=== PATIENT | female | born 1990 | race African-American/Black ===

== ENCOUNTER 2017-01-21 16:44 | Emergency (ER) | payer SELFPAY ==
[~2017-01-21] VITALS: Ht 160 cm; Wt 60.0 kg
[~2017-01-21 16:44] MED LIST: ACYCLOVIR400 MG OR; AMOXICILLIN500 MG OR; BACTRIM DS1 TAB PO; CEPHALEXIN500 MG PO; CIPRO500 MG OR; LORTAB 5/3255 MG PO; MELOXICAM7.5 MG PO; METFORMIN500 M1 OR; METFORMIN500 MG OR; METFORMIN500 MG PO; NAPROSYN500 MG OR; NO HOME MEDS; ONDANSETRON4 MG OR; PYRIDIUM200 MG OR; ZITHROMAX250 MG PO
[2017-01-21] MEDS ORDERED: AMOXICILLIN500 MG PO (18:11)
[2017-01-21] MEDS ORDERED: ULTRAM50 M1 PO (18:11)
[2017-01-21 19:07] LABS: HEMATOCRIT 34.6 % (37.0-47.0); HEMOGLOBIN 11.9 g/dl (12.0-16.0); IMMATURE GRANULOCYTES 0.2 % (0.0-1.0); MEAN CELL VOLUME 97.7 fL CALC (80.0-100.0); MEAN CORPUSCULAR HGB 33.6 pG CALC (26.0-32.0); MEAN CORPUSCULAR HGB CONC 34.4 g/L CALC (32.0-36.0); NEUT# 4.42 thou/uL (2.00-7.15); RED BLOOD COUNT 3.54 mill/uL (4.20-5.60); RED CELL DISTRI WIDTH 12.7 % (11.5-15.5)
[2017-01-21 19:13] LABS: ALBUMIN 4.8 g/dL (3.2-5.0); ALKALINE PHOSPHATASE 74 u/l (38-126); ANION GAP 14 (6-22 (CALC)); BILIRUBIN, TOTAL 0.5 mg/dL (0.0-1.4); BUN 15 mg/dL (7-17); BUN/CREATININE RATIO 18 (12-20 (CALC)); CALCIUM 9.8 mg/dL (8.4-10.2); CARBON DIOXIDE 25 mmol/l (22-30); CHLORIDE 109 mmol/l (95-108); CREATININE 0.8 mg/dL (0.5-1.0); GFR > 60 ML/MIN (>=60 (CALC)); GFR FOR AFR.AMER. > 60 ML/MIN (>=60 (CALC)); GLUCOSE 77 mg/dL (65-105); POTASSIUM 3.7 mmol/l (3.5-5.1); SGOT/AST 73 u/l (14-36); SGPT/ALT 25 u/l (9-52); SODIUM 143 mmol/l (137-146); TOTAL PROTEIN 8.8 g/dL (6.3-8.2)
[2017-01-21 19:25] LABS: MYOGLOBIN 18 ng/mL (0 - 62)
[2017-01-21] MEDS ORDERED: LISINOPRIL10 MG PO (23:19)
[2017-01-21 23:29] VITALS: BP 175/107
== END 2017-01-21 23:30 | disposition left against medical advice (07) | DRG 159 ==
LOC: ED 16:44
DX: K03.81 Cracked tooth (principal); E11.9 Type 2 diabetes mellitus without complications; R03.0 Elevated blood-pressure reading, without diagnosis of hypertension; F17.210 Nicotine dependence, cigarettes, uncomplicated; Z79.84 Long term (current) use of oral hypoglycemic drugs; Z91.19 Patient's noncompliance with other medical treatment and regimen

== ENCOUNTER 2017-07-30 01:25 | Emergency (ER) | payer SELFPAY ==
[~2017-07-30] VITALS: Ht 160 cm; Wt 65.0 kg
[~2017-07-30 01:25] MED LIST changes: +AMOXICILLIN500 MG PO; +LISINOPRIL10 MG PO; +ULTRAM50 M1 PO
[2017-07-30] MEDS ORDERED: CODEINE/GUAIFEN1 SOL PO (02:05)
[2017-07-30] MEDS ORDERED: AMOXICILLIN500 MG PO (02:05)
[2017-07-30 03:00] VITALS: BP 155/101
== END 2017-07-30 03:00 | disposition home or self-care (01) | DRG 153 ==
LOC: ED 01:25
DX: J06.9 Acute upper respiratory infection, unspecified (principal); F17.210 Nicotine dependence, cigarettes, uncomplicated; I10 Essential (primary) hypertension; R09.81 Nasal congestion; R05 Cough

== ENCOUNTER 2017-10-18 21:24 | Emergency (ER) | payer SELFPAY ==
[~2017-10-18] VITALS: Ht 160 cm; Wt 65.9 kg
[~2017-10-18 21:24] MED LIST changes: +CODEINE/GUAIFEN1 SOL PO
[2017-10-18 21:49] LABS: HEMATOCRIT 33.1 % (37.0-47.0); HEMOGLOBIN 11.3 g/dl (12.0-16.0); IMMATURE GRANULOCYTES 0.9 % (0.0-1.0); MEAN CELL VOLUME 97.4 fL CALC (80.0-100.0); MEAN CORPUSCULAR HGB 33.2 pG CALC (26.0-32.0); MEAN CORPUSCULAR HGB CONC 34.1 g/L CALC (32.0-36.0); NEUT# 5.43 thou/uL (2.00-7.15); RED BLOOD COUNT 3.4 mill/uL (4.20-5.60); RED CELL DISTRI WIDTH 11.9 % (11.5-15.5)
[2017-10-18 22:02] LABS: ANION GAP 15 (6-22 (CALC)); BILIRUBIN, TOTAL 0.2 mg/dL (0.0-1.4); BUN 20 mg/dL (7-17); BUN/CREATININE RATIO 19 (12-20 (CALC)); CARBON DIOXIDE 27 mmol/l (22-30); CHLORIDE 99 mmol/l (95-108); CREATININE 1.1 mg/dL (0.5-1.0); GFR 60 ML/MIN (>=60 (CALC)); GFR FOR AFR.AMER. > 60 ML/MIN (>=60 (CALC)); POTASSIUM 3.8 mmol/l (3.5-5.1); SGOT/AST 19 u/l (14-36); SGPT/ALT 31 u/l (9-52); SODIUM 138 mmol/l (137-146); TOTAL PROTEIN 7.5 g/dL (6.3-8.2)
[2017-10-18 22:09] LABS: ALBUMIN 3.5 g/dL (3.2-5.0); ALKALINE PHOSPHATASE 125 u/l (38-126)
[2017-10-18 22:48] LABS: URINE BILIRUBIN - DIPSTICK NEGATIVE (NEGATIVE); URINE BLOOD DIPSTICK LARGE (NEGATIVE); URINE COLOR YELLOW; URINE GLUCOSE - DIPSTICK >=1000 mg/dL (NEGATIVE); URINE KETONE NEGATIVE (NEGATIVE); URINE LEUK ESTERASE NEGATIVE (NEGATIVE); URINE NITRITE - DIPSTICK NEGATIVE (Negative); URINE PH 6.5 (4.5-8.0); URINE PROTEIN - DIPSTICK 100 mg/dL (NEG-TRACE); URINE SPECIFIC GRAVITY 1.015; URINE UROBILINOGEN - DIPSTICK 0.2 E.U./dL (0.2)
[2017-10-18 22:52] LABS: BARBITURATES NEGATIVE (NEGATIVE); COCAINE NEGATIVE (NEGATIVE); METHADONE NEGATIVE (NEGATIVE); OXCYCODONE NEGATIVE (NEGATIVE); TETRAHYDROCANNABIONOL NEGATIVE (NEGATIVE); TRICYLIC ANTIDEPRESSANTS NEGATIVE (NEGATIVE); URINE CLARITY SL CLOUDY
[2017-10-18 23:04] LABS: URINE MUCUS FEW hpf (NONE-FEW); URINE SQUAMOUS EPITHELIAL CELL MODERATE EPI/hpf (0-FEW)
[2017-10-19] MEDS ORDERED: METFORMIN500 M1 PO (00:46)
[2017-10-19 01:05] VITALS: BP 136/66
== END 2017-10-19 01:00 | disposition left against medical advice (07) | DRG 894 ==
LOC: ED 21:24
PROVIDERS: Emergency Medicine
DX: F19.90 Other psychoactive substance use, unspecified, uncomplicated (principal); E11.65 Type 2 diabetes mellitus with hyperglycemia; F17.210 Nicotine dependence, cigarettes, uncomplicated; Z91.19 Patient's noncompliance with other medical treatment and regimen

== ENCOUNTER 2018-05-30 09:19 | Emergency (ER) | payer SELFPAY ==
[~2018-05-30] VITALS: Ht 160 cm; Wt 68.6 kg
[~2018-05-30 09:19] MED LIST changes: +METFORMIN500 M1 PO
[2018-05-30] MEDS ORDERED: NORVASC5 M1 PO (09:47)
[2018-05-30] MEDS ORDERED: NOVOLIN N100 UNIT/1 SC (09:47)
[2018-05-30] MEDS ORDERED: METOPROL TAR25 MG PO (09:47)
[2018-05-30] MEDS ORDERED: LISINOPRIL2.5 MG PO (09:48)
[2018-05-30 11:01] LABS: HEMATOCRIT 28.7 % (37.0-47.0); HEMOGLOBIN 9.8 g/dl (12.0-16.0); IMMATURE GRANULOCYTES 0.7 % (0.0-5.0); MEAN CORPUSCULAR HGB 33.4 pG CALC (26.0-32.0); MEAN CORPUSCULAR HGB CONC 34.1 g/L CALC (32.0-36.0); NEUT# 9.76 thou/uL (2.00-7.15); RED BLOOD COUNT 2.93 mill/uL (4.20-5.60); RED CELL DISTRI WIDTH 13.6 % (11.5-15.5)
[2018-05-30 11:11] LABS: ALKALINE PHOSPHATASE 93 u/l (38-126); ANION GAP 8 (6-22 (CALC)); BILIRUBIN, TOTAL 0.3 mg/dL (0.0-1.4); BUN 15 mg/dL (7-17); BUN/CREATININE RATIO 17 (12-20 (CALC)); CARBON DIOXIDE 22 mmol/l (22-30); CREATININE 0.9 mg/dL (0.5-1.0); GFR > 60 ML/MIN (>=60 (CALC)); GFR FOR AFR.AMER. > 60 ML/MIN (>=60 (CALC)); LIPASE 112 u/l (23-300); POTASSIUM 4.1 mmol/l (3.5-5.1); SGOT/AST 18 u/l (14-36); SODIUM 139 mmol/l (137-146)
[2018-05-30 11:14] LABS: ALBUMIN 3.1 g/dL (3.2-5.0)
[2018-05-30 11:21] LABS: CHLORIDE 113 mmol/l (95-108)
[2018-05-30 13:18] VITALS: BP 161/80
== END 2018-05-30 14:08 | disposition home or self-care (01) | DRG 779 ==
LOC: ED 09:19
PROVIDERS: Family Medicine
DX: O03.9 Complete or unspecified spontaneous abortion without complication (principal); I10 Essential (primary) hypertension; E11.9 Type 2 diabetes mellitus without complications; F17.210 Nicotine dependence, cigarettes, uncomplicated; Z79.4 Long term (current) use of insulin
CPT/HCPCS: J2788

== ENCOUNTER 2018-11-18 03:08 | Emergency (ER) | payer SELFPAY ==
[~2018-11-18] VITALS: Ht 160 cm; Wt 65.9 kg
[~2018-11-18 03:08] MED LIST changes: +LISINOPRIL2.5 MG PO; +METOPROL TAR25 MG PO; +NORVASC5 M1 PO; +NOVOLIN N100 UNIT/1 SC
[2018-11-18] MEDS ORDERED: TORADOL PO (04:25)
[2018-11-18 04:47] VITALS: BP 159/106
== END 2018-11-18 04:48 | disposition home or self-care (01) | DRG 556 ==
LOC: ED 03:08
DX: M79.642 Pain in left hand (principal); I10 Essential (primary) hypertension; E11.9 Type 2 diabetes mellitus without complications; F17.200 Nicotine dependence, unspecified, uncomplicated

== ENCOUNTER 2018-11-21 16:48 | Emergency (ER) | payer SELFPAY ==
[~2018-11-21] VITALS: Ht 160 cm; Wt 70.0 kg
[~2018-11-21 16:48] MED LIST changes: +TORADOL PO
[2018-11-21 18:35] LABS: HEMATOCRIT 35.3 % (37.0-47.0); HEMOGLOBIN 12.2 g/dl (12.0-16.0); IMMATURE GRANULOCYTES 0.9 % (0.0-5.0); MEAN CELL VOLUME 96.7 fL CALC (80.0-100.0); MEAN CORPUSCULAR HGB 33.4 pG CALC (26.0-32.0); MEAN CORPUSCULAR HGB CONC 34.6 g/L CALC (32.0-36.0); NEUT# 19.36 thou/uL (2.00-7.15); RED BLOOD COUNT 3.65 mill/uL (4.20-5.60); RED CELL DISTRI WIDTH 12.9 % (11.5-15.5)
[2018-11-21 19:03] LABS: ALBUMIN 3.2 g/dL (3.2-5.0); BUN 10 mg/dL (7-17); BUN/CREATININE RATIO 12 (12-20 (CALC)); CARBON DIOXIDE 23 mmol/l (22-30); CREATININE 0.8 mg/dL (0.5-1.0); GFR > 60 ML/MIN (>=60 (CALC)); GFR FOR AFR.AMER. > 60 ML/MIN (>=60 (CALC)); POTASSIUM 3.8 mmol/l (3.5-5.1); SGOT/AST 13 u/l (14-36); TOTAL PROTEIN 6.9 g/dL (6.3-8.2)
[2018-11-21 19:10] LABS: ALKALINE PHOSPHATASE 189 u/l (38-126); ANION GAP 15 (6-22 (CALC)); BILIRUBIN, TOTAL 0.5 mg/dL (0.0-1.4); CHLORIDE 95 mmol/l (95-108); SODIUM 129 mmol/l (137-146)
[2018-11-21 21:30] VITALS: BP 150/90
== END 2018-11-21 21:30 | disposition home or self-care (01) | DRG 603 ==
LOC: ED 16:48
PROVIDERS: Emergency Medicine
DX: L03.114 Cellulitis of left upper limb (principal); R50.9 Fever, unspecified; R22.32 Localized swelling, mass and lump, left upper limb

== ENCOUNTER 2020-02-05 14:22 | Inpatient (IN) | payer SELFPAY ==
[~2020-02-05] VITALS: Ht 165.1 cm; Wt 54.0 kg
[2020-02-05] VITALS (9 sets, daily range): BP systolic 164–189; BP diastolic 99–117
--- NOTE | 2020-02-05 14:22 | NUR ---
PT TO ROOM VIA EMS; DECREASED RESPONSIVNESS; NOT FOLLOWING COMMANDS OR INTELIGIBLE SPEECH AT THIS TIME
--- NOTE | 2020-02-05 14:48 | NUR ---
PT MEDICATED AT THIS TIME FOR B/P 210/140 MANUAL; HR 155; PT CONTINUES TO FIDGET AND CONTINUOUSLY TOSSING AND TURNING ON STRETCHER; MONITORING DEVICES IN PLACE; SEIZURE PRECUATIONS IN PLACE; WILL CONTINUE TO MONITOR
[2020-02-05 15:06] LABS: HEMATOCRIT 36.3 % (37.0-47.0); HEMOGLOBIN 12.5 g/dl (12.0-16.0); IMMATURE GRANULOCYTES 0.8 % (0.0-5.0); MEAN CELL VOLUME 93.1 fL CALC (80.0-100.0); MEAN CORPUSCULAR HGB 32.1 pG CALC (26.0-32.0); MEAN CORPUSCULAR HGB CONC 34.4 g/dL CAL (32.0-36.0); NEUT# 19.22 thou/uL (2.00-7.15); RED BLOOD COUNT 3.9 mill/uL (4.20-5.60); RED CELL DISTRI WIDTH 12.2 % (11.5-15.5)
[2020-02-05 15:07] LABS: URINE BILIRUBIN - DIPSTICK NEGATIVE (NEGATIVE); URINE BLOOD DIPSTICK LARGE (NEGATIVE); URINE COLOR YELLOW; URINE GLUCOSE - DIPSTICK >=1000 mg/dL (NEGATIVE); URINE KETONE NEGATIVE (NEGATIVE); URINE LEUK ESTERASE NEGATIVE (NEGATIVE); URINE NITRITE - DIPSTICK NEGATIVE (Negative); URINE PH 6.5 (4.5-8.0); URINE PROTEIN - DIPSTICK >=300 mg/dL (NEG-TRACE); URINE UROBILINOGEN - DIPSTICK 0.2 E.U./dL (0.2)
[2020-02-05 15:10] LABS: URINE RBC 25-50 RBC/hpf (0-5); URINE SQUAMOUS EPITHELIAL CELL FEW EPI/hpf (0-FEW)
--- NOTE | 2020-02-05 15:12 | NUR ---
PT MEDICATED PER MAR FOR HI BLOOD SUGAR; IVF INFUSING; MONITORING DEVICES IN PLACE; PT ANSWERING QUESTIONS WITH SLURRED SPEECH; STILL UNABLE TO FOLLOW COMMANDS; MONITORING DEVICES IN PLACE; WILL CONTINUE TO CLOSELY MONITOR
[2020-02-05 15:14] LABS: BILIRUBIN, TOTAL 0.6 mg/dL (0.0-1.4); CREATININE 1.3 mg/dL (0.5-1.0); POTASSIUM 3.4 mmol/l (3.5-5.1); TOTAL PROTEIN 8.9 g/dL (6.3-8.2)
--- NOTE | 2020-02-05 16:20 | NUR ---
PT MEDICATED WITH VALIUM PER MAR; PT CONTINUOUS FLAILING AND PULLING AT MONITORING DEVICES NA D
--- NOTE | 2020-02-05 16:20 | NUR ---
IV SITE; ATTEMPTED TO REORIENT; MD AT BEDSIDE FOR FURTHER EVALUATION; PT CONTINUES 1:1
[2020-02-05 16:57] LABS: PROTHROMBIN TIME 9.5 SECONDS (9.0-12.5)
--- NOTE | 2020-02-05 17:12 | NUR ---
PT IN RADIOLOGY UNABLE TO REMAIN STILL; MEDICATED WITH VERSED PER DR MCKEON ORDERS; PT ABLE TO TOLERATE SCAN
--- NOTE | 2020-02-05 17:20 | NUR ---
ADALBERTO FABIAN AT BEDSIDE TO ASSIST WITH LUMBAR PUNCTURE; TIME OUT PERFORMED @1731 ALL TEAM MEMBERS IN AGREEMENT; PROCEDURE STARTED AT 1737 AND ENDED @1747; PT TOLERATED WELL; VSS; WILL CONTINUE TO MONITOR
--- NOTE | 2020-02-05 18:20 | NUR ---
PT RESTING ON STRETCHER; NO S/S OF DISTRESS NOTED; IVF AND ANTIBIOTICS INFUSING PER MAR; MONITORING DEVICES IN PLACE; VSS; WILL CONTINUE TO MONITOR
--- NOTE | 2020-02-05 18:54 | NUR ---
PT MEDICATED PER MAR FOR BGL 394; VSS; WILL CONTINUE TO MONITOR
--- NOTE | 2020-02-05 19:02 | NUR ---
REPORT GIVEN TO DUANE SHEARER
--- NOTE | 2020-02-05 20:08 | NUR ---
REPORT TO NATASHA ZEPEDA/ICU
--- NOTE | 2020-02-05 20:33 | NUR ---
NO CHANGE IN NEURO STATUS. PT TO FLOOR WITH MONITOR/O2/MASK/SEIZURE PADS.
--- NOTE | 2020-02-05 20:38 | NUR ---
RECEIVED PT TO RM 1. PT MOVING ALL EXTREMITIES. PT DOES NOT FOLLOW COMMANDS OR RESPOND VERBALLY. PT TRANSFERRED TO BED WITHOUT INCIDENT.
--- NOTE | 2020-02-05 21:38 | NUR ---
SPOKE WITH EMERGENCY MUCKER OPERATOR, HOLLEY, INFORMED OF PT CONDITION. PASS CODE PROVIDED.
--- NOTE | 2020-02-05 21:40 | NUR ---
SPOKE WITH AUNT, ANAIS, PER HOLLEY EMERGENCY CONTACT, BERNARD TO PROVIDE INFO AND PASS CODE.
--- NOTE | 2020-02-05 22:00 | NUR ---
PT MOVING EXTREMITES, NO VERBAL RESPONSE. SIDE RAILS PADDED.
--- NOTE | 2020-02-05 22:56 | NUR ---
B/P 189/117 LABETOLOL 10MG IV GIVEN PER MAR
[2020-02-06] VITALS (17 sets, daily range): BP systolic 132–193; BP diastolic 75–114
--- NOTE | 2020-02-06 00:15 | NUR ---
LAB AT BEDSIDE FOR TROP DRAW.
--- NOTE | 2020-02-06 02:04 | NUR ---
PT WITH EYES CLOSED, NO DISTRESS NOTED. CALL ARIAS IN REACH.
--- NOTE | 2020-02-06 04:00 | NUR ---
PT WITH EYES CLOSED, REMAINS NON VERBAL. PT MOVES WITH TACTILE STIMULI.
--- NOTE | 2020-02-06 06:05 | NUR ---
LAB AT BEDSIDE FOR DRAW.
[2020-02-06 06:31] LABS: MAGNESIUM 1.9 mg/dL (1.6-2.3)
--- NOTE | 2020-02-06 06:45 | NUR ---
REPORT RECEIVED FROM NATASHA ZEPEDA. CARE ASSUMED
[2020-02-06 06:56] LABS: HEMATOCRIT 30.8 % (37.0-47.0); HEMOGLOBIN 10.6 g/dl (12.0-16.0); IMMATURE GRANULOCYTES 0.4 % (0.0-5.0); MEAN CELL VOLUME 94.5 fL CALC (80.0-100.0); MEAN CORPUSCULAR HGB 32.5 pG CALC (26.0-32.0); MEAN CORPUSCULAR HGB CONC 34.4 g/dL CAL (32.0-36.0); NEUT# 12.17 thou/uL (2.00-7.15); RED BLOOD COUNT 3.26 mill/uL (4.20-5.60); RED CELL DISTRI WIDTH 12.4 % (11.5-15.5)
[2020-02-06 07:03] LABS: BILIRUBIN, TOTAL 0.5 mg/dL (0.0-1.4); CREATININE 1.3 mg/dL (0.5-1.0); POTASSIUM 3.3 mmol/l (3.5-5.1)
[2020-02-06 07:05] LABS: ALBUMIN 2.7 g/dL (3.2-5.0); TOTAL PROTEIN 6.4 g/dL (6.3-8.2)
--- NOTE | 2020-02-06 07:30 | NUR ---
PT RESTING IN BED WITH EYES CLOSED. PT AROUSES TO VERBAL STIMULI. PT IS ALERT AND ABLE TO STATE NAME ONLY. PT STATES THAT SHE DOES NOT KNOW WHERE SHE IS AND THAT IT IS YEAR 2009. PT REORIENTED. PT BP 168/113. DR JANSEN NOTIFIED. PT GIVEN AM MEDICATION EARLY FOR ELEVATED BP. PT HAD TO BE REMINDED FREQUENTLY TO DRINK WATER AND SWALLOW PILLS. PT REQUESTING CELL PHONE BE BROUGHT IN WILL NOTIFY FAMILY MEMBERS OF PT REQUEST. CALL LIGHT IN REACH. WILL CONTINUE TO MONITOR.
--- NOTE | 2020-02-06 08:00 | NUR ---
DR JANSEN AT BEDSIDE AND LAB AT BEDSIDE FOR REPEAT LACTIC ACID.
--- NOTE | 2020-02-06 09:15 | NUR ---
SPOKE WITH AUNT SUSSY MARIN WHO SPOKE WITH MOTHER WHO IS HEARING IMPAIRED AND RECEIVED VERBAL PERMISSION TO PLACE PICC LINE WITH SECOND WITNESS Judy CERVANTES RN.
--- NOTE | 2020-02-06 10:01 | NUR ---
MEDICATIONS GIVEN. BUCIO PLACED USING STERILE TECHNIQUE. IMMEADIATE RETURN OF URINE NOTED. PT TOLERATED WELL. LINENS CHANGED DUE TO MESES BLOOD ON SHEETS.
--- NOTE | 2020-02-06 10:15 | NUR ---
[id number] THIS STERILE PREPARATION TECHNICIAN AT BEDSIDE MULTIPLE TIMES TO ENCOURAGE PT TO KEEP ARM STRATIGHT FOR IV INFUSION. PT VERBALIZES UNDERSTANDING THEN NURSES EXITS ROOM AND PT DOES COMPLETE OPPOSITE. NURSE RE ENTERS ROOM WHEN IV ALARMS TO REORIENT PT AGAIN. PT CRIES ON OCCASION. PT HAVING NOSE BLEEDS AT THIS TIME WELL.
--- NOTE | 2020-02-06 10:52 | NUR ---
PT CONTINUOUSLY AND REPEATEDLY NOT FOLLOWING INSTRUCTIONS TO LEAVE ARM STRAIGHT FOR IV INFUSION.
--- NOTE | 2020-02-06 11:07 | NUR ---
DR JANSEN UPDATED ON PT STATUS. ORDERS RECEIVED TO HOLD ATIVAN FOR NOW DUE TO INCREASED CONFUSION. AND IF WORSENING CONFUSION IF PERSISTS OR NOSE BLEEDS PERSISTS TO CONSIDER INTUBATION.
--- NOTE | 2020-02-06 11:32 | NUR ---
S: KOREY CARLSON is a 29 F who presents with sepsis and meningitis. She has a history of diabetes and drug abuse. All medications in patient's chart were reviewed. O: VS: BP 185/101 mmHg, P 106 bpm, RR 16 breaths/min, T 97.3 F W 54 kg, HT 165.1 cm, Scr= 1.3 mg/dL, CrCl= 54.4 ml/min A: Blood culture is pending. CSF culture is pending. P: Patient is on ceftriaxone 2g IV Q12H. Vancomycin ordered for pharmacy to dose. Start Vancomycin 1g IV Q24H. Vancomycin trough is drawn before the 4th dose on 02/09/20 at 0830. Vancomycin goal trough is between 15-20 mcg/ml. Pharmacy will follow and or advise on antibiotics use as needed.
--- NOTE | 2020-02-06 11:58 | NUR ---
LAB AT BEDSIDE TO DRAW NOON TROPONIN.
--- NOTE | 2020-02-06 13:20 | NUR ---
PT TO RADIOLOGY VIA WHEELCHAIR ACCOMAPNIED BY HIDE SELECTOR IN STABLE CONDITION FOR PICC LINE PLACEMENT
--- NOTE | 2020-02-06 14:00 | NUR ---
PT RETURNED FROM RADIOLOGY VIA STRETCHER ACCOMPANIED BY TICK INSPECTOR. PT HAS DUAL LUMEN PICC TO JULY. PT TRANSFERRED TO BED X3 PERSON ASSIST. PT TEARFUL, ARGUMENTITIVE WITH STAFF. PT DOES NOT MAKE SENSE. PT PULLING AT EQUIPMENT. PT ENCOURAGED TO LEAVE ALL EQUIPMENT IN PLACE. PT STATES THAT SHE IS NOT MESSING WITH ANYTHING.
--- NOTE | 2020-02-06 14:05 | NUR ---
PT ATTEMPTING TO GET OUT OF BED. THIS NURSE INTO ROOM. THIS PT STATES I HAVE TO POOP. THIS PATIENT ASSISTED UP TO BSC. PT NOTED TO HAVE WEAK GAIT MORE SO ON LEFT SIDE. PT NOTED TO HAVE SLURRED SPEECH. ASKED IF THIS IS HER NORM. PT STATED NO. PT IS ALERT TO NAME AND PLACE. PT STATES THAT IS IS OCTOBER 2009. PT IMMEADIATELY ASSISTED BACK TO BED. DR JANSEN NOTIFIED. STROKE ALERT CALLED DOCUMENTATION FOLLOWS.
--- NOTE | 2020-02-06 14:28 | NUR ---
DR JANSEN NOTIFIED OF SLURRED SPEECH & LEFT SIDED WEAKNESS, DIFFERENCE IN CRIMINAL INVESTIGATIVE AGENT, & FACIAL DROOP. PT DENIES PREVIOUS STROKE. PER DR JANSEN, CALL STROKE ALERT & REPEAT CT.
--- NOTE | 2020-02-06 14:31 | NUR ---
STROKE ALERT CALLED
--- NOTE | 2020-02-06 14:40 | NUR ---
THIS RN AT BEDSIDE FOR STROKE ALERT; MEND ASSESSMENT COMPLETED SCORE 6; PT ALERT, SPEECH SLURRED, CONFUSED TO MONTH AND YEAR, VISUAL DEFICIT IN LEFT UPPER VISON FIELD, AND ATAXIA TO LEFT UPPER AND LOWER EXTREMITIES;PT TAKEN TO CT WITH ICU NURSE DUANE GEORGE; TELENEUROLOGY CONSULTED;
--- NOTE | 2020-02-06 14:41 | NUR ---
PT OUT THE DOOR TO CT WITH DUANE GEORGE & CHARLOTTE STROKE RN FROM ER.
--- NOTE | 2020-02-06 15:11 | NUR ---
PT RETURNS FROM CT BY STRETCHER WITH RN. TRANSFERED TO BED.
--- NOTE | 2020-02-06 15:22 | NUR ---
DR JANSEN NOTIFIED OF [facility] AND RECCOMMENDATIONS OF TELE NEUROLOGIST.
--- NOTE | 2020-02-06 15:45 | NUR ---
RECEIVED ORDERS FROM DR JANSEN FOR MRI. ORDERS PLACED. RADIOLOGY NOTIFIED. NO TECH AVAILABLE FOR MRI TODAY. DR JANSEN NOTIFIED.
--- NOTE | 2020-02-06 16:38 | NUR ---
PT RESTING IN BED WITH EYES CLOSED. RESP ARE EVEN AND UNLABORED. NO DISTRESS NOTED. CALL LIGHT IN REACH. WILL CONTINUE TO MONITOR.
--- NOTE | 2020-02-06 16:52 | NUR ---
THIS HARD TILE SETTER INTO ROOM TO COMPLETE ACCUCHECK PT STARTS CRYING STATING I HURT WHEN QUESTIONED WHERE SHE STATES HER ENTIRE BODY HURTS ALL OVER. INSTRUCTED PT TO TRY AND RELAX.
--- NOTE | 2020-02-06 17:30 | NUR ---
PT SET UP IN BED FOR PM MEAL AT THIS TIME. PT STATES THAT SHE WILL EAT. ASSISTED IN TRAY SET UP.
--- NOTE | 2020-02-06 18:00 | NUR ---
PT NOTED TO NOT BE EATING AND TO BE SLEEPING. PT ENCOURAGED TO EAT. PT STATES THAT SHE WILL EAT.
--- NOTE | 2020-02-06 19:10 | NUR ---
PT AWAKE WHEN ENTERING ROOM. PT STARTED CRYING, STATED SHE WANTS TO GO HOME. PT ABLE TO STATE DATE OF AND LOCATION.
--- NOTE | 2020-02-06 20:00 | NUR ---
PT UNDER BLANKET. RESPONDS TO VERBAL STIMULI. L EYE MORE CLOSED THAN R. L CORRECTIONS CORPORAL WEAKER THAN R. PT MOVES L UPPER EXTREMITY, ABLE TO HOLD L ARM UP. NO DEFICITS NOTED TO LOWER EXXTREMITIES. SPEECH IS SLURRED, ORIENTED TO NAME, LOCATION. CALL ARIAS IN REACH.
--- NOTE | 2020-02-06 21:20 | NUR ---
HOLLEY CALLED, PASSWORD GIVEN. PROVIDED UPDATE ON PT.
--- NOTE | 2020-02-06 22:00 | NUR ---
PT RELATED SHE WAS HUNGRY, JUICE AND CRACKERS PROVIDED.
--- NOTE | 2020-02-06 22:17 | NUR ---
PT ROLLED ONTO L SIDE. CALL ARIAS IN REACH.
[2020-02-07] VITALS (10 sets, daily range): BP systolic 111–186; BP diastolic 66–114
--- NOTE | 2020-02-07 | NUR ---
PT WITH EYES CLOSED, RESPONDED TO VERBAL STIMULI. PT ORIENTED TO PERSON AND PLACE. CALL ARIAS IN REACH.
--- NOTE | 2020-02-07 01:38 | NUR ---
PT PULLING AT BLANKETS AND GOWN. PT CRYING, DOESNT WANT TO BE HERE. ROLLED ON R SIDE, LARGER BLANKET PROVIDED. PROVIDED REORIENTATION AND CALMING WORDS. PT TO TRY TO GO BACK TO SLEEP.
--- NOTE | 2020-02-07 02:16 | NUR ---
PT REMOVED MONITOR LEADS, SA02. INFORMED PT SHE NEEDS TO LEAVE THOSE ON. PT RELATED SHE WOULD. REPOSITIONED LEADS FOR PT COMFORT. PLACED BLANKET ON PT. CALL ARIAS IN REACH.
--- NOTE | 2020-02-07 04:00 | NUR ---
PT WITH EYES CLOSED, RESPONDED TO VERBAL STIMULI. NEURO NOTED.
--- NOTE | 2020-02-07 04:55 | NUR ---
PT WITH HEAVY BLANKET OVER HEAD. SKIN WARM TO TOUCH. PT WANTS BLANKET BACK OVER HEAD.
[2020-02-07 05:47] LABS: HEMATOCRIT 26.1 % (37.0-47.0); HEMOGLOBIN 8.7 g/dl (12.0-16.0); IMMATURE GRANULOCYTES 0.4 % (0.0-5.0); MEAN CORPUSCULAR HGB 32.3 pG CALC (26.0-32.0); MEAN CORPUSCULAR HGB CONC 33.3 g/dL CAL (32.0-36.0); NEUT# 8.2 thou/uL (2.00-7.15); RED BLOOD COUNT 2.69 mill/uL (4.20-5.60); RED CELL DISTRI WIDTH 12.8 % (11.5-15.5)
--- NOTE | 2020-02-07 06:00 | NUR ---
PT REMAINS UNDER BLANKETS, PT RELATED SHE LIKES TO BE HOT. INFORMED OF MRI TODAY. PT WITH CONTINUED L HAND WEAKNESS. NO CHANGE THIS SHIFT.
[2020-02-07 06:15] LABS: ALKALINE PHOSPHATASE 78 u/l (38-126); ANION GAP 5 (6-22 (CALC)); BILIRUBIN, TOTAL 0.4 mg/dL (0.0-1.4); BUN 16 mg/dL (7-17); BUN/CREATININE RATIO 13 (12-20 (CALC)); CARBON DIOXIDE 24 mmol/l (22-30); CHLORIDE 110 mmol/l (95-108); CREATININE 1.2 mg/dL (0.5-1.0); GFR 53 ML/MIN (>=60 (CALC)); GFR FOR AFR.AMER. > 60 ML/MIN (>=60 (CALC)); MAGNESIUM 1.9 mg/dL (1.6-2.3); POTASSIUM 3.6 mmol/l (3.5-5.1); SGOT/AST 35 u/l (14-36); SODIUM 136 mmol/l (137-146)
--- NOTE | 2020-02-07 07:35 | NUR ---
pt awake in bed; crying loudly; very emotional; trashing about in the bed; telegraphic typewriter installer at bedside for assessment; pt unable to explained to this telegraphic typewriter installer concerns; pt admits to not knowing why she is here and stating she wants to go home; admission, plan of care explained; relaxation tech explained and pt more relaxed; pt alert to person and place; able to state year only; denies pain; no n/v noted; resp even and unlabored; lungs clear; skin color wnl; ra; hr reg; strong pulses; no edema noted; st on monitor; abd soft with bs present; no bm noted per telegraphic typewriter installer; saba to gravity draining clear yellow urine; dual picc line intact to ariane with ivf infusing without complication; no redness or edema noted at site; facial edema noted; call light within reach; will continue to monitor
--- NOTE | 2020-02-07 07:50 | NUR ---
Dr Smyth present at bedside to assess pt and discuss plan of care;
--- NOTE | 2020-02-07 08:54 | NUR ---
boiled eggs provided as per request
--- NOTE | 2020-02-07 10:07 | NUR ---
resting in bed with eyes closed; no apparent distress noted; sr on monitor; saba to gravity; iv intact and patent; repositions self; call light within reach; will continue to monitor
--- NOTE | 2020-02-07 11:08 | NUR ---
awake; anxious; sitting on side of bed requesting to go home; serevity of illness explained; plan of care including MRI explained; pt very adamant about leaving; agree to MRI; bed alarm active for pt safety; will continue to monitor
--- NOTE | 2020-02-07 12:00 | NUR ---
awake in bed eating lunch; no apparent distress noted; pt admits to being uncomfortable; pt states "I'm laying here naked"; pt continues to remove gown and cardiac monitoring leads; plan of care explained; pt alert and oriented; admits to primary care Dr Benedict; admits to getting meds filled by Dr Benedict; pt states she has not seen Dr Cruz in a "long time"; saba to gravity; st on monitor; iv intact and patent; increased visual observation for pt safety; bed alarm activated for pt safety; importance of not signing out AMA explained; pt explained risk of leaving AMA; will continue to monitor
--- NOTE | 2020-02-07 12:18 | NUR ---
call received from internet designer for mother pt Melanie Escalante; update provided; mother states via light armored vehicle officer she's going to beau the hospital; mother very concerned and daughter; plan of care including MRI explained; mother to call this conventional underwriter back at 1500 for update and planned visitation; will continue to monitor
--- NOTE | 2020-02-07 14:00 | NUR ---
pt transferred to MRI via wc accompanied by this commercial lines underwriter in stable condition; will continue to monitor
--- NOTE | 2020-02-07 14:50 | NUR ---
returned to unit via wc accompanied by this field underwriter in stable condition; monitoring attachments attached; po fluids/ snack provided as per request; pt wanting to leave AMA: advised to stay; saba to gravity; will continue to monitor
--- NOTE | 2020-02-07 15:05 | NUR ---
mother Deanne Escalante called via hair designer; update provided; mother to visit
--- NOTE | 2020-02-07 15:16 | NUR ---
bp 186/114; medicated with labetalol as per orders; pt has removed monitoring attachmens; reapplied; pt very frustrated and tearful; crying loudly; reassured; will continue to monitor
--- NOTE | 2020-02-07 15:26 | NUR ---
mother present at bedside
--- NOTE | 2020-02-07 15:35 | NUR ---
Screen: Speech Therapy not indicated at this time.
--- NOTE | 2020-02-07 15:35 | NUR ---
staff present at bedside; pt very adamant about leaving AMA: Cyril Duval LPN at bedside to interpret sign lang to mother; pt condition explained it great detail; risk of leaving AMA explained to pt and mother including detoriation in condition, stroke and ; pt alert and oriented; able to answer questions appropriately; will notify MD
--- NOTE | 2020-02-07 15:53 | NUR ---
Dr Smyth called per typewriter mechanic; explained pt is wanting to sign out AMA: bp of 180s/110s explained; pt prev medicated with labetalol as per orders; pt alert and oriented; mother Melanie present at bedside and unable to convince pt to stay; pt concerned about hospital bill and going to work; no orders received;
--- NOTE | 2020-02-07 16:00 | NUR ---
Coby Campos APRN present at bedside to speak with pt in regards to leaving AMA; will continue to monitor
--- NOTE | 2020-02-07 16:40 | NUR ---
mother at bedside; pt demanding to go home; AMA explained again in great detail; pt educated on potential decline in condition including ; elevated BP explained and conditions hich could arise from elevated bp; pt decline to allow leader writer to assess glucose; catheter and picc line removed; pt verbalizing understanding of leaving AMA and verbalizes understanding of potential decline in condition; pt able to states name, month, year and place; able to answer questions such as city, president; pt left unit AMA
[2020-02-07] MEDS ORDERED: LISINOPRIL20 M1 PO (16:48)
[2020-02-07] MEDS ORDERED: AMLODIPINE BESYL5 MG PO (16:48)
[2020-02-07] MEDS ORDERED: LOPRESSOR 550 MG/TAB PO (16:48)
--- NOTE | 2020-02-07 17:15 | NUR ---
this grant writer received a call from Dr Smyth; MRI reviewed; pt with acute ischemia as per report; Pt Mary Ann Brooks called at [phone] and informed of these results of acute stroke; pt advised to seek medical attention/ follow up with primary care physician HONG
--- NOTE | 2020-02-07 17:30 | NUR ---
s/o Dago called; passcode verified; updated on pt status/ pt left AMA; MRI results reviewed with next of kin; Dago informed pt will require follow up with pcp
== END 2020-02-07 16:40 | disposition left against medical advice (07) | DRG 871 ==
LOC: EDBD 14:22 → ED 14:22 → ED-I 19:00 → ED 19:10 → ICU 19:11 → ED-I 19:11 → ED 19:11 → ICU 19:56
PROVIDERS: Emergency Medicine; Internal Medicine; ADMIT Internal Medicine; ATTEND Internal Medicine
PROC: 009U3ZX Drainage of Spinal Canal, Percutaneous Approach, Diagnostic (ICD-10-PCS; principal; 2020-02-05)
PROC: 05H933Z Insertion of Infusion Device into Right Brachial Vein, Percutaneous Approach (ICD-10-PCS; 2020-02-06)
DX: A41.9 Sepsis, unspecified organism (principal); G93.41 Metabolic encephalopathy; G04.90 Encephalitis and encephalomyelitis, unspecified; I63.89 Other cerebral infarction; E87.2 Acidosis; R47.81 Slurred speech; R29.702 NIHSS score 2; R65.20 Severe sepsis without septic shock; I16.0 Hypertensive urgency; I10 Essential (primary) hypertension; E11.65 Type 2 diabetes mellitus with hyperglycemia; E87.6 Hypokalemia; F17.200 Nicotine dependence, unspecified, uncomplicated; Z79.4 Long term (current) use of insulin; Z20.828 Contact with and (suspected) exposure to other viral communicable diseases
CPT/HCPCS: J0131; J2060; J3360

== ENCOUNTER 2020-02-17 12:56 | Emergency (ER) | payer SELFPAY ==
[~2020-02-17] VITALS: Ht 165.1 cm; Wt 62.7 kg
[~2020-02-17 12:56] MED LIST changes: +AMLODIPINE BESYL5 MG PO; +LISINOPRIL20 M1 PO; +LOPRESSOR 550 MG/TAB PO
[2020-02-17 13:59] LABS: IMMATURE GRANULOCYTES 0.5 % (0.0-5.0); MEAN CELL VOLUME 95.3 fL CALC (80.0-100.0); MEAN CORPUSCULAR HGB 32.2 pG CALC (26.0-32.0); MEAN CORPUSCULAR HGB CONC 33.8 g/dL CAL (32.0-36.0); NEUT# 14.06 thou/uL (2.00-7.15); RED BLOOD COUNT 3.6 mill/uL (4.20-5.60); RED CELL DISTRI WIDTH 12.3 % (11.5-15.5)
[2020-02-17 14:07] LABS: HEMATOCRIT 34.3 % (37.0-47.0); HEMOGLOBIN 11.6 g/dl (12.0-16.0)
[2020-02-17 14:25] LABS: ACT PARTIAL THROMBO TIME 26.5 SECONDS (20.0-32.5); PROTHROMBIN TIME 9.7 SECONDS (9.0-12.5)
[2020-02-17 15:08] LABS: CREATININE 1.5 mg/dL (0.5-1.0)
[2020-02-17 16:13] LABS: URINE BILIRUBIN - DIPSTICK NEGATIVE (NEGATIVE); URINE BLOOD DIPSTICK MODERATE (NEGATIVE); URINE COLOR YELLOW; URINE GLUCOSE - DIPSTICK >=1000 mg/dL (NEGATIVE); URINE KETONE TRACE mg/dL (NEGATIVE); URINE LEUK ESTERASE NEGATIVE (NEGATIVE); URINE NITRITE - DIPSTICK NEGATIVE (Negative); URINE PH 6.5 (4.5-8.0); URINE PROTEIN - DIPSTICK >=300 mg/dL (NEG-TRACE); URINE SPECIFIC GRAVITY 1.015; URINE UROBILINOGEN - DIPSTICK 0.2 E.U./dL (0.2)
[2020-02-17 16:18] LABS: URINE SQUAMOUS EPITHELIAL CELL FEW EPI/hpf (0-FEW)
[2020-02-17 17:49] VITALS: BP 157/104
--- NOTE | 2020-02-19 09:54 | NUR ---
PT WAS TRANSFERRED FROM ER BUT LEFT SOME OF HER HOME MEDS. THEY ARE IN PHARMACY.
== END 2020-02-17 18:11 | disposition short-term general hospital (02) | DRG 999 ==
LOC: ED 12:56
PROVIDERS: Student in an Organized Health Care Education/Training Program
DX: R56.9 Unspecified convulsions (principal); E11.00 Type 2 diabetes mellitus with hyperosmolarity without nonketotic hyperglycemic-hyperosmolar coma (NKHHC); N17.9 Acute kidney failure, unspecified; G93.40 Encephalopathy, unspecified; R79.89 Other specified abnormal findings of blood chemistry; F17.200 Nicotine dependence, unspecified, uncomplicated; Z79.4 Long term (current) use of insulin; Z86.73 Personal history of transient ischemic attack (TIA), and cerebral infarction without residual deficits

== ENCOUNTER 2020-03-02 22:43 | Emergency (ER) | payer SELFPAY ==
[~2020-03-02] VITALS: Ht 165.1 cm; Wt 63.6 kg
[2020-03-02 23:29] LABS: HEMATOCRIT 31.7 % (37.0-47.0); HEMOGLOBIN 10.6 g/dl (12.0-16.0); IMMATURE GRANULOCYTES 0.5 % (0.0-5.0); MEAN CELL VOLUME 97.2 fL CALC (80.0-100.0); MEAN CORPUSCULAR HGB 32.5 pG CALC (26.0-32.0); MEAN CORPUSCULAR HGB CONC 33.4 g/dL CAL (32.0-36.0); NEUT# 11.31 thou/uL (2.00-7.15); RED BLOOD COUNT 3.26 mill/uL (4.20-5.60); RED CELL DISTRI WIDTH 12.5 % (11.5-15.5)
[2020-03-02 23:44] LABS: BILIRUBIN, TOTAL 0.3 mg/dL (0.0-1.4); CREATININE 1.4 mg/dL (0.5-1.0); POTASSIUM 3.9 mmol/l (3.5-5.1)
[2020-03-02 23:56] LABS: ALBUMIN 3.3 g/dL (3.2-5.0); TOTAL PROTEIN 7.1 g/dL (6.3-8.2)
[2020-03-03] MEDS ORDERED: DILANTIN100 MG PO (04:42)
[2020-03-03 05:10] VITALS: BP 101/54
== END 2020-03-03 05:10 | disposition home or self-care (01) | DRG 639 ==
LOC: ED 22:43
PROVIDERS: Family Medicine
DX: E11.65 Type 2 diabetes mellitus with hyperglycemia (principal); I10 Essential (primary) hypertension; G40.909 Epilepsy, unspecified, not intractable, without status epilepticus; F17.200 Nicotine dependence, unspecified, uncomplicated; Z86.73 Personal history of transient ischemic attack (TIA), and cerebral infarction without residual deficits
CPT/HCPCS: J2060

== ENCOUNTER 2020-03-07 18:33 | Inpatient (IN) | payer SELFPAY ==
[~2020-03-07] VITALS: Ht 165.1 cm; Wt 63.0 kg
[~2020-03-07 18:33] MED LIST changes: +DILANTIN100 MG PO
--- NOTE | 2020-03-07 18:33 | NUR ---
PT ARRIVES VIA EMS UNRESPONSIVE WITH NASAL TRUMPET. PT FLAILING ARMS AND LEGS, INCOHHERENT. OXYGEN VIA NON REBREATHER.EDP TO BEDSIDE
--- NOTE | 2020-03-07 18:35 | NUR ---
VERBALIZES INCOHERENTLY DOES NOT FOLLOW COMMANDS. INCONTINENT OF URINE. CLOTHES REMOVED AND PLACED IN GOWN.
--- NOTE | 2020-03-07 19:15 | NUR ---
SOFT BILAT WRIST RESTRAINTS APPLIED. PT PULLING AT EVERYTHING. BUCIO PLACED WITHOUT PROBLEM, SPECIMEN TO LAB.
[2020-03-07 19:40] LABS: HEMATOCRIT 27.2 % (37.0-47.0); HEMOGLOBIN 8.8 g/dl (12.0-16.0); IMMATURE GRANULOCYTES 0.7 % (0.0-5.0); MEAN CELL VOLUME 98.9 fL CALC (80.0-100.0); MEAN CORPUSCULAR HGB CONC 32.4 g/dL CAL (32.0-36.0); NEUT# 18.22 thou/uL (2.00-7.15); RED BLOOD COUNT 2.75 mill/uL (4.20-5.60); RED CELL DISTRI WIDTH 12.9 % (11.5-15.5)
[2020-03-07 19:43] LABS: URINE BILIRUBIN - DIPSTICK NEGATIVE (NEGATIVE); URINE BLOOD DIPSTICK SMALL (NEGATIVE); URINE COLOR YELLOW; URINE GLUCOSE - DIPSTICK >=1000 mg/dL (NEGATIVE); URINE KETONE NEGATIVE (NEGATIVE); URINE LEUK ESTERASE NEGATIVE (NEGATIVE); URINE NITRITE - DIPSTICK NEGATIVE (Negative); URINE PROTEIN - DIPSTICK 100 mg/dL (NEG-TRACE); URINE SPECIFIC GRAVITY >=1.030; URINE UROBILINOGEN - DIPSTICK 0.2 E.U./dL (0.2)
[2020-03-07 19:49] LABS: URINE RBC 0-2 RBC/hpf (0-5); URINE SQUAMOUS EPITHELIAL CELL RARE EPI/hpf (0-FEW); URINE WBC 0-2 WBC/hpf (0-5)
[2020-03-07 19:55] LABS: ALBUMIN 3.3 g/dL (3.2-5.0); BILIRUBIN, TOTAL 0.3 mg/dL (0.0-1.4); CREATININE 1.3 mg/dL (0.5-1.0); POTASSIUM 4.2 mmol/l (3.5-5.1); TOTAL PROTEIN 7.3 g/dL (6.3-8.2)
--- NOTE | 2020-03-07 20:00 | NUR ---
ACTIVELY MOVING IN BED PULLING AT RESTRAINTS
--- NOTE | 2020-03-07 21:00 | NUR ---
CONTINUES TO NOT FOLLOW COMMANDS, MOVING ALL EXTREMITIES.
[2020-03-07] MEDS ORDERED: LABETALOL HYDR100 MG PO (21:39)
[2020-03-07] MEDS ORDERED: ATORVASTATIN CA20 MG PO (21:42)
[2020-03-07] MEDS ORDERED: HYDROXYZ HCL25 MG PO (21:44)
[2020-03-07] MEDS ORDERED: LISI20TA5 PO (21:46)
[2020-03-07] MEDS ORDERED: FLUOXETINE20 MG PO (21:47)
--- NOTE | 2020-03-07 22:00 | NUR ---
NO SIGNIFICANT CHANGE IN EXAM.
[2020-03-07] MEDS ORDERED: EQ ASPIRIN LOW81 MG PO (22:11)
[2020-03-07] MEDS ORDERED: NORVASC5 M1 PO (22:13)
--- NOTE | 2020-03-07 23:00 | NUR ---
DECREASED AGITATION AT TIMES.
[2020-03-08] VITALS (33 sets, daily range): BP systolic 123–199; BP diastolic 69–120
--- NOTE | 2020-03-08 | NUR ---
OPENS EYES TO VOICE. MINIMAL VERBALIZATION.
--- NOTE | 2020-03-08 00:22 | NUR ---
UOP 1600 CC
--- NOTE | 2020-03-08 00:49 | NUR ---
29 yr old black female admitted icu8 per stretcher from er. transferred x4 to bed. bed weight obtained. pt is sedated. does not fully arouse. o2 cont per nc. youth nutritional monitor shows sinus tach hr 113. #20 lt hand saline lock. #22 rt hand. ns bolus cont. history obtained per er & old record. fall, seizure & air/contact precautions initiated.
--- NOTE | 2020-03-08 00:50 | NUR ---
Admission Note Report Given to: DUANE STRONG Transported by: Wheelchair X Stretcher Transported with: X Nurse Transporter X Patent IV X O2 X Stock Trader Location: X ICU MS2
--- NOTE | 2020-03-08 02:30 | NUR ---
dr spears notified of cont htn. orders rec'd.
--- NOTE | 2020-03-08 04:00 | NUR ---
rousing slightly. confused. plumber cub shows sinus tach hr 126.
[2020-03-08 05:29] LABS: BASO% 1 % (0-3); EOS% 1 % (0-8); HEMATOCRIT 25.2 % (37.0-47.0); HEMOGLOBIN 8.5 g/dl (12.0-16.0); IMMATURE GRANULOCYTES 0.5 % (0.0-5.0); LYMPH% 18 % (15-41); MEAN CELL VOLUME 98.8 fL CALC (80.0-100.0); MEAN CORPUSCULAR HGB 33.3 pG CALC (26.0-32.0); MEAN CORPUSCULAR HGB CONC 33.7 g/dL CAL (32.0-36.0); MONO% 9 % (2-13); NEUT# 14.29 thou/uL (2.00-7.15); NEUT% 72 % (42-76); PLATELET COUNT 419 thou/uL (130-400); RED BLOOD COUNT 2.55 mill/uL (4.20-5.60); RED CELL DISTRI WIDTH 13.1 % (11.5-15.5)
--- NOTE | 2020-03-08 05:45 | NUR ---
rt here. ekg obtained.
[2020-03-08 05:53] LABS: ALBUMIN 2.8 g/dL (3.2-5.0); ALKALINE PHOSPHATASE 124 u/l (38-126); ANION GAP 6 (6-22 (CALC)); BUN 23 mg/dL (7-17); BUN/CREATININE RATIO 23 (12-20 (CALC)); CARBON DIOXIDE 25 mmol/l (22-30); CHLORIDE 108 mmol/l (95-108); GFR > 60 ML/MIN (>=60 (CALC)); GFR FOR AFR.AMER. > 60 ML/MIN (>=60 (CALC)); POTASSIUM 4.8 mmol/l (3.5-5.1); SODIUM 133 mmol/l (137-146); TOTAL PROTEIN 6.6 g/dL (6.3-8.2)
[2020-03-08 06:00] LABS: BILIRUBIN, TOTAL 1.4 mg/dL (0.0-1.4); SGOT/AST 56 u/l (14-36)
--- NOTE | 2020-03-08 06:45 | NUR ---
REPORT RECEIVED FROM LIGIA MORGAN. CARE ASSUMED.
--- NOTE | 2020-03-08 07:35 | NUR ---
PT RESTING IN BED AWAKE. PT IS ALERT AND ORIENTED X3. SHIFT ASSESSMENT COMPLETED AT THIS TIME. IV PATENT X2. CALL LIGHT IN REACH. WILL CONTINUE TO MONITOR.
--- NOTE | 2020-03-08 08:01 | NUR ---
PT note Patient is screened for PT intervention and it is felt she has no needs at this time
--- NOTE | 2020-03-08 08:08 | NUR ---
DR JANSEN AT BEDSIDE.
--- NOTE | 2020-03-08 08:15 | NUR ---
RESTRAINTS REMOVED AT THIS TIME
--- NOTE | 2020-03-08 09:00 | NUR ---
SITTER AT BEDSIDE AT THIS TIME
--- NOTE | 2020-03-08 09:27 | NUR ---
BOYFRIEND HOLLEY CALLED WITH CONCERNS OF PT SMOKING K2 TO OVERDOSE AND NOT FOLLOWING UP WITH DOCTOR APPTS. REQUESTING IF PT CAN BE CHRISTOPHE ACTED EXPLAINED THAT I WOULD HAVE TO NOTIFY MD OF CONCERNS AND IT WOULD BE HIS DECISION TO CHRISTOPHE ACT.
--- NOTE | 2020-03-08 09:40 | NUR ---
PT PULLING AT MEDICAL EQUIPMENT AND THRASHING IN BED. REORIENTED PT. SITTER REMAINS AT BEDSIDE.
--- NOTE | 2020-03-08 10:04 | NUR ---
NOTIFIED DR JANSEN REFERENCE INCREASED AGITATION OF PATIENT ANF FAMILY CONCERNS AND THAT PT WAS SMOKING K2 IN LARGE AMOUNTS TO OVERDOSE. NEW ORDERS RECEIVED. ORDER RECEIVED FOR CHRISTOPHE BAY. SITFLOR AT BEDSIDE.
--- NOTE | 2020-03-08 10:10 | NUR ---
NOTIFIED BOYFRIED/ NEXT OF KIN HOLLEY THAT PT WAS NOW SAEED ACTED.
--- NOTE | 2020-03-08 10:32 | NUR ---
PT MEDICATED WITH ATIVAN PER SEP AND MD ORDERS FOR AGITATION AND PULING AT MEDICAL EQUIPMENT. SITTER REMAINS AT BEDSIDE.
--- NOTE | 2020-03-08 11:30 | NUR ---
PT REFUSED MEAL TRAY. WILL HOLD 1130 NOVOLOG DUE TO RECENT LEVEMIR BEING GIVEN AND PT NOT EATING. SITTER AT BEDSIDE. WILL CONTINUE TO MONITOR.
--- NOTE | 2020-03-08 13:00 | NUR ---
PT RESTING IN BED WITH EYES CLOSED. RESP ARE EVEN AND UNLABORED. NO DISTRESS NOTED. CALL LIGHT IN REACH. WILL CONTINUE TO MONITOR
--- NOTE | 2020-03-08 13:45 | NUR ---
PT NOTED TO HAVE FACIAL SWELLING AND ANGIOEDEMA. TONGUE NOT SWOLLEN. PT DENIES DIFFICULTY BREATHING O2 100% ON ROOM AIR. DR JANSEN NOTIFIED. NEW ORDERS RECEIVED.
--- NOTE | 2020-03-08 14:07 | NUR ---
LISINOPRIL LISTED AN ALLERGY NOW
--- NOTE | 2020-03-08 14:29 | NUR ---
PT RESTING IN BED PT MEDICATED PER MAR WITH BENADRYL AND SOLUMEDROL.
--- NOTE | 2020-03-08 15:00 | NUR ---
REASSESSED SWELLING OF FACE AND NECK. FACE AND NECK STILL APPEARS SWOLLEN. WILL CONTINUE TO MONITOR.
--- NOTE | 2020-03-08 16:00 | NUR ---
PT RESTING IN BED WITH EYES CLOSED. VSS ON MONITOR. SITTER REMIANS AT BEDSIDE. RESP ARE EVEN AND UNLABORED. NO DISTRESS NOTED. WILL CONTINUE TO MONITOR.
--- NOTE | 2020-03-08 16:37 | NUR ---
MOTHER CALLED FOR UPDATE THROUGH INTERPRETING SERVICES. ABLE TO VERIFY NAME AND . UPDATE PROVIDED.
--- NOTE | 2020-03-08 16:55 | NUR ---
LINA BABB PHONED FOR UPDATE. UPDATE PROVIDED.
--- NOTE | 2020-03-08 18:00 | NUR ---
PT RESTING IN BED. PT MORE EASILY AROUSABLE. PT LESS SWOLLEN AT THIS TIME. SET UP FOR PM MEAL. EXPLAINED SAEED ACT. PT UPSET. CALL LIGHT IN REACH.WILL CONTINUE TO MONITOR.
--- NOTE | 2020-03-08 19:30 | NUR ---
awakens easily. no c/o voiced. band saw operator cake cutting shows sinus tach. #20 lt hand saline lock. #22 rt hand ns infusing @ 75cchr. po fluids taken well. saba cath in place. urine clear yellow. covid swab collected. pt VERY uncooperative with swab collection. pt aware of taylor act. sitter @ bedside.
--- NOTE | 2020-03-08 21:30 | NUR ---
face remains edematous. dr talbert notified. he will put orders in computor.
--- NOTE | 2020-03-08 21:55 | NUR ---
benadryl 25mg iv given.
[2020-03-09] VITALS (18 sets, daily range): BP systolic 138–180; BP diastolic 90–110
--- NOTE | 2020-03-09 00:01 | NUR ---
eyes closed. no distress. sitter @ bedside.
--- NOTE | 2020-03-09 02:00 | NUR ---
resting quietly. resp even & unlabored. no apparent distress.
--- NOTE | 2020-03-09 04:40 | NUR ---
bp 180/104. apresoline 10mg ivp given. slight facial edema cont. benadryl 25mg ivp given.
--- NOTE | 2020-03-09 09:00 | NUR ---
PT SEEN RESTING IN THE BED, NO DISTRESS, NO COMPLAINTS. LUNGS CLEAR, DECREASED, RA. PT STATES BM YESTERDAY. NO ACTING OUT, NO ATTEMPTS TO HARM SELF OR OTHERWISE. PT PROVIDED 2 UNITS INSULIN THIS AM PER BS 205.
--- NOTE | 2020-03-09 12:32 | NUR ---
PT CONTINUES TO REST IN THE BED WITHOUT MUCH INTERACTION WITH OTHERS. PT ABLE TO SWALLOW PILLS NORMALLY, THEN RETURNS TO SLEEP. SITTER AT BEDSIDE.
--- NOTE | 2020-03-09 16:00 | NUR ---
PT REMAINS AT REST IN THE BED, NO DISTRESS, NO COMPLAINTS. PT'S MOTHER CALLED VIA TRANSLATION LINE, WAS PROVIDED AN UPDATE. BLOOD PRESSURE REMAINS ELEVATED EVEN AFTER HYDRALAZINE GIVEN, SO IVF TURNED DOWN TO KVO. SITTER REMAINS AT BEDSIDE, PT IS RESTING CALMLY IN THE BED IN NO DISTRESS.
--- NOTE | 2020-03-09 18:45 | NUR ---
REPORT RECEIVED FROM SHASHANK ZEPEDA. CARE ASSUMED.
--- NOTE | 2020-03-09 19:30 | NUR ---
PT RESTING IN BED WITH EYES CLOSED. AROUSES TO VERBAL STIMULI. PT IS ALERT AND ORIENTED X3. SHIFT ASSESSMENT COMPLETED AT THIS TIME. IV PATENT X2. CALL LIGHT IN REACH. SITTER AT BEDSIDE. WILL CONTINUE TO MONITOR.
--- NOTE | 2020-03-09 19:40 | NUR ---
ACCUCHECK IS CRITICAL HIGH. STAT GLUCOSE ORDERED.
--- NOTE | 2020-03-09 20:00 | NUR ---
LAB AT BEDSIDE FOR GLUCOSE
--- NOTE | 2020-03-09 21:00 | NUR ---
DR DOMINGO NOTIFIED OF GLUCOSE 406. NEW ORDERS RECEIVED.
--- NOTE | 2020-03-09 22:04 | NUR ---
PT RESTING IN BED WITH EYES CLOSED. RESP ARE EVEN AND UNLABORED. NO DISTRESS NOTED. CALL LIGHT IN REACH. WILL CONTINUE TO MONITOR.
[2020-03-10] VITALS (7 sets, daily range): BP systolic 145–173; BP diastolic 84–107
--- NOTE | 2020-03-10 00:03 | NUR ---
PT RESTING IN BED WITH EYES CLOSED. RESP ARE EVEN AND UNLABORED. NO DSITRESS NOTED. CALL LIGHT IN REACH. SITTER AT BEDSIDE. WILL CONTINUE TO MONITOR.
--- NOTE | 2020-03-10 02:05 | NUR ---
PT RESTING IN BED WITH EYES CLOSED. RESP ARE EVEN AND UNLABORED. NO DISTRESS NOTED. CALL LIGHT IN REACH. WILL CONTINUE TO MONITOR.
--- NOTE | 2020-03-10 02:07 | NUR ---
PT RESTING IN BED WITH EYES CLOSED. RESP ARE EVEN AND UNLABORED. NO DISTRESS NOTED. CALL LIGHT IN REACH. WILL CONTINUE TO MONITOR.
--- NOTE | 2020-03-10 04:04 | NUR ---
LAB AT BEDSIDE FOR AM LAB DRAWS. PT TOLERATED WELL.
[2020-03-10 05:26] LABS: HEMATOCRIT 28.5 % (37.0-47.0); HEMOGLOBIN 9.2 g/dl (12.0-16.0); MEAN CELL VOLUME 100.4 fL CALC (80.0-100.0); MEAN CORPUSCULAR HGB 32.4 pG CALC (26.0-32.0); MEAN CORPUSCULAR HGB CONC 32.3 g/dL CAL (32.0-36.0); RED BLOOD COUNT 2.84 mill/uL (4.20-5.60); RED CELL DISTRI WIDTH 13.3 % (11.5-15.5)
[2020-03-10 05:57] LABS: ALBUMIN 2.5 g/dL (3.2-5.0); MAGNESIUM 2.1 mg/dL (1.6-2.3); POTASSIUM 4.6 mmol/l (3.5-5.1); TOTAL PROTEIN 5.8 g/dL (6.3-8.2)
--- NOTE | 2020-03-10 06:11 | NUR ---
PT RESTING IN BED WITH EYES CLOSED. AROUSES TO VERBAL STIMULI. RESP EVEN AND UNLABORED. VSS ON MONITOR. SITTER AT BEDSIDE. WILL CONTINUE TO MONITOR.
[2020-03-10 06:19] LABS: BILIRUBIN, TOTAL 0.1 mg/dL (0.0-1.4); CREATININE 2.3 mg/dL (0.5-1.0)
--- NOTE | 2020-03-10 08:58 | NUR ---
PT SEEN AWAKE, ALERT, ORIENTED X 3. LUNGS CLEAR, RA. PT CONTENT TO REST IN THE BED WITH EYES CLOSED MOST OF THE TIME, NO INDICATION OF DISTRESS. SITTER REMAINS AT BEDSIDE.
--- NOTE | 2020-03-10 09:47 | NUR ---
PT SEEN BY DR DOMINGO THIS MORNING. SHE CONTINUES TO INSIST THAT SHE DOES NOT SMOKE K-2 AND WISHES EVERYONE WOULD QUIT THINKING THAT. PT BROUGHT TO TEARS DR DOMINGO EXPLAINED TO HER THAT WE ARE KEEPING HER BEST INTEREST IN MIND AND WANT TO SEE HER BLOOD PRESSURE AND BLOOD SUGARS BETTER CONTROLLED.
[2020-03-10 12:56] LABS: URINE BILIRUBIN - DIPSTICK NEGATIVE (NEGATIVE); URINE BLOOD DIPSTICK TRACE-INTACT (NEGATIVE); URINE COLOR YELLOW; URINE GLUCOSE - DIPSTICK >=1000 mg/dL (NEGATIVE); URINE KETONE NEGATIVE (NEGATIVE); URINE LEUK ESTERASE NEGATIVE (NEGATIVE); URINE NITRITE - DIPSTICK NEGATIVE (Negative); URINE PH 5.5 (4.5-8.0); URINE PROTEIN - DIPSTICK Trace mg/dL (NEG-TRACE); URINE SPECIFIC GRAVITY 1.025; URINE UROBILINOGEN - DIPSTICK 0.2 E.U./dL (0.2)
--- NOTE | 2020-03-10 16:28 | NUR ---
PT SEEN RESTING IN THE BED WITHOUT COMPLAINT, SITTER REMAINS AT BEDSIDE.
--- NOTE | 2020-03-10 19:15 | NUR ---
RECEIVED REPORT. BEDRESTING WITH EYES CLOSED. PSA AT BEDSIDE. B/P WNL. RESP EVEN AND NONLABORED. N/C AT THSI TIME
--- NOTE | 2020-03-10 21:00 | NUR ---
BEDRESTING. TV OFF. QUIET. COVERED CHIN DOWN. FLAT AFFECT
--- NOTE | 2020-03-10 22:03 | NUR ---
BEDRESTING. PSA AT BEDSIDE. RESP EVEN AND NONLABORED. NO REQUESTS. QUIET
[2020-03-11] VITALS (9 sets, daily range): BP systolic 144–176; BP diastolic 87–107
--- NOTE | 2020-03-11 | NUR ---
BEDRESTING. EYES CLOSED. RESP EVEN AND NONLABORED. N/C AT THIS TIME
--- NOTE | 2020-03-11 01:39 | NUR ---
BEDRESTING. NURSING TEACHER AT BEDSIDE. RESP EVEN AND NONLABORED. TOLERATED IV MEDICATION WELL
--- NOTE | 2020-03-11 03:42 | NUR ---
BEDRESTING. EYES CLOSED. N/C VOICED
--- NOTE | 2020-03-11 05:30 | NUR ---
BEDRESTING. PSA AT BEDSIDE. TURNS AND REPOSITIONS IN BED. READILY AWAKENS. TOLERATING IV MEDS RX. N/C VOICED
[2020-03-11 05:49] LABS: HEMATOCRIT 29.3 % (37.0-47.0); HEMOGLOBIN 9.1 g/dl (12.0-16.0); MEAN CELL VOLUME 101.7 fL CALC (80.0-100.0); MEAN CORPUSCULAR HGB 31.6 pG CALC (26.0-32.0); MEAN CORPUSCULAR HGB CONC 31.1 g/dL CAL (32.0-36.0); RED BLOOD COUNT 2.88 mill/uL (4.20-5.60); RED CELL DISTRI WIDTH 13.2 % (11.5-15.5)
[2020-03-11 06:10] LABS: POTASSIUM 3.8 mmol/l (3.5-5.1)
--- NOTE | 2020-03-11 06:45 | NUR ---
REPORT RECEIVED FROM ISREAL ZEPEDA. CARE ASSUMED.
--- NOTE | 2020-03-11 07:30 | NUR ---
PT RESTING IN BED AWAKE. PT IS ALERT AND ORIENTED X3. SHIFT ASSESSMENT COMPLETED AT THIS TIME. IV PATENT X1. PT TEARFUL STATING SHE WANTS TO GO HOME. EXPLAINED SHE IS STILL SAEED ACTED BUT WE COULD DISCUSS OPTIONS WITH MD ON ROUNDS. PT THANKFUL. CALL LIGHT IN REACH. SITTER AT BEDSIDE. WILL OCNTINUE TO MONITOR.
--- NOTE | 2020-03-11 08:05 | NUR ---
DR DOMINGO AT BEDSIDE AT THIS TIME
--- NOTE | 2020-03-11 08:15 | NUR ---
BUCIO REMOVED AT THIS TIME. PT TOLERATED WELL
--- NOTE | 2020-03-11 08:38 | NUR ---
PHONED PT MOTHER AND ASKED HER TO COME VISIT APPROVED BY .
--- NOTE | 2020-03-11 09:45 | NUR ---
MOTHER AT BEDSIDE WITH PATIENT. EXPLAINED PLAN OF CARE AND NEED OF PATIENT TO STAY IN HOSPITAL. MOTHER RECEPTIVE.
--- NOTE | 2020-03-11 10:15 | NUR ---
PT LAYING IN BED VISITING WITH MOTHER. RESP ARE EVEN AND UNLABORED. VSS ON MONITOR. CALL LIGHT IN REACH. WILL CONTINUE TO MONITOR.
--- NOTE | 2020-03-11 11:30 | NUR ---
SET UP FOR NOON MEAL AT THIS TIME AND GUEST TRAY GIVEN FOR MOM WELL
--- NOTE | 2020-03-11 12:58 | NUR ---
DR DOMINGO AND [place] [facility] AT BEDSIDE AT THIS TIME. SANTA AT BEDSIDE TO HELP APPLY PATIENT FOR MEDICAID
[2020-03-11] MEDS ORDERED: NOVOLOG MIX SC (13:04)
[2020-03-11] MEDS ORDERED: CLONIDINE0.1 MG PO (13:04)
[2020-03-11] MEDS ORDERED: MEDDOSEPAK PO (13:04)
[2020-03-11] MEDS ORDERED: LABETALOL200 MG PO (13:04)
--- NOTE | 2020-03-11 13:33 | NUR ---
SCRIPTS FAXED TO [facility] FOR THEM TO BE FILLED AND DELIVERED TO [facility]
--- NOTE | 2020-03-11 13:35 | NUR ---
PT SITTING UP ON SIDE OF BED VISITING WITH MOM. RESP ARE EVEN AND UNLABORED. NO DISTRESS NOTED. CALL LIGHT IN [place]OR. WILL CONTINUE TO MONITOR
--- NOTE | 2020-03-11 15:19 | NUR ---
PT RESTING IN BED VISITING WITH MOTHER. RESP CONTINUE TO BE EVEN AND UNLABORED NO DISTRESS NOTED. CALL LIGHT IN REACH. WILL CONTINUE TO MONITOR.
--- NOTE | 2020-03-11 16:40 | NUR ---
DISCHARGE INSTRUCTIONS REVIEWED WITH PATIENT AND MOTHER. BOTH VERBALIZED UNDERSTANDING. MEDS PROVIDED FROM [facility]. PT PROVIDED SCRUBS TO GO HOME IN WELL. IV DC'D CATH TIP INTACT.
--- NOTE | 2020-03-11 16:55 | NUR ---
Discharge instructions given. Patient verbalizes understanding of same. Discharged in stable condition via Wheelchair to Home with family. All belongings sent with pt.
== END 2020-03-11 16:55 | disposition home or self-care (01) | DRG 305 ==
LOC: ED 18:33 → ED-I 19:54 → ED 19:54 → ED-I 21:28 → ED 23:52 → ICU 23:53 → ED-I 03-08 → ED 03-08 → ICU 03-08 00:01 → ED 03-08 00:50 → ICU 03-11 16:55
PROVIDERS: Emergency Medicine; Internal Medicine; ADMIT Internal Medicine; ATTEND Internal Medicine
DX: I16.0 Hypertensive urgency (principal); N17.9 Acute kidney failure, unspecified; I67.4 Hypertensive encephalopathy; I10 Essential (primary) hypertension; E11.65 Type 2 diabetes mellitus with hyperglycemia; G40.909 Epilepsy, unspecified, not intractable, without status epilepticus; T78.3XXA Angioneurotic edema, initial encounter; T46.4X5A Adverse effect of angiotensin-converting-enzyme inhibitors, initial encounter; T38.0X5A Adverse effect of glucocorticoids and synthetic analogues, initial encounter; F17.200 Nicotine dependence, unspecified, uncomplicated; F12.90 Cannabis use, unspecified, uncomplicated; Z86.73 Personal history of transient ischemic attack (TIA), and cerebral infarction without residual deficits; Z20.828 Contact with and (suspected) exposure to other viral communicable diseases
CPT/HCPCS: J2060

== ENCOUNTER 2020-03-23 09:45 | Inpatient (IN) | payer SELFPAY ==
[~2020-03-23] VITALS: Ht 165.1 cm; Wt 59.5 kg
[2020-03-23] VITALS (22 sets, daily range): BP systolic 122–170; BP diastolic 67–97
[~2020-03-23 09:45] MED LIST changes: +ATORVASTATIN CA20 MG PO; +CLONIDINE0.1 MG PO; +EQ ASPIRIN LOW81 MG PO; +FLUOXETINE20 MG PO; +HYDROXYZ HCL25 MG PO; +LABETALOL HYDR100 MG PO; +LABETALOL200 MG PO; +LISI20TA5 PO; +MEDDOSEPAK PO; +NOVOLOG MIX SC
--- NOTE | 2020-03-23 10:02 | NUR ---
the patient arrived via EMS, combative. She was medicated with Haldol and Ativan.
--- NOTE | 2020-03-23 10:30 | NUR ---
tHE PATIENT IS STILL IN RESTRAINTS, ATTEMPTING TO GET OFF BED AND PULL AT WIRES. REORIENTED
[2020-03-23 10:42] LABS: HEMATOCRIT 29.5 % (37.0-47.0); HEMOGLOBIN 9.8 g/dl (12.0-16.0); IMMATURE GRANULOCYTES 0.4 % (0.0-5.0); MEAN CORPUSCULAR HGB 31.6 pG CALC (26.0-32.0); MEAN CORPUSCULAR HGB CONC 33.2 g/dL CAL (32.0-36.0); NEUT# 14.11 thou/uL (2.00-7.15); RED BLOOD COUNT 3.1 mill/uL (4.20-5.60); RED CELL DISTRI WIDTH 12.5 % (11.5-15.5)
--- NOTE | 2020-03-23 10:45 | NUR ---
sKIN INTACT, NO BREAKDOWN, OR REDNESS NOTED. RESTRAINTS REMAIN ON
--- NOTE | 2020-03-23 10:51 | NUR ---
tHE PATIENT IS STILL TRTING TO GET OFF BED EVEN WITH RESTRAINTS. MEDICATED WITH LABETALOL
[2020-03-23 10:57] LABS: MEAN CELL VOLUME 95.2 fL CALC (80.0-100.0)
--- NOTE | 2020-03-23 11:00 | NUR ---
sKIN INTACT, NO REDNESS, PATIENT DROWSY BUT STILL ATTMPTING TO PULL AT WIRES AND GET OFF BED.
[2020-03-23 11:02] LABS: URINE BILIRUBIN - DIPSTICK NEGATIVE (NEGATIVE); URINE BLOOD DIPSTICK MODERATE (NEGATIVE); URINE COLOR YELLOW; URINE GLUCOSE - DIPSTICK >=1000 mg/dL (NEGATIVE); URINE KETONE NEGATIVE (NEGATIVE); URINE LEUK ESTERASE NEGATIVE (NEGATIVE); URINE NITRITE - DIPSTICK NEGATIVE (Negative); URINE PH 6.5 (4.5-8.0); URINE PROTEIN - DIPSTICK >=300 mg/dL (NEG-TRACE); URINE SPECIFIC GRAVITY 1.015; URINE UROBILINOGEN - DIPSTICK 0.2 E.U./dL (0.2)
[2020-03-23 11:03] LABS: ANION GAP 12 (6-22 (CALC)); BUN 17 mg/dL (7-17); BUN/CREATININE RATIO 12 (12-20 (CALC)); CARBON DIOXIDE 25 mmol/l (22-30); CHLORIDE 96 mmol/l (95-108); CREATININE 1.5 mg/dL (0.5-1.0); ETHYL ALCOHOL 0 mg/dl (0-30); GFR 41 ML/MIN (>=60 (CALC)); GFR FOR AFR.AMER. 50 ML/MIN (>=60 (CALC)); LIPASE 418 u/l (23-300); POTASSIUM 3.3 mmol/l (3.5-5.1); SODIUM 130 mmol/l (137-146); TOTAL PROTEIN 6.9 g/dL (6.3-8.2); URINE EPITHELIAL CELLS MODERATE EPI/hpf (0-FEW)
[2020-03-23 11:10] LABS: ALBUMIN 3.2 g/dL (3.2-5.0); ALKALINE PHOSPHATASE 196 u/l (38-126); BILIRUBIN, TOTAL 0.4 mg/dL (0.0-1.4); SGOT/AST 23 u/l (14-36)
--- NOTE | 2020-03-23 11:11 | NUR ---
RESTRAINED, SKIN INTACT, REORIENTED.
--- NOTE | 2020-03-23 11:30 | NUR ---
SKIN INTACT, REMAINS RESTRAINED DUE TO ATTEMPTING TO PULL WIRES, SHE DOES NOT FOLLOW COMMANDS AND IS COMBATIVE WHEN OUT OF RESTRAINTS.
--- NOTE | 2020-03-23 11:44 | NUR ---
PATINET WAITING TO GO TO XRAY. SKIN INTACT, RESTRAINS REMAIN ON.
--- NOTE | 2020-03-23 12:00 | NUR ---
pATIENT REMOVED FROM RESTRAINTS AND TAKEN TO XRAY.
--- NOTE | 2020-03-23 13:00 | NUR ---
ER DOCTOR INFORMED OF ACCUCHECK READING HIGH. REDRAW ORDERED. THE INSULIN IS TITRATED AT 5 UNITS PER PROTOCOL.
--- NOTE | 2020-03-23 13:04 | NUR ---
SBAR PRINTED TO FLOOR
--- NOTE | 2020-03-23 13:20 | NUR ---
ATTEMPTING IV. PATIENT HAS 2. NEED THREE FOR DRIPS PATIENT IS GETTING.
--- NOTE | 2020-03-23 14:02 | NUR ---
REPORT CALLED TO ICU
--- NOTE | 2020-03-23 14:14 | NUR ---
PT ADMITTED TO ICU BED 8 FROM ED VIA STRETCHER. PT ADMITTED TO UNIT FOR AMS. PT ST ON TELEMETRY, HR 112. PT RESPONDS TO PAINFUL STIMULI, BUT IS NON VERBAL AT THIS TIME, DOES NOT OPEN EYES. TEMP 99.5, 20GLAC/SL, FLUSHED WITHOUT DIFFICULTY. 20G TO LW INFUSING INSULIN GTT @5UNITS/HR, 22G RW INFUSING CARDENE GTT AT 50ML/HR. NO S/S OF INFILTRATION OR INFECTION TO SITES. RESPIRATIONS EVEN/UNLABORED, LS CLEAR THROUGHOUT, SA02 @ 98% RA, ABDOMEN SOFT, BSX4 ACTIVE. SKIN CDI. PT INC OF URINE, ABSORBANT PAD IN PLACE, PERICARE PROVIDED. BS 350.WILL MONITOR, REORIENT NEEDED.
--- NOTE | 2020-03-23 14:40 | NUR ---
NOTIFIED DR. JANSEN OF LABS, NEW ORDERS RECIEVED.
--- NOTE | 2020-03-23 15:34 | NUR ---
PT MOTHER MANDY LUEVANO CALLED WITH [employer] DAT[employer] MANA[employer], UNABLE TO PROVIDE TO IDENTIFIERS AND NOT LISTED IN PT CHART. UNABLE TO GIVE UPDATE. PT MOTHER STATED THIS NURSE WAS "RUDE, DISRESPECTFUL AND DISCRIMANTATORY" HIPPA EXPLAINED TO PT MOTHER.
--- NOTE | 2020-03-23 17:24 | NUR ---
LAB AT BEDSIDE FOR BLOOD DRAW.
--- NOTE | 2020-03-23 18:16 | NUR ---
NOTIFIED DR. JANSEN OF PT RECENT LABS. PT RESTING IN BED WITH EYES CLOSED, NO DISTRESS NOTED AT THIS TIME.
--- NOTE | 2020-03-23 18:31 | NUR ---
PT MOTHER CALLED BACK WITH THE 2 IDENTIFIERS. UPDATE GIVEN WITH [employer] PRODUCTION MAINTENANCE MECHANIC.
[2020-03-23 19:18] LABS: ALBUMIN 2.7 g/dL (3.2-5.0); BILIRUBIN, TOTAL 0.3 mg/dL (0.0-1.4); CREATININE 1.4 mg/dL (0.5-1.0); TOTAL PROTEIN 6.2 g/dL (6.3-8.2)
[2020-03-23 19:21] LABS: POTASSIUM 2.4 mmol/l (3.5-5.1)
--- NOTE | 2020-03-23 19:25 | NUR ---
RECEIVED CALL FROM FIDEL IN LAB. PATIENT K+ RESULTED 2.4. WILL NOTIFY
--- NOTE | 2020-03-23 19:29 | NUR ---
RECEIVED REPORT FROM Natacha JAMISON 156. PATIENT RESTING AT THIS TIME. VS STABLE, CARDINE DRIP INFUSING AT THIS TIME.
--- NOTE | 2020-03-23 19:41 | NUR ---
NOTIFIED DR JANSEN OF PAT CRITICAL K+ LEVEL OF 2.4. NEW ORDERS RECEIVED TO ADMIN 2G OF MAGNESIUM WITH 2 X 20MEQ KRIDERS ONCE MAGNESIUM HAS COMPLETED, CONTINUE WITH 150MLS/HR NS. WILL CONTINUE TO MONITOR.
--- NOTE | 2020-03-23 22:56 | NUR ---
PT CONTINUES SLEEPING, REMAINS LETHARGIC, UNABLE TO PARTICIPATE IN POC. STIRS WHEN REPOSITIONS, TANGLED IN IV LINES. NO OBSERVABLE SIGNS OF DISTRESS OR PAIN NOTED AT THIS TIME.
[2020-03-24] VITALS (11 sets, daily range): BP systolic 147–173; BP diastolic 86–109
--- NOTE | 2020-03-24 06:35 | NUR ---
PTCBG AT 0524 WAS 58. DIRECTOR REGULATORY AGENCY SHOOK PATIENT WHO LIFTED HER HEAD LOOKED AROUND AND MOANED BRIEFLY. 25G IV DEXTROSE GIVEN PER PRN ORDERS, PATIENT WAS RECHECKED 30 MINS LATER. BS WAS 175. PATIENT VS STABLE, CONTINUES TO BE LETHARGIC/SEDATED AND UNABLE TO PARTCIPATE IN POC.
--- NOTE | 2020-03-24 08:30 | NUR ---
PT RESTLESS IN BED. ALERT TO VOICE COMMAND. VITALS STABLE. BED IN LOW POSITION. CALL LIGHT WITHIN REACH. REFUSED BREAKFAST.
[2020-03-24 09:44] LABS: ALBUMIN 2.9 g/dL (3.2-5.0); CREATININE 1.4 mg/dL (0.5-1.0); MAGNESIUM 2.4 mg/dL (1.6-2.3); TOTAL PROTEIN 6.9 g/dL (6.3-8.2)
[2020-03-24 09:45] LABS: BILIRUBIN, TOTAL 0.5 mg/dL (0.0-1.4); POTASSIUM 3.4 mmol/l (3.5-5.1)
--- NOTE | 2020-03-24 10:30 | NUR ---
PT REMAINS RESTLESS IN BED. BOTH IV'S DISLODGED DUE TO PTS REPOSITIONING SELF, RESTLESSNESS AND AGITATION. RECEIVED VERBAL ORDER FROM DR JANSEN TO CHANGE FLUIDS & KCL, SEE ORDER IN CHART.
[2020-03-24 11:37] LABS: HEMATOCRIT 29.4 % (37.0-47.0); HEMOGLOBIN 9.7 g/dl (12.0-16.0); IMMATURE GRANULOCYTES 0.5 % (0.0-5.0); MEAN CELL VOLUME 95.8 fL CALC (80.0-100.0); MEAN CORPUSCULAR HGB 31.6 pG CALC (26.0-32.0); NEUT# 10.48 thou/uL (2.00-7.15); RED BLOOD COUNT 3.07 mill/uL (4.20-5.60)
--- NOTE | 2020-03-24 12:30 | NUR ---
PT UP AMBULATING TO BATHROOM, VOIDED WITHOUT COMPLICATIONS. BP ELEVATED, WILL RESTART CARDENE DRIP ORDERED. CONTINUING TO MONITOR.
--- NOTE | 2020-03-24 14:30 | NUR ---
PT SLEEPING IN BED. IV INFUSING WITHOUT COMPLICATIONS. BP IMPROVED.
--- NOTE | 2020-03-24 18:00 | NUR ---
PT FINISHED DINNER. INSULIN GIVEN AT THIS TIME. BP REMAINS ELEVATED, WILL CONTINUE DRIP ORDERED. BED IN LOW POSITION.
--- NOTE | 2020-03-24 20:40 | NUR ---
PT IN BED SLEEPING, BUT AROUSABLE, PLEASANT AND COOPERATIVE. PATIENT DENIED HAVING PAIN/DISCOMFORT. PT BECAME TEARFUL AND SOBBING, STATING "I JUST WANT TO GO HOME". DISCUSSED POC WITH PATIENT, IV MEDICATIONS AND THE INDICATIONS FOR THEM. PATIENT ACKNOWLEDGED UNDERSTANDING. PT REQUESTED A DRINK, NO OTHER NEEDS AT THIS TIME. BED LOW, CALL LIGHT IN REACH, WILL CONTINUE TO MONITOR.
--- NOTE | 2020-03-24 23:15 | NUR ---
PT SLEEPING, R SIDE LYING POSITION. PATIENT DENIED PAIN/DISCOMFORT, OR BATHROOM NEEDS AT THIS TIME. PT ASKED IF HER CELL PHONE WAS WITH HER BELONGINGS, NO CELL PHONE LOCATED IN PERSONAL ITEMS IN PATIENTS ROOM. BS RESULTED AT 339, AND PT EXHIBITING LOW GRADE TEMP OF 99.3. BREATHING EV/UNL, NO S/S OF DISTRESS NOTED. PATIENT DENIED ADDITIONAL NEEDS AT THIS TIME. BED LOCKED/LOW, CALL LIGHT AND PERSONAL ITEMS IN REACH. WILL CONTINUE TO MONITOR.
[2020-03-25] VITALS (15 sets, daily range): BP systolic 123–163; BP diastolic 76–110
[2020-03-25 05:23] LABS: HEMATOCRIT 29.4 % (37.0-47.0); HEMOGLOBIN 9.4 g/dl (12.0-16.0); IMMATURE GRANULOCYTES 0.4 % (0.0-5.0); MEAN CELL VOLUME 98.3 fL CALC (80.0-100.0); MEAN CORPUSCULAR HGB 31.4 pG CALC (26.0-32.0); NEUT# 8.32 thou/uL (2.00-7.15); RED BLOOD COUNT 2.99 mill/uL (4.20-5.60); RED CELL DISTRI WIDTH 13.3 % (11.5-15.5)
[2020-03-25 05:43] LABS: ALBUMIN 2.6 g/dL (3.2-5.0); CREATININE 1.6 mg/dL (0.5-1.0); POTASSIUM 2.8 mmol/l (3.5-5.1); TOTAL PROTEIN 6.3 g/dL (6.3-8.2)
[2020-03-25 05:44] LABS: BILIRUBIN, TOTAL 0.2 mg/dL (0.0-1.4)
--- NOTE | 2020-03-25 06:26 | NUR ---
DOCK COORDINATOR IN PATIENTS ROOM THIS AM, ASSISTING PATIENT WITH BEDSIDE BATH AND LINEN CHANGE. PATIENT WAS DANGLING AT BEDSIDE DOCK COORDINATOR WAS PUTTING LAST SHEET CORNER ON THE BED, DOCK COORDINATOR HEARD LOUD "THUD", TURNED AND VIEWED PATIENT ON FLOOR SEMI-SITTING/ R LATERAL POSITION, LEANING ON HER RIGHT ELBOW. PATIENT DENIED ANY PAIN OR INJURY. NO VISIBLE INJURY OBSERVED BY THIS RN. PATIENT BECAME TEARFUL AGAIN MYSELF AND TWO OTHER RNS ASSISTED PATIENT UP OFF FLOOR. PATIENT TUCKED INTO BED, AGAIN DENIED INJURY. RESTING QUIETLY AT THIS TIME ON HER LEFT SIDE. BED LOCKED/LOW WITH CALL LIGHT IN REACH.
--- NOTE | 2020-03-25 07:09 | NUR ---
PATIENT IS AAOX3. SHE HAS BEEN STABLE PER REPORT. CARDENE DRIP AND NS DRIP. ACCU CHECK Q 6H. SHE IS COMFORTABLE AT THIS TIME.
--- NOTE | 2020-03-25 08:21 | NUR ---
PATIENT SLEEPING, ENCOURAGED TO EAT BREAKFAST.
--- NOTE | 2020-03-25 08:56 | NUR ---
The patietn did not at her breakfast. she wants to sleep.
--- NOTE | 2020-03-25 09:10 | NUR ---
tHE PATIENTS MOTHER CALLED.
--- NOTE | 2020-03-25 10:17 | NUR ---
CARDENE DRIP DECREASED TO 2 MG/HR. ATTEMPTING TO WEAN PATIENT OFF DRIP PER DR. JANSEN.
--- NOTE | 2020-03-25 12:20 | NUR ---
THE PATIENT ATE 70% OF HIS FOOD.
--- NOTE | 2020-03-25 12:33 | NUR ---
THE PATIENTS MOTHER CALLED BACK AND ASKED WHY THE PATIENT WAS BEING DISCHARGED. I ASKED IF SHE KNEW WHY SHE WAS HERE AND SHE HUNG UP.
--- NOTE | 2020-03-25 13:40 | NUR ---
THE PATIENTS BOYFRIEND CALLED, HE DID NOT HAVE THE CODE. I INSTRUCTED FOR HIM TO CALL THE PATIENTS MOTHER AND HE STS "I DON'T KNOW SIGN LANGUAGE" I ADVISED HIM THAT SHE WILL CALL WHEN ABLE.
--- NOTE | 2020-03-25 14:57 | NUR ---
THE PATIENT IS AGITATED AND CRYING I OFFERED ATIVAN. ATIVAN GIVEN.
--- NOTE | 2020-03-25 16:59 | NUR ---
THE PATIENT IS MORE RELAXED AFTER ATIVAN. GIVEN INSULIN FOR BS OF 310
--- NOTE | 2020-03-25 18:00 | NUR ---
THE PATIENT IS SLEEPING, HER FOOD TRAY IS AT THE BEDSIDE. SHE HAS NOT URINATED TODAY.
--- NOTE | 2020-03-25 19:30 | NUR ---
RESTING IN BED WITH EYES CLOSED. AWAKENS TO NAME. ABLE TO STATE NAME AND BIRTHDATE. PATIENT IS AWARE THAT SHE IS IN THE HOSPITAL, ASKING WHAT DAY IT IS? REORIENTED TO DATE, TIME AND SITUATION. PATIENT IS TEARFUL AND CRYING. PATIENT HAD BEEN INCONTINENT OF LARGE AMOUNT OF URINE IN BED. ASSISTED UP TO CHAIR. PATIENT BATHED SELF, COMPLETE LINEN CHANGE. RESP NON-LABORED. LUNGS CLEAR. SHIFT ASSESSMENT COMPLETED. IV SITE IN LAC, COBAN REMOVED TO ASSESS SITE AND REAPPLIED-SITE HEALTHY, NS WITH 20 KCL INFUSING AT 80 ML/HR. MONITOR SR-ST. DISCUSSED PLAN OF CARE. DENIES NEEDS AT THIS TIME. VSS. CALL ARIAS IN REACH.
--- NOTE | 2020-03-25 20:15 | NUR ---
BACK TO BED. PATIENT HAS EPISODES OF CRYING. EMOTIONAL SUPPORT AND REASSURANCE PROVIDED.
--- NOTE | 2020-03-25 20:31 | NUR ---
ATIVAN 2 MG IVP GIVEN FOR ANXIETY.
--- NOTE | 2020-03-25 21:00 | NUR ---
PATIENT RESTING QUIETLY NOW. SR ON MONITOR.
--- NOTE | 2020-03-25 21:45 | NUR ---
INFORMED DR JANSEN ABOUT PATIENT BP TRENDING UP. NEW ORDERS RECEIVED. PATIENT RESTING CALMLY AND QUIETLY WITH EYES CLOSED.
[2020-03-26] VITALS (7 sets, daily range): BP systolic 152–219; BP diastolic 79–140
--- NOTE | 2020-03-26 | NUR ---
SLEEPING SOUNDLY. RESP NON-LABORED. O2 SAT 97% ON RA. SR ON MONITOR. IV INFUSING WITHOUT INCIDENT.
--- NOTE | 2020-03-26 02:00 | NUR ---
NO CHANGES TO REPORT. SR ON MONITOR. RESP NON-LABORED.
--- NOTE | 2020-03-26 04:00 | NUR ---
SLEEPS SOUNDLY. AWAKENS EASILY TO NAME. CALM AND COOPERATIVE.
--- NOTE | 2020-03-26 06:15 | NUR ---
PATIENT AWAKENS TO NAME. INCONTINENT OF LARGE AMOUNT OF URINE AGAIN. ASSISTED UP TO CHAIR. PATIENT BATHED SELF. LINENS CHANGED. REMAINS SITTING UP IN CHAIR. VSS.
--- NOTE | 2020-03-26 06:45 | NUR ---
REPORT RECIEVED FROM MICHELLE ZEPEDA. CARE ASSUMED.
--- NOTE | 2020-03-26 06:50 | NUR ---
LAB AT BEDSIDE AT THIS TIME.
--- NOTE | 2020-03-26 07:00 | NUR ---
PT SITTING UP IN CHAIR AT BEDSIDE STATING THAT SHE IS LEAVING. EXPLAINED THAT SHE HAS NOT BEEN DISCHARGED AT THIS TIME. PT IS ALERT AND ORIENTED X3. NOTIFIED DR DOMINGO. ASKED PT TO WAIT UNTIL EVALUATED BY PHYSICIAN. PT AGREEABLE. SHIFT ASSESSMENT COMPLETED AT THIS TIME. CALL LIGHT IN REACH. WILL CONTINUE TO MONITOR.
[2020-03-26 07:05] LABS: HEMOGLOBIN 9.5 g/dl (12.0-16.0); IMMATURE GRANULOCYTES 0.2 % (0.0-5.0); MEAN CELL VOLUME 99.7 fL CALC (80.0-100.0); MEAN CORPUSCULAR HGB 31.6 pG CALC (26.0-32.0); MEAN CORPUSCULAR HGB CONC 31.7 g/dL CAL (32.0-36.0); NEUT# 5.72 thou/uL (2.00-7.15); RED BLOOD COUNT 3.01 mill/uL (4.20-5.60); RED CELL DISTRI WIDTH 13.5 % (11.5-15.5)
[2020-03-26 07:36] LABS: ALBUMIN 2.6 g/dL (3.2-5.0); BILIRUBIN, TOTAL 0.2 mg/dL (0.0-1.4); CREATININE 1.6 mg/dL (0.5-1.0); TOTAL PROTEIN 6.3 g/dL (6.3-8.2)
[2020-03-26 07:43] LABS: POTASSIUM 3.7 mmol/l (3.5-5.1)
--- NOTE | 2020-03-26 07:47 | NUR ---
DR DOMINGO AT BEDSIDE.
[2020-03-26] MEDS ORDERED: NORVASC10 M1 PO (07:48)
[2020-03-26] MEDS ORDERED: LABETALOL200 MG PO (07:48)
[2020-03-26] MEDS ORDERED: HYDROXYZ HCL25 MG PO (07:49)
[2020-03-26] MEDS ORDERED: NOVOLIN 70/30 SC (07:49)
[2020-03-26] MEDS ORDERED: CLONIDINE0.1 MG PO (07:49)
[2020-03-26] MEDS ORDERED: FLUOXETINE20 MG PO (07:50)
[2020-03-26] MEDS ORDERED: ASPIRIN ADULT L81 M2 PO (07:50)
--- NOTE | 2020-03-26 07:55 | NUR ---
PT SET UP FOR AM MEAL.
--- NOTE | 2020-03-26 10:10 | NUR ---
DISCHARGE INSTRUCTIONS REVIEWED WITH PATIENT. PATIENT VERBALIZED UNDERSTANDING.
--- NOTE | 2020-03-26 10:25 | NUR ---
Discharge instructions given. Patient verbalizes understanding of same. Discharged in stable condition via Wheelchair to Home with family. All belongings sent with pt.
--- NOTE | 2020-03-26 10:40 | NUR ---
BAG OF CLOTHING FOUND IN ROOM AND DELIVERED DOWNSTAIRS TO MOTHER AND PT.
--- NOTE | 2020-03-26 10:51 | NUR ---
FRONT LOBBY CALLED BACK TO ICU STATING THATPATIENT HAD MONEY AND THAT WE STOLE IT. EXPLAINED THAT ON INTAKE SHEET THERE IS NOT MONEY DOCUMENTED. STRAP MAKING MACHINE OPERATOR NOTIIFED.
--- NOTE | 2020-03-26 14:48 | NUR ---
BOYFRIEND HOLLEY RUSH PHONED YELLING AT STAFF STATING THAT WE STOLE HIS $60. EXPLAINED THAT THERE WAS NO MONEY ON INTAKE SHEET. EXPLAINED THAT ALL BELONGINGS WERE SENT WITH PATIENT.
--- NOTE | 2020-03-26 15:21 | NUR ---
KOREY CALLED WITH SLURRED SPEECH ASKING "WHERE'S MY MONEY". EXPLAINED THAT WE HAD ALREADY EXPLAINED THIS TO HER MOM AND BOYFRIEND THAT THERE IS NO MONEY HERE AND THAT THERE WAS NO MONEY ON INTAKE FORM.
== END 2020-03-26 10:25 | disposition home or self-care (01) | DRG 917 ==
LOC: ED 09:45 → ED-I 13:04 → ED 13:07 → ICU 13:08
PROVIDERS: Nurse Practitioner; ADMIT Internal Medicine; ATTEND Internal Medicine
DX: T40.7X1A Poisoning by cannabis (derivatives), accidental (unintentional), initial encounter (principal); E11.00 Type 2 diabetes mellitus with hyperosmolarity without nonketotic hyperglycemic-hyperosmolar coma (NKHHC); G92 Toxic encephalopathy; I16.1 Hypertensive emergency; F16.129 Hallucinogen abuse with intoxication, unspecified; I10 Essential (primary) hypertension; E87.6 Hypokalemia; E11.65 Type 2 diabetes mellitus with hyperglycemia; G40.909 Epilepsy, unspecified, not intractable, without status epilepticus; F12.10 Cannabis abuse, uncomplicated; F17.200 Nicotine dependence, unspecified, uncomplicated; Z79.4 Long term (current) use of insulin; Z86.73 Personal history of transient ischemic attack (TIA), and cerebral infarction without residual deficits; Z20.828 Contact with and (suspected) exposure to other viral communicable diseases
CPT/HCPCS: J2060; J3475

== ENCOUNTER 2020-04-01 11:04 | Emergency (ER) | payer SELFPAY ==
[~2020-04-01] VITALS: Ht 165.1 cm; Wt 65.0 kg
[~2020-04-01 11:04] MED LIST changes: +ASPIRIN ADULT L81 M2 PO; +NORVASC10 M1 PO; +NOVOLIN 70/30 SC
[2020-04-01 11:22] LABS: HEMATOCRIT 31.1 % (37.0-47.0); HEMOGLOBIN 10.4 g/dl (12.0-16.0); IMMATURE GRANULOCYTES 0.4 % (0.0-5.0); MEAN CORPUSCULAR HGB 31.4 pG CALC (26.0-32.0); MEAN CORPUSCULAR HGB CONC 33.4 g/dL CAL (32.0-36.0); NEUT# 7.24 thou/uL (2.00-7.15); RED BLOOD COUNT 3.31 mill/uL (4.20-5.60); RED CELL DISTRI WIDTH 12.4 % (11.5-15.5)
[2020-04-01 11:39] LABS: CREATININE 1.8 mg/dL (0.5-1.0)
[2020-04-01 11:51] LABS: ALBUMIN 3.5 g/dL (3.2-5.0); BILIRUBIN, TOTAL 0.3 mg/dL (0.0-1.4); POTASSIUM 2.6 mmol/l (3.5-5.1); TOTAL PROTEIN 7.8 g/dL (6.3-8.2)
[2020-04-01 14:20] VITALS: BP 149/93
== END 2020-04-01 14:21 | disposition left against medical advice (07) | DRG 639 ==
LOC: ED 11:04
PROVIDERS: Emergency Medicine
DX: E11.65 Type 2 diabetes mellitus with hyperglycemia (principal); G40.909 Epilepsy, unspecified, not intractable, without status epilepticus; E87.6 Hypokalemia; I10 Essential (primary) hypertension; Z86.73 Personal history of transient ischemic attack (TIA), and cerebral infarction without residual deficits; T42.76XA Underdosing of unspecified antiepileptic and sedative-hypnotic drugs, initial encounter; T46.5X6A Underdosing of other antihypertensive drugs, initial encounter; Z91.128 Patient's intentional underdosing of medication regimen for other reason; Z79.4 Long term (current) use of insulin; Z91.19 Patient's noncompliance with other medical treatment and regimen; Z20.828 Contact with and (suspected) exposure to other viral communicable diseases

== ENCOUNTER 2020-04-05 03:44 | Emergency (ER) | payer SELFPAY ==
[~2020-04-05] VITALS: Ht 165.1 cm; Wt 68.1 kg
[2020-04-05 04:23] LABS: HEMATOCRIT 26.8 % (37.0-47.0); HEMOGLOBIN 9.2 g/dl (12.0-16.0); IMMATURE GRANULOCYTES 0.4 % (0.0-5.0); MEAN CELL VOLUME 92.4 fL CALC (80.0-100.0); MEAN CORPUSCULAR HGB 31.7 pG CALC (26.0-32.0); MEAN CORPUSCULAR HGB CONC 34.3 g/dL CAL (32.0-36.0); NEUT# 8.52 thou/uL (2.00-7.15); RED BLOOD COUNT 2.9 mill/uL (4.20-5.60); RED CELL DISTRI WIDTH 12.5 % (11.5-15.5)
[2020-04-05 04:36] LABS: URINE BILIRUBIN - DIPSTICK NEGATIVE (NEGATIVE); URINE BLOOD DIPSTICK SMALL (NEGATIVE); URINE COLOR YELLOW; URINE GLUCOSE - DIPSTICK >=1000 mg/dL (NEGATIVE); URINE KETONE NEGATIVE (NEGATIVE); URINE NITRITE - DIPSTICK NEGATIVE (Negative); URINE PROTEIN - DIPSTICK >=300 mg/dL (NEG-TRACE); URINE SPECIFIC GRAVITY 1.015; URINE UROBILINOGEN - DIPSTICK 0.2 E.U./dL (0.2)
[2020-04-05 04:38] LABS: URINE LEUK ESTERASE NEGATIVE (NEGATIVE)
[2020-04-05 04:43] LABS: URINE BACTERIA FEW hpf; URINE EPITHELIAL CELLS MODERATE EPI/hpf (0-FEW)
[2020-04-05 04:45] LABS: BILIRUBIN, TOTAL 0.3 mg/dL (0.0-1.4); CREATININE 2.7 mg/dL (0.5-1.0); POTASSIUM 2.6 mmol/l (3.5-5.1)
[2020-04-05 10:43] VITALS: BP 151/82
== END 2020-04-05 10:43 | disposition short-term general hospital (02) | DRG 999 ==
LOC: ED 03:44
PROVIDERS: Emergency Medicine
DX: G40.909 Epilepsy, unspecified, not intractable, without status epilepticus (principal); E11.00 Type 2 diabetes mellitus with hyperosmolarity without nonketotic hyperglycemic-hyperosmolar coma (NKHHC); I16.0 Hypertensive urgency; I10 Essential (primary) hypertension; E87.6 Hypokalemia; Z86.73 Personal history of transient ischemic attack (TIA), and cerebral infarction without residual deficits
CPT/HCPCS: J1953; J2060

== ENCOUNTER 2020-04-20 14:00 | Inpatient (IN) | payer SELFPAY ==
[~2020-04-20] VITALS: Ht 165.1 cm; Wt 60.8 kg
[2020-04-20] VITALS (8 sets, daily range): BP systolic 103–187; BP diastolic 85–150
--- NOTE | 2020-04-20 14:08 | NUR ---
PT BROUGHT TO ER PER EMS. PT ALERT/ORIENTED X3, STATES FEELS BETTER, JUST HASNT TAKEN HER MEDICATION TODAY. SHE JUST WOKE UP SHE STATED
[2020-04-20 14:48] LABS: IMMATURE GRANULOCYTES 0.5 % (0.0-5.0); MEAN CELL VOLUME 91.5 fL CALC (80.0-100.0); MEAN CORPUSCULAR HGB 32.1 pG CALC (26.0-32.0); MEAN CORPUSCULAR HGB CONC 35.1 g/dL CAL (32.0-36.0); NEUT# 9.7 thou/uL (2.00-7.15); RED BLOOD COUNT 4.02 mill/uL (4.20-5.60); RED CELL DISTRI WIDTH 12.3 % (11.5-15.5)
[2020-04-20 14:52] LABS: HEMATOCRIT 36.8 % (37.0-47.0); HEMOGLOBIN 12.9 g/dl (12.0-16.0)
--- NOTE | 2020-04-20 15:00 | NUR ---
RESTING ON STRETCHER WITH EYES CLOSED, AWAKENS WITH VERBAL STIMULI. RESPS EVEN AND UNLABORED ON O2 VIA NC. MONITORS ATTACHED, NO NEEDS VOICED AT THIS TIME.
[2020-04-20 15:04] LABS: ALBUMIN 3.6 g/dL (3.2-5.0); CREATININE 2.3 mg/dL (0.5-1.0); TOTAL PROTEIN 7.9 g/dL (6.3-8.2)
[2020-04-20 15:13] LABS: BILIRUBIN, TOTAL 0.6 mg/dL (0.0-1.4); POTASSIUM 4.1 mmol/l (3.5-5.1)
--- NOTE | 2020-04-20 15:30 | NUR ---
INSULIN DRIP STARTED FOR BLOOD SUGAR 736.
--- NOTE | 2020-04-20 16:32 | NUR ---
REPEAT ACCUCHECK HI, INSULIN DRIP INFUSING WITHOUT DIFFICULTY.
[2020-04-20 16:48] LABS: URINE BILIRUBIN - DIPSTICK NEGATIVE (NEGATIVE); URINE BLOOD DIPSTICK SMALL (NEGATIVE); URINE COLOR YELLOW; URINE GLUCOSE - DIPSTICK >=1000 mg/dL (NEGATIVE); URINE KETONE NEGATIVE (NEGATIVE); URINE LEUK ESTERASE NEGATIVE (NEGATIVE); URINE NITRITE - DIPSTICK NEGATIVE (Negative); URINE PH 6.5 (4.5-8.0); URINE PROTEIN - DIPSTICK >=300 mg/dL (NEG-TRACE); URINE SPECIFIC GRAVITY 1.015; URINE UROBILINOGEN - DIPSTICK 0.2 E.U./dL (0.2)
[2020-04-20 17:02] LABS: URINE SQUAMOUS EPITHELIAL CELL FEW EPI/hpf (0-FEW)
[2020-04-20 17:03] LABS: URINE BACTERIA FEW hpf; URINE TRICHOMONAS FEW hpf
--- NOTE | 2020-04-20 18:07 | NUR ---
REPEAT ACCUCHECK HI
--- NOTE | 2020-04-20 19:08 | NUR ---
REPORT CALLED TO NATASHA ZEPEDA.
--- NOTE | 2020-04-20 19:15 | NUR ---
PT TO ICU VIA STRETCHER.
--- NOTE | 2020-04-20 20:00 | NUR ---
BS 273, INSULIN GTT TO 3 UNITS/HR
[2020-04-20 21:33] LABS: CREATININE 2.2 mg/dL (0.5-1.0)
[2020-04-20 21:34] LABS: POTASSIUM 2.5 mmol/l (3.5-5.1)
--- NOTE | 2020-04-20 21:35 | NUR ---
BS 155, INSULIN GTT TO 2 UNITS/HR
--- NOTE | 2020-04-20 22:07 | NUR ---
DR DOMINGO CALLED, REVIEWED CHEM 7. ORDERS GIVEN.
--- NOTE | 2020-04-20 22:35 | NUR ---
BS 151, INSULIN GTT AT 2 UNITS/HR
--- NOTE | 2020-04-20 23:00 | NUR ---
PT UP TO BSC, ACCIDENTLY PULLED IV OUT OF L ARM.
[2020-04-21] VITALS (12 sets, daily range): BP systolic 126–181; BP diastolic 87–127
--- NOTE | 2020-04-21 01:00 | NUR ---
PT C/O DISCOMFORT TO L ARM FROM KCL INFUSION. NO REDNESS NOTED, INFUSION RATE SLOWED.
--- NOTE | 2020-04-21 05:00 | NUR ---
LAB AT BEDSIDE FOR CHEM 7 DRAW, 1 HR AFTER KCL INFUSED.
[2020-04-21 05:18] LABS: CREATININE 2.2 mg/dL (0.5-1.0)
[2020-04-21 05:23] LABS: POTASSIUM 3.7 mmol/l (3.5-5.1)
--- NOTE | 2020-04-21 08:44 | NUR ---
PT REPORT RECEIVED AND PT RESTING QUIETLY ON STRETCHER, VITAL SIGNS STABLE
--- NOTE | 2020-04-21 09:30 | NUR ---
Dr Monk present at bedside to assess pt and discuss plan of care
--- NOTE | 2020-04-21 09:37 | NUR ---
s/o Dago called per teletypewriter installer as per MD request; phone passed to Dr Momin
--- NOTE | 2020-04-21 09:51 | NUR ---
consent for release of medical records obtained; consent faxed to [facility] [phone]
--- NOTE | 2020-04-21 10:38 | NUR ---
PT SLEEPING AT THIS TIME, IS TALKING ABOUT WANTING TO GO HOME TODAY BUT DOESNT WANT TO SIGN AMA PAPERS AT THIS TIME, STATES SHE WILL WAIT AND SEE HOW SHE FEELS AFTER LUNCH. STILL WAITING FOR MEDICAL RECORDS FROM [place].
--- NOTE | 2020-04-21 11:37 | NUR ---
WHEN TALKING TO PT ABOUT BLOOD PRESSURE AND INSULIN MEDICATIONS, SHE STATED SHE DIDNT HAVE MONEY TO PAY FOR MEDICATIONS AND HAS RAN OUT, ALSO STATED SHE WOULD TAKE THE SC INSULIN , AND EAT HER DINNER AND THEN WANTS TO GO HOME
--- NOTE | 2020-04-21 11:50 | NUR ---
pt awake in bed; no apparent distress noted; pt becomes very emotional at times; pt expresses wises to leave AMA; pt able to states name, date of , location, current president; pt alert and oriented; possible deterioration in condition, even ; pt continues to expresses wishes to leave AMA; will continue to monitor
--- NOTE | 2020-04-21 12:40 | NUR ---
PT RESTING QUIETLY AT THIS TIME, WATCHING TV,
[2020-04-21] MEDS ORDERED: APRESOLINE25 MG/TAB PO (13:30)
[2020-04-21] MEDS ORDERED: MAXZIDE-2537.5 MG/TA PO (13:33)
[2020-04-21] MEDS ORDERED: METOPROL TAR100 MG PO (13:33)
[2020-04-21] MEDS ORDERED: PHENYTOIN EX100 M1 PO (13:34)
[2020-04-21] MEDS ORDERED: NIFEDIPINE ER30 M1 PO (13:35)
--- NOTE | 2020-04-21 14:50 | NUR ---
PTS BLOOD PRESSURE BOUNCING HIGH IN THE 200/125, SPOKE TO PT ABOUT GIVING MORE HTN MEDICATIONS. PT IS CRYING, STATES WANTS TO GO HOME, BUT DOESNT KNOW IF SHE SHOULD STAY. STATES HER BOYFRIEND WANTS HER TO STAY.
--- NOTE | 2020-04-21 14:52 | NUR ---
pt states she "want to leave"; elevated bp explained and potential for another stroke, deterioration in condition and even ; pt to be medicated with prn bp meds; pt agree to stay at this time; pharmacy called to obtained home meds if pt leaves AMA
--- NOTE | 2020-04-21 17:39 | NUR ---
PT SITTING UP ON BED EATING DINNER MEAL. VITAL SIGNS STABLE. PT LAUGHING AND TALKING WITH STAFF.
--- NOTE | 2020-04-21 18:05 | NUR ---
pt noted on cell phone yelling; pt stating she wants to leave; demanding a ride; relaxation methods attempted; will continue to monitor
--- NOTE | 2020-04-21 18:20 | NUR ---
pt manager division light demanding to leave; AMA form signed; #22 removed from lfa with catheter tip intact; this administrative underwriter and Brittany eBnton RN SUP present at bedside to explained the risk of leaving AMA; possible worsening in condition/ explained in great detail; pt admits to understanding; pt is alert and oriented; able to anwser all questions; boyfriend Dago downstairs waiting; pt discharged from unit;
--- NOTE | 2020-04-21 18:32 | NUR ---
Dr Monk notified pt has left AMA
== END 2020-04-21 18:32 | disposition left against medical advice (07) | DRG 638 ==
LOC: ED 14:00 → ED-I 17:00 → ED 17:03 → ICU 17:04
PROVIDERS: Student in an Organized Health Care Education/Training Program; ADMIT Internal Medicine; ATTEND Internal Medicine
DX: E11.10 Type 2 diabetes mellitus with ketoacidosis without coma (principal); I16.1 Hypertensive emergency; I10 Essential (primary) hypertension; T38.3X6A Underdosing of insulin and oral hypoglycemic [antidiabetic] drugs, initial encounter; Z91.128 Patient's intentional underdosing of medication regimen for other reason; Z86.73 Personal history of transient ischemic attack (TIA), and cerebral infarction without residual deficits; Z20.828 Contact with and (suspected) exposure to other viral communicable diseases
CPT/HCPCS: J1953

== ENCOUNTER 2020-05-15 02:18 | Emergency (ER) | payer SELFPAY ==
[~2020-05-15] VITALS: Ht 165.1 cm; Wt 65.0 kg
[~2020-05-15 02:18] MED LIST changes: +APRESOLINE25 MG/TAB PO; +MAXZIDE-2537.5 MG/TA PO; +METOPROL TAR100 MG PO; +NIFEDIPINE ER30 M1 PO; +PHENYTOIN EX100 M1 PO
[2020-05-15 02:43] LABS: HEMATOCRIT 35.1 % (37.0-47.0); HEMOGLOBIN 11.8 g/dl (12.0-16.0); IMMATURE GRANULOCYTES 0.1 % (0.0-5.0); MEAN CELL VOLUME 94.1 fL CALC (80.0-100.0); MEAN CORPUSCULAR HGB 31.6 pG CALC (26.0-32.0); MEAN CORPUSCULAR HGB CONC 33.6 g/dL CAL (32.0-36.0); NEUT# 6.24 thou/uL (2.00-7.15); RED BLOOD COUNT 3.73 mill/uL (4.20-5.60); RED CELL DISTRI WIDTH 12.4 % (11.5-15.5)
[2020-05-15 02:59] LABS: AMYLASE 89 u/l (30-110); LIPASE 326 u/l (23-300)
[2020-05-15 03:15] LABS: ALBUMIN 3.3 g/dL (3.2-5.0); BILIRUBIN, TOTAL 0.5 mg/dL (0.0-1.4); CREATININE 2.3 mg/dL (0.5-1.0); POTASSIUM 3.9 mmol/l (3.5-5.1); TOTAL PROTEIN 7.4 g/dL (6.3-8.2)
[2020-05-15 03:36] LABS: URINE BILIRUBIN - DIPSTICK NEGATIVE (NEGATIVE); URINE BLOOD DIPSTICK MODERATE (NEGATIVE); URINE COLOR YELLOW; URINE GLUCOSE - DIPSTICK >=1000 mg/dL (NEGATIVE); URINE KETONE NEGATIVE (NEGATIVE); URINE LEUK ESTERASE NEGATIVE (NEGATIVE); URINE NITRITE - DIPSTICK NEGATIVE (Negative); URINE PROTEIN - DIPSTICK >=300 mg/dL (NEG-TRACE); URINE UROBILINOGEN - DIPSTICK 0.2 E.U./dL (0.2)
[2020-05-15 03:40] LABS: URINE BACTERIA FEW hpf; URINE SQUAMOUS EPITHELIAL CELL FEW EPI/hpf (0-FEW); URINE WBC 0-2 WBC/hpf (0-5)
[2020-05-15 05:50] VITALS: BP 139/97
== END 2020-05-15 06:15 | disposition short-term general hospital (02) | DRG 66 ==
LOC: ED 02:18
PROVIDERS: Emergency Medicine
PROC: 0T9B70Z Drainage of Bladder with Drainage Device, Via Natural or Artificial Opening (ICD-10-PCS; principal; 2020-05-15)
DX: I63.9 Cerebral infarction, unspecified (principal); G40.909 Epilepsy, unspecified, not intractable, without status epilepticus; E11.65 Type 2 diabetes mellitus with hyperglycemia; I10 Essential (primary) hypertension; F17.200 Nicotine dependence, unspecified, uncomplicated; Z86.73 Personal history of transient ischemic attack (TIA), and cerebral infarction without residual deficits; Z91.19 Patient's noncompliance with other medical treatment and regimen; Z20.828 Contact with and (suspected) exposure to other viral communicable diseases
CPT/HCPCS: J2060

== ENCOUNTER 2020-07-05 08:15 | Emergency (ER) | payer SELFPAY ==
[~2020-07-05] VITALS: Ht 165.1 cm; Wt 70.0 kg
[2020-07-05] MEDS ORDERED: CLONIDINE0.1 MG PO (08:39)
[2020-07-05] MEDS ORDERED: PLAVIX75 MG PO (08:40)
[2020-07-05] MEDS ORDERED: LAMICTAL25 M2 PO (08:41)
[2020-07-05] MEDS ORDERED: ATORVASTATIN CA40 MG PO (08:41)
[2020-07-05] MEDS ORDERED: FLUOXETINE10 M2 PO (08:42)
[2020-07-05] MEDS ORDERED: ASPIRIN LOW DOS81 M1 PO (08:43)
[2020-07-05] MEDS ORDERED: TORADOL PO (11:00)
[2020-07-05 11:09] VITALS: BP 186/108
== END 2020-07-05 11:09 | disposition home or self-care (01) | DRG 556 ==
LOC: ED 08:15
DX: M79.652 Pain in left thigh (principal); I10 Essential (primary) hypertension; E11.9 Type 2 diabetes mellitus without complications; Z86.73 Personal history of transient ischemic attack (TIA), and cerebral infarction without residual deficits; G40.909 Epilepsy, unspecified, not intractable, without status epilepticus; F17.290 Nicotine dependence, other tobacco product, uncomplicated

== ENCOUNTER 2020-07-14 09:28 | Emergency (ER) | payer SELFPAY ==
[~2020-07-14] VITALS: Ht 165.1 cm; Wt 64.0 kg
[~2020-07-14 09:28] MED LIST changes: +ASPIRIN LOW DOS81 M1 PO; +ATORVASTATIN CA40 MG PO; +FLUOXETINE10 M2 PO; +LAMICTAL25 M2 PO; +PLAVIX75 MG PO
[2020-07-14] MEDS ORDERED: IBUPROFEN600 MG PO (10:02)
[2020-07-14 10:31] VITALS: BP 180/85
== END 2020-07-14 10:49 | disposition home or self-care (01) | DRG 556 ==
LOC: ED 09:28
DX: M79.652 Pain in left thigh (principal); G40.909 Epilepsy, unspecified, not intractable, without status epilepticus; I10 Essential (primary) hypertension; E11.9 Type 2 diabetes mellitus without complications; F17.210 Nicotine dependence, cigarettes, uncomplicated; Z86.73 Personal history of transient ischemic attack (TIA), and cerebral infarction without residual deficits

== ENCOUNTER 2020-07-29 21:46 | Emergency (ER) | payer SELFPAY ==
[~2020-07-29] VITALS: Ht 165.1 cm; Wt 70.0 kg
[~2020-07-29 21:46] MED LIST changes: +IBUPROFEN600 MG PO
[2020-07-29 23:30] LABS: HEMATOCRIT 31.7 % (37.0-47.0); HEMOGLOBIN 10.2 g/dl (12.0-16.0); IMMATURE GRANULOCYTES 0.3 % (0.0-5.0); MEAN CELL VOLUME 96.9 fL CALC (80.0-100.0); MEAN CORPUSCULAR HGB 31.2 pG CALC (26.0-32.0); MEAN CORPUSCULAR HGB CONC 32.2 g/dL CAL (32.0-36.0); NEUT# 10.68 thou/uL (2.00-7.15); RED BLOOD COUNT 3.27 mill/uL (4.20-5.60); RED CELL DISTRI WIDTH 13.8 % (11.5-15.5)
[2020-07-30 00:28] LABS: ALBUMIN 3.5 g/dL (3.2-5.0); BILIRUBIN, TOTAL 0.3 mg/dL (0.0-1.4); TOTAL PROTEIN 7.7 g/dL (6.3-8.2)
[2020-07-30 00:30] LABS: CREATININE 4.5 mg/dL (0.5-1.0); POTASSIUM 4.8 mmol/l (3.5-5.1)
[2020-07-30] MEDS ORDERED: LORTAB 1010 MG PO (00:44)
[2020-07-30 01:20] VITALS: BP 124/77
== END 2020-07-30 01:20 | disposition home or self-care (01) | DRG 556 ==
LOC: ED 21:46
PROVIDERS: Emergency Medicine
DX: M79.10 Myalgia, unspecified site (principal); G40.909 Epilepsy, unspecified, not intractable, without status epilepticus; I10 Essential (primary) hypertension; E11.9 Type 2 diabetes mellitus without complications; F17.210 Nicotine dependence, cigarettes, uncomplicated; Z86.73 Personal history of transient ischemic attack (TIA), and cerebral infarction without residual deficits

== ENCOUNTER 2020-08-02 00:22 | Inpatient (IN) | payer SELFPAY ==
[2020-08-02] VITALS (13 sets, daily range): BP systolic 144–181; BP diastolic 87–112
[~2020-08-02] VITALS: Ht 165.1 cm; Wt 64.0 kg
[~2020-08-02 00:22] MED LIST changes: +LORTAB 1010 MG PO
[2020-08-02 01:48] LABS: HEMATOCRIT 29.7 % (37.0-47.0); HEMOGLOBIN 9.6 g/dl (12.0-16.0); IMMATURE GRANULOCYTES 0.6 % (0.0-5.0); MEAN CELL VOLUME 94.9 fL CALC (80.0-100.0); MEAN CORPUSCULAR HGB 30.7 pG CALC (26.0-32.0); MEAN CORPUSCULAR HGB CONC 32.3 g/dL CAL (32.0-36.0); NEUT# 11.04 thou/uL (2.00-7.15); RED BLOOD COUNT 3.13 mill/uL (4.20-5.60); RED CELL DISTRI WIDTH 13.4 % (11.5-15.5)
[2020-08-02 02:17] LABS: ALBUMIN 3.7 g/dL (3.2-5.0); BILIRUBIN, TOTAL 0.4 mg/dL (0.0-1.4); CREATININE 4.7 mg/dL (0.5-1.0); POTASSIUM 4.3 mmol/l (3.5-5.1); TOTAL PROTEIN 8.8 g/dL (6.3-8.2)
[2020-08-02] MEDS ORDERED: NOVOLIN 70/30 SC (08:12)
[2020-08-02 08:39] LABS: CREATININE 4.7 mg/dL (0.5-1.0); POTASSIUM 3.9 mmol/l (3.5-5.1)
[2020-08-03] VITALS (16 sets, daily range): BP systolic 140–220; BP diastolic 75–117
[2020-08-03 07:32] LABS: CREATININE 4.3 mg/dL (0.5-1.0); POTASSIUM 4.4 mmol/l (3.5-5.1)
[2020-08-04] VITALS (16 sets, daily range): BP systolic 134–191; BP diastolic 69–122
[2020-08-04 04:51] LABS: HEMATOCRIT 26.9 % (37.0-47.0); HEMOGLOBIN 8.5 g/dl (12.0-16.0); MEAN CELL VOLUME 97.1 fL CALC (80.0-100.0); MEAN CORPUSCULAR HGB 30.7 pG CALC (26.0-32.0); MEAN CORPUSCULAR HGB CONC 31.6 g/dL CAL (32.0-36.0); RED BLOOD COUNT 2.77 mill/uL (4.20-5.60)
[2020-08-04 05:14] LABS: ALBUMIN 3.1 g/dL (3.2-5.0); CREATININE 3.5 mg/dL (0.5-1.0); POTASSIUM 4.9 mmol/l (3.5-5.1)
[2020-08-05] VITALS (11 sets, daily range): BP systolic 144–189; BP diastolic 77–110
[2020-08-05 05:53] LABS: ALBUMIN 2.7 g/dL (3.2-5.0); CREATININE 3.3 mg/dL (0.5-1.0); POTASSIUM 4.6 mmol/l (3.5-5.1)
[2020-08-06] VITALS (8 sets, daily range): BP systolic 141–194; BP diastolic 84–102
[2020-08-06 05:14] LABS: HEMATOCRIT 23.3 % (37.0-47.0); HEMOGLOBIN 7.4 g/dl (12.0-16.0); MEAN CELL VOLUME 97.5 fL CALC (80.0-100.0); MEAN CORPUSCULAR HGB CONC 31.8 g/dL CAL (32.0-36.0); RED BLOOD COUNT 2.39 mill/uL (4.20-5.60); RED CELL DISTRI WIDTH 13.9 % (11.5-15.5)
[2020-08-06 05:36] LABS: CREATININE 3.4 mg/dL (0.5-1.0); POTASSIUM 4.8 mmol/l (3.5-5.1)
[2020-08-07] VITALS: BP 167/87
[2020-08-07 05:29] VITALS: BP 175/103
[2020-08-07 06:14] LABS: HEMATOCRIT 23.8 % (37.0-47.0); HEMOGLOBIN 7.5 g/dl (12.0-16.0); MEAN CELL VOLUME 97.1 fL CALC (80.0-100.0); MEAN CORPUSCULAR HGB 30.6 pG CALC (26.0-32.0); MEAN CORPUSCULAR HGB CONC 31.5 g/dL CAL (32.0-36.0); RED BLOOD COUNT 2.45 mill/uL (4.20-5.60); RED CELL DISTRI WIDTH 13.8 % (11.5-15.5)
[2020-08-07 06:28] LABS: URINE BILIRUBIN - DIPSTICK NEGATIVE (NEGATIVE); URINE BLOOD DIPSTICK NEGATIVE (NEGATIVE); URINE COLOR YELLOW; URINE GLUCOSE - DIPSTICK 250 mg/dL (NEGATIVE); URINE KETONE NEGATIVE (NEGATIVE); URINE LEUK ESTERASE NEGATIVE (NEGATIVE); URINE NITRITE - DIPSTICK NEGATIVE (Negative); URINE PROTEIN - DIPSTICK >=300 mg/dL (NEG-TRACE); URINE UROBILINOGEN - DIPSTICK 0.2 E.U./dL (0.2)
[2020-08-07 06:32] LABS: CREATININE 3.5 mg/dL (0.5-1.0); MAGNESIUM 2.4 mg/dL (1.6-2.3); POTASSIUM 4.8 mmol/l (3.5-5.1)
[2020-08-07 06:38] VITALS: BP 139/84
[2020-08-07 06:39] LABS: URINE BACTERIA FEW hpf; URINE MUCUS FEW hpf (NONE-FEW); URINE SQUAMOUS EPITHELIAL CELL MANY EPI/hpf (0-FEW)
[2020-08-07 07:43] VITALS: BP 137/84
[2020-08-07 11:17] VITALS: BP 156/94
[2020-08-07] MEDS ORDERED: KEFLEX500 MG PO (13:58)
[2020-08-07] MEDS ORDERED: DOXYCYCL HYC100 MG PO (14:02)
[2020-08-07] MEDS ORDERED: MEDDOSEPAK PO (14:02)
[2020-08-07] MEDS ORDERED: PHOSLO667 MG PO (14:05)
[2020-08-07] MEDS ORDERED: ZOFRAN4 MG/TAB PO (14:07)
[2020-08-07] MEDS ORDERED: LABETALOL HYDR100 MG PO (14:08)
[2020-08-07] MEDS ORDERED: APRESOLINE25 MG/TAB PO (14:08)
[2020-08-07] MEDS ORDERED: LORTAB 1010 MG PO (14:10)
[2020-08-07 15:10] VITALS: BP 155/93
== END 2020-08-07 16:26 | disposition home or self-care (01) | DRG 602 ==
LOC: ED 00:22 → ED-I 03:27 → ED 03:42 → ICU 03:43 → MS2 08-05 13:15
PROVIDERS: Family Medicine; Nurse Practitioner; ADMIT Internal Medicine; ATTEND Internal Medicine
PROC: 0S9D3ZX Drainage of Left Knee Joint, Percutaneous Approach, Diagnostic (ICD-10-PCS; principal; 2020-08-02)
DX: L03.116 Cellulitis of left lower limb (principal); E11.00 Type 2 diabetes mellitus with hyperosmolarity without nonketotic hyperglycemic-hyperosmolar coma (NKHHC); N17.9 Acute kidney failure, unspecified; E87.2 Acidosis; M10.062 Idiopathic gout, left knee; I16.0 Hypertensive urgency; E86.0 Dehydration; E11.65 Type 2 diabetes mellitus with hyperglycemia; I12.9 Hypertensive chronic kidney disease with stage 1 through stage 4 chronic kidney disease, or unspecified chronic kidney disease; E11.22 Type 2 diabetes mellitus with diabetic chronic kidney disease; N18.30 Chronic kidney disease, stage 3 unspecified; D63.1 Anemia in chronic kidney disease; M17.12 Unilateral primary osteoarthritis, left knee; M25.462 Effusion, left knee; F17.200 Nicotine dependence, unspecified, uncomplicated; T50.2X5A Adverse effect of carbonic-anhydrase inhibitors, benzothiadiazides and other diuretics, initial encounter; T38.3X6A Underdosing of insulin and oral hypoglycemic [antidiabetic] drugs, initial encounter; Z91.128 Patient's intentional underdosing of medication regimen for other reason; Z79.4 Long term (current) use of insulin; Z79.02 Long term (current) use of antithrombotics/antiplatelets; Z79.82 Long term (current) use of aspirin; Z86.73 Personal history of transient ischemic attack (TIA), and cerebral infarction without residual deficits; Z20.822 Contact with and (suspected) exposure to COVID-19
CPT/HCPCS: J0878; J1650; Q5106 EC

== ENCOUNTER 2020-08-16 03:55 | Emergency (ER) | payer OTHER ==
[~2020-08-16] VITALS: Ht 165.1 cm; Wt 63.0 kg
[~2020-08-16 03:55] MED LIST changes: +DOXYCYCL HYC100 MG PO; +KEFLEX500 MG PO; +PHOSLO667 MG PO; +ZOFRAN4 MG/TAB PO
[2020-08-16 06:20] LABS: HEMATOCRIT 22.6 % (37.0-47.0); HEMOGLOBIN 7.2 g/dl (12.0-16.0); IMMATURE GRANULOCYTES 0.8 % (0.0-5.0); MEAN CELL VOLUME 99.1 fL CALC (80.0-100.0); MEAN CORPUSCULAR HGB 31.6 pG CALC (26.0-32.0); MEAN CORPUSCULAR HGB CONC 31.9 g/dL CAL (32.0-36.0); NEUT# 18.69 thou/uL (2.00-7.15); RED BLOOD COUNT 2.28 mill/uL (4.20-5.60); RED CELL DISTRI WIDTH 14.9 % (11.5-15.5)
[2020-08-16 06:38] LABS: BILIRUBIN, TOTAL 0.3 mg/dL (0.0-1.4); CREATININE 3.7 mg/dL (0.5-1.0); POTASSIUM 3.9 mmol/l (3.5-5.1)
[2020-08-16] MEDS ORDERED: DOXYCYCL HYC100 MG PO (06:52)
[2020-08-16] MEDS ORDERED: LORTAB5 PO (06:52)
[2020-08-16] MEDS ORDERED: KEFLEX500 MG PO (06:52)
[2020-08-16 07:01] VITALS: BP 186/111
== END 2020-08-16 07:17 | disposition home or self-care (01) ==
LOC: ED 03:55
PROVIDERS: Family Medicine
DX: M25.562 Pain in left knee (principal); L03.116 Cellulitis of left lower limb; N17.9 Acute kidney failure, unspecified; M79.10 Myalgia, unspecified site; I12.9 Hypertensive chronic kidney disease with stage 1 through stage 4 chronic kidney disease, or unspecified chronic kidney disease; E11.22 Type 2 diabetes mellitus with diabetic chronic kidney disease; N18.9 Chronic kidney disease, unspecified; G40.909 Epilepsy, unspecified, not intractable, without status epilepticus; T36.96XA Underdosing of unspecified systemic antibiotic, initial encounter; T38.0X6A Underdosing of glucocorticoids and synthetic analogues, initial encounter; F17.200 Nicotine dependence, unspecified, uncomplicated; Z79.4 Long term (current) use of insulin; Z86.73 Personal history of transient ischemic attack (TIA), and cerebral infarction without residual deficits; Z91.128 Patient's intentional underdosing of medication regimen for other reason

== ENCOUNTER 2020-08-22 10:08 | Emergency (ER) | payer OTHER ==
[~2020-08-22] VITALS: Ht 165.1 cm; Wt 63.6 kg
[~2020-08-22 10:08] MED LIST changes: +LORTAB5 PO
[2020-08-22 12:25] LABS: HEMOGLOBIN 7.4 g/dl (12.0-16.0); IMMATURE GRANULOCYTES 0.5 % (0.0-5.0); MEAN CELL VOLUME 99.6 fL CALC (80.0-100.0); MEAN CORPUSCULAR HGB 30.7 pG CALC (26.0-32.0); MEAN CORPUSCULAR HGB CONC 30.8 g/dL CAL (32.0-36.0); NEUT# 13.57 thou/uL (2.00-7.15); RED BLOOD COUNT 2.41 mill/uL (4.20-5.60); RED CELL DISTRI WIDTH 14.8 % (11.5-15.5)
[2020-08-22 12:55] LABS: POTASSIUM 4.5 mmol/l (3.5-5.1)
[2020-08-22] MEDS ORDERED: HYDROCO/APAP1 TA9 PO (14:10)
[2020-08-22] MEDS ORDERED: OMNI-PAC300 MG PO (14:10)
[2020-08-22 17:29] VITALS: BP 146/78
== END 2020-08-22 15:30 | disposition home or self-care (01) ==
LOC: ED 10:08
PROVIDERS: Family Medicine
DX: L03.116 Cellulitis of left lower limb (principal); I10 Essential (primary) hypertension; E11.9 Type 2 diabetes mellitus without complications; G40.909 Epilepsy, unspecified, not intractable, without status epilepticus; F17.200 Nicotine dependence, unspecified, uncomplicated; Z86.73 Personal history of transient ischemic attack (TIA), and cerebral infarction without residual deficits; Z79.4 Long term (current) use of insulin

== ENCOUNTER 2020-09-30 02:56 | Emergency (ER) | payer OTHER ==
[~2020-09-30] VITALS: Ht 165.1 cm; Wt 63.0 kg
[~2020-09-30 02:56] MED LIST changes: +HYDROCO/APAP1 TA9 PO; +OMNI-PAC300 MG PO
[2020-09-30 03:32] LABS: IMMATURE GRANULOCYTES 0.4 % (0.0-5.0); MEAN CORPUSCULAR HGB 30.4 pG CALC (26.0-32.0); MEAN CORPUSCULAR HGB CONC 32.4 g/dL CAL (32.0-36.0); NEUT# 15.32 thou/uL (2.00-7.15); RED BLOOD COUNT 3.92 mill/uL (4.20-5.60); RED CELL DISTRI WIDTH 16.5 % (11.5-15.5)
[2020-09-30 03:38] LABS: HEMATOCRIT 36.7 % (37.0-47.0); HEMOGLOBIN 11.9 g/dl (12.0-16.0); MEAN CELL VOLUME 93.6 fL CALC (80.0-100.0)
[2020-09-30 03:50] LABS: ALBUMIN 3.5 g/dL (3.2-5.0); CREATININE 3.7 mg/dL (0.5-1.0); POTASSIUM 3.9 mmol/l (3.5-5.1); TOTAL PROTEIN 7.8 g/dL (6.3-8.2)
[2020-09-30 04:00] LABS: BILIRUBIN, TOTAL 0.7 mg/dL (0.0-1.4)
[2020-09-30 04:17] LABS: URINE BILIRUBIN - DIPSTICK NEGATIVE (NEGATIVE); URINE BLOOD DIPSTICK MODERATE (NEGATIVE); URINE COLOR YELLOW; URINE GLUCOSE - DIPSTICK >=1000 mg/dL (NEGATIVE); URINE KETONE NEGATIVE (NEGATIVE); URINE LEUK ESTERASE NEGATIVE (NEGATIVE); URINE NITRITE - DIPSTICK NEGATIVE (Negative); URINE PROTEIN - DIPSTICK >=300 mg/dL (NEG-TRACE); URINE SPECIFIC GRAVITY 1.015; URINE UROBILINOGEN - DIPSTICK 0.2 E.U./dL (0.2)
[2020-09-30 04:26] LABS: URINE SQUAMOUS EPITHELIAL CELL FEW EPI/hpf (0-FEW); URINE WBC 0-2 WBC/hpf (0-5)
[2020-09-30 07:08] VITALS: BP 160/97
== END 2020-09-30 07:08 | disposition short-term general hospital (02) ==
LOC: ED 02:56
PROVIDERS: Emergency Medicine
DX: I63.89 Other cerebral infarction (principal); I61.5 Nontraumatic intracerebral hemorrhage, intraventricular; R29.707 NIHSS score 7; G91.9 Hydrocephalus, unspecified; E11.9 Type 2 diabetes mellitus without complications; G40.909 Epilepsy, unspecified, not intractable, without status epilepticus; I10 Essential (primary) hypertension; F17.200 Nicotine dependence, unspecified, uncomplicated; Z86.73 Personal history of transient ischemic attack (TIA), and cerebral infarction without residual deficits; Z79.84 Long term (current) use of oral hypoglycemic drugs; Z20.822 Contact with and (suspected) exposure to COVID-19
CPT/HCPCS: J2060

== ENCOUNTER 2020-10-25 | Emergency (ER) | payer OTHER ==
[2020-10-25 08:20] LABS: HEMATOCRIT 34.4 % (37.0-47.0); HEMOGLOBIN 10.4 g/dl (12.0-16.0); IMMATURE GRANULOCYTES 0.3 % (0.0-5.0); MEAN CORPUSCULAR HGB 31.1 pG CALC (26.0-32.0); MEAN CORPUSCULAR HGB CONC 30.2 g/dL CAL (32.0-36.0); NEUT# 7.89 thou/uL (2.00-7.15); RED BLOOD COUNT 3.34 mill/uL (4.20-5.60); RED CELL DISTRI WIDTH 16.9 % (11.5-15.5)
[2020-10-25 08:21] LABS: URINE BILIRUBIN - DIPSTICK NEGATIVE (NEGATIVE); URINE BLOOD DIPSTICK TRACE-LYSED (NEGATIVE); URINE COLOR YELLOW; URINE GLUCOSE - DIPSTICK NEGATIVE (NEGATIVE); URINE KETONE NEGATIVE (NEGATIVE); URINE LEUK ESTERASE NEGATIVE (NEGATIVE); URINE PROTEIN - DIPSTICK >=300 mg/dL (NEG-TRACE); URINE UROBILINOGEN - DIPSTICK 0.2 E.U./dL (0.2)
[2020-10-25 08:22] LABS: URINE NITRITE - DIPSTICK NEGATIVE (Negative)
[2020-10-25 08:33] LABS: ALBUMIN 3.9 g/dL (3.2-5.0); BILIRUBIN, TOTAL 0.6 mg/dL (0.0-1.4); CREATININE 3.3 mg/dL (0.5-1.0); POTASSIUM 4.3 mmol/l (3.5-5.1); TOTAL PROTEIN 8.9 g/dL (6.3-8.2)
[2020-10-25 08:34] LABS: URINE AMORPH SEDIMENT FEW hpf (NONE-FEW); URINE RBC 0-2 RBC/hpf (0-5); URINE WBC 0-2 WBC/hpf (0-5)
[2020-10-25 08:35] LABS: URINE SQUAMOUS EPITHELIAL CELL FEW EPI/hpf (0-FEW)
[2020-10-25] MEDS ORDERED: DOXAZOSIN4 MG PO (09:28)
== END 2020-10-25 10:59 | disposition short-term general hospital (02) ==
PROVIDERS: Family Medicine
DX: A41.9 Sepsis, unspecified organism (principal); E11.649 Type 2 diabetes mellitus with hypoglycemia without coma; R68.0 Hypothermia, not associated with low environmental temperature; I12.9 Hypertensive chronic kidney disease with stage 1 through stage 4 chronic kidney disease, or unspecified chronic kidney disease; E11.22 Type 2 diabetes mellitus with diabetic chronic kidney disease; N18.9 Chronic kidney disease, unspecified; G40.909 Epilepsy, unspecified, not intractable, without status epilepticus; Z86.73 Personal history of transient ischemic attack (TIA), and cerebral infarction without residual deficits; Z79.4 Long term (current) use of insulin; F17.200 Nicotine dependence, unspecified, uncomplicated; Z20.822 Contact with and (suspected) exposure to COVID-19

== ENCOUNTER 2020-11-08 22:04 | Inpatient (IN) | payer OTHER ==
[~2020-11-08 22:04] MED LIST changes: +DOXAZOSIN4 MG PO
--- NOTE | 2020-11-08 22:04 | NUR ---
BY WC TO ROOM
--- NOTE | 2020-11-08 22:23 | NUR ---
Reassessment of patient completed. FRIEND/FAMILY AT BEDSIDE
[2020-11-08 23:36] LABS: IMMATURE GRANULOCYTES 0.4 % (0.0-5.0); MEAN CORPUSCULAR HGB 32.3 pG CALC (26.0-32.0); MEAN CORPUSCULAR HGB CONC 30.5 g/dL CAL (32.0-36.0); NEUT# 4.52 thou/uL (2.00-7.15); RED BLOOD COUNT 2.35 mill/uL (4.20-5.60); RED CELL DISTRI WIDTH 17.4 % (11.5-15.5)
[2020-11-08 23:47] LABS: HEMATOCRIT 24.9 % (37.0-47.0); HEMOGLOBIN 7.6 g/dl (12.0-16.0)
[2020-11-08 23:51] LABS: ALBUMIN 3.7 g/dL (3.2-5.0); BILIRUBIN, TOTAL 0.7 mg/dL (0.0-1.4); CREATININE 3.7 mg/dL (0.5-1.0); POTASSIUM 3.7 mmol/l (3.5-5.1); TOTAL PROTEIN 7.9 g/dL (6.3-8.2)
[2020-11-09] VITALS (27 sets, daily range): BP systolic 119–202; BP diastolic 67–121
--- NOTE | 2020-11-09 00:01 | NUR ---
PT IN XRAY. Reassessment of patient completed. No distress noted.
[2020-11-09 00:26] LABS: INTERNATIONAL NORMALIZED RATIO 1.1 RATIO (0.7-1.3)
[2020-11-09 00:40] LABS: D-DIMER 1.09 mg/L (0.19-0.60)
--- NOTE | 2020-11-09 01:51 | NUR ---
REPORT GIVEN TO DUANE MARTINEZ IN ICU, PT WILL BE TRANSPORTED TO ICU WITH ANDRZEJ WEINSTEIN.
--- NOTE | 2020-11-09 02:15 | NUR ---
AT 0200 RECEIVED PATIENT FROM ER VIA STRETCHER INTO ICU BED 1. PATIENT ABLE TO STAND WITH ASSISTANCE TO TRANSFER FROM STRETCHER TO BED. PLACED ON FIELD CLERK SHOWING SR. O2 ON AT 3 L NC. RESP NON-LABORED. LUNGS CLEAR. PATIENT HAS SOME WEAKNESS TO LEFT EXTREMITIES FROM OLD CVA. 2+ PITTING EDEMA PRESENT TO BLE. PERIPHERAL PULSES INTACT. SALINE LOCK IN PLACE TO LH. REJ IN PLACE WITH NS INFUSING AT KVO AND LABETELOL GTT AT 0.5 MG/MIN (15 ML/HR). ADMISSION ASSESSMENT COMPLETED. ORIENTED PATIENT TO SURROUNDINGS. EXPLAINED USE OF CALL ARIAS AND BED CONTROLS. DISCUSSED PLAN OF CARE. DENIES NEEDS AT THIS TIME. PATIENT WALLET WITH BOOGIE AND CARDS SENT TO SAFE. CALL ARIAS IN REACH.
[2020-11-09 02:53] LABS: URINE BILIRUBIN - DIPSTICK NEGATIVE (NEGATIVE); URINE BLOOD DIPSTICK TRACE-INTACT (NEGATIVE); URINE COLOR YELLOW; URINE GLUCOSE - DIPSTICK 100 mg/dL (NEGATIVE); URINE KETONE NEGATIVE (NEGATIVE); URINE LEUK ESTERASE NEGATIVE (NEGATIVE); URINE PH 6.5 (4.5-8.0); URINE PROTEIN - DIPSTICK >=300 mg/dL (NEG-TRACE); URINE UROBILINOGEN - DIPSTICK 0.2 E.U./dL (0.2)
[2020-11-09 02:54] LABS: URINE NITRITE - DIPSTICK NEGATIVE (Negative)
--- NOTE | 2020-11-09 03:00 | NUR ---
RESTING WITH EYES CLOSED. VSS. RESP NON-LABORED. SR ON MONITOR.
[2020-11-09 03:01] LABS: URINE BACTERIA FEW hpf; URINE SQUAMOUS EPITHELIAL CELL MANY EPI/hpf (0-FEW)
--- NOTE | 2020-11-09 04:00 | NUR ---
VSS. LABETELOL GTT DECREASED TO 0.25 MG/MIN. WILL CONITNUE TO MONITOR. PATIENT RESTING QUIETLY WITH EYES CLOSED.
--- NOTE | 2020-11-09 05:00 | NUR ---
BP 119/67, LABETELOL OFF AT THIS TIME.
--- NOTE | 2020-11-09 05:15 | NUR ---
BLOOD DRAWN FOR AM LABS FROM REJ LINE. REJ LINE HAS GOOD BLOOD RETURN FLUSHED PRE AND POST LAB DRAW.
--- NOTE | 2020-11-09 06:00 | NUR ---
SLEEPING SOUNDLY. RESP NON-LABORED. VSS. SR ON MONITOR. NS AT KVO TO REJ IV SITE.
--- NOTE | 2020-11-09 06:55 | NUR ---
REPORT RECEIVED FROM DUANE JENKINS
[2020-11-09] MEDS ORDERED: KEPPRA500 M2 PO (07:24)
[2020-11-09] MEDS ORDERED: PROVENTIL HFA IN (07:24)
[2020-11-09] MEDS ORDERED: HYDRALAZINE HC100 MG PO (07:24)
[2020-11-09] MEDS ORDERED: ALLOPURINOL100 MG PO (07:25)
[2020-11-09] MEDS ORDERED: COLCHICINE0.6 M2 PO (07:25)
[2020-11-09] MEDS ORDERED: MAXZIDE-2537.5 MG/TA PO (07:26)
--- NOTE | 2020-11-09 07:45 | NUR ---
PT APPEARS TO BE SLEEPING IN SEMI FOWLERS POSITION,AWAKES TO VERBAL STIMULI & IS A&O X4;PT DENIES ANY CURRENT PAIN OR DISCOMFORTS,PAIN SCALE AND REPORTING EDUCATED;ASSESSMENT COMPLETED;CURRENT BP 142/93 HR 89;RESPIRATIONS EVEN AND UNLABORED ON O2 @ 2L VIA NC,CLEAR/DIMINISHED LUNG SOUNDS NOTED WITH NON-PRODUCTIVE COUGH;ABDOMEN SOFT ON PALPATION AND ACTIVE IN ALL 4 QUADRANTS;WEAK PEDAL PULSES;OLD HEALED SKIN GRAFT AREAS NOTED TO FEET AND THIGHS, SKIN OTHERWISE INTACT;LEFT SIDED WEAKNESS NOTED, HX CVA 2019;CARDIAC MONITORING IN PLACE;#20G TO REJ INFUSING NS @ KVO PER ORDER,SITE APPEARS HEALTHY;#22G TO LEFT HAND FLUSHED AND PATENT;ACCUCHECK 82;SEIZURE PRECAUTIONS IN PLACE;PT DENIES ANY ADDITIONAL NEEDS AT THIS TIME AND IS ENCOURAGED TO CALL FOR ASSISTANCE IF NEEDED;FALL PRECAUTIONS IN PLACE WITH BED IN THE LOWEST POSITION AND CALL LIGHT IN REACH;WILL CONTINUE TO MONITOR
--- NOTE | 2020-11-09 09:30 | NUR ---
AT BEDSIDE DISCUSSING POC.
--- NOTE | 2020-11-09 10:16 | NUR ---
LAB AT BEDSIDE
--- NOTE | 2020-11-09 11:11 | NUR ---
INFORMED CONSENT OBTAINED TO TRANSFUSE 1 UNIT OF PRBC'S. PT EDUCATED ON ALL RISKS AND BENEFITS OF BLOOD TRANSFUSION.PT ALSO EDUCATED ON ALL S/S OF A TRANSFUSE REACTION AND VERBALIZES UNDERSTANDING.
[2020-11-09 11:14] LABS: HEMATOCRIT 23.7 % (37.0-47.0); HEMOGLOBIN 7.2 g/dl (12.0-16.0); MEAN CELL VOLUME 105.8 fL CALC (80.0-100.0); MEAN CORPUSCULAR HGB 32.1 pG CALC (26.0-32.0); MEAN CORPUSCULAR HGB CONC 30.4 g/dL CAL (32.0-36.0); RED BLOOD COUNT 2.24 mill/uL (4.20-5.60); RED CELL DISTRI WIDTH 17.2 % (11.5-15.5)
[2020-11-09 11:30] LABS: ALBUMIN 3.2 g/dL (3.2-5.0); BILIRUBIN, TOTAL 0.6 mg/dL (0.0-1.4); CREATININE 3.7 mg/dL (0.5-1.0); TOTAL PROTEIN 6.9 g/dL (6.3-8.2)
--- NOTE | 2020-11-09 12:18 | NUR ---
1 UNIT OF PRBC'S ADMINISTERED AT THIS TIME WITH VERIFICATION FROM LAURARN;PT EDUCATED ON ALL S/S OF A BLOOD TRANSFUSION REACTION AND VERBALIZES UNDERSTANDING;RESPIRATIONS EVEN AND UNLABORED ON O2 @ 2L VIA NA;PT DENIES ANY CURRENT PAIN OR DISCOMFORTS;IV SITE TO LEFT HAND AND REJ PATENT;CARDIAC MONIORING SHOWS SR-ST 90'S-110'S;PT DENIES ANY ADDITIONAL NEEDS AT THIS TIME;WRITTER TO REMAIN AT BEDSIDE FOR INITIAL 15MINS PER [facility] PROTOC[facility];PT ENCOURAGED TO CALL FOR ANY ASSISTANCE OF NEEDED;CALL LIGHT IN REACH;WILL CONTINUE TO MONITOR
--- NOTE | 2020-11-09 12:33 | NUR ---
INITIAL 15MINS OF BLOOD TRANSFUSION COMPLETED AT THIS TIME;PT DENIES ANY S/S OF A REACTION;RESPIRATIONS EVEN AND UNLABORED ON O2 @ 2L VIA NC;VS REMAIN WNL;PT ASSISTED TO BEDSIDE COMMODE AT THIS TIME AND VOIDING YELLOW URINE,RE-POSITIONED BACK INTO BED;PT DENIES ANY ADDITIONAL NEEDS;ENCOURAGED TO CALL FOR ASSISTANCE IF NEEDED;CALL LIGHT IN REACH;WILL CONTINUE TO MONITOR
--- NOTE | 2020-11-09 13:18 | NUR ---
PT SLEEPING IN SEMI FOWLERS POSITION,WAKES TO VERBAL STIMULI;RESPIRATIONS SHALLOW ON O2 @ 2L VIA NC;PT DENIES ANY CURRENT PAIN OR S/S OF TRANFUSION REACTION;CARDIAC MONITORING IN PLACE AND VS WNL PT ENCOURAGED TO CALL FOR ASSISTANCE IF NEEDED;CALL LIGHT IN REACH;WILL CONTINUE TO MONITOR
--- NOTE | 2020-11-09 14:50 | NUR ---
BLOOD TRANSFUSION COMPLETED AT THIS TIME,PT TOLERATED WELL;PT UPSET, CRYING THAT SHE WAS NOT DISCHARGED HOME TODAY;PT RE-ASSURED AND PUDDING PROVIDED PER REQUEST;RESPIRATIONS SHALLOW ON O2 @ 2L VIA NC;PT DENIES ANY CURRENT PAIN OR NEEDS;CARDIAC MONITORING IN PLACE;IV SITES PATENT;PT DENIES ANY ADDITIONAL NEEDS;ENCOURAGED TO CALL FOR ASSISTANCE IF NEEDED;CALL LIGHT IN REACH;WILL CONTINUE TO MONITOR
--- NOTE | 2020-11-09 15:15 | NUR ---
INCREASED WHEEZING NOTED AND SOB WHILE ON O2 @ 2L, O2 SATS STABLE AT 95%. PT BP ALSO ELEVATED 202/121 MANUAL.PT DENIES ANY CURRENT PAIN. NOTIFIED,AWAITING NEW ORDERS.
--- NOTE | 2020-11-09 15:53 | NUR ---
PT MEDICATED WITH PRN CATAPRES 0.1MG PO AT THIS TIME FOR BP 180/107 HR 97.
--- NOTE | 2020-11-09 17:50 | NUR ---
PT APPEARS TO BE SLEEPING IN SEMI FOWLERS POSITION;RESPIRATIONS APPEAR EVEN AND UNLABORED ON O2 @ 2L VIA NC;NO S/S OF DISTRESS NOTED;CARDIAC MONITORING IN PLACE;BP 152/88 HR 90'S AFTER PRN CLONDINE ADMINISTRATION;IV SITE TO REJ AND LH PATENT;ACCUCHECK 150;ALL SAFETY PRECAUTIONS IN PLACE WITH BED IN THE LOWEST POSITION AND CALL LIGHT IN REACH;WILL CONTINUE TO MONITOR
--- NOTE | 2020-11-09 19:19 | NUR ---
PATIENT UP TO BSC WITH 2 PERSON ASSIST. VOIDS 500 ML CLEAR YELLOW URINE. ASSISTED BACK TO BED. ALERT AND ORIENTED. RESP NON-LABORED. O2 ON AT 2 L NC. AUDIBLE EXERTIONAL WHEEZE NOTED. COARSE BREATH SOUNDS THROUGHOUT LUNG COMBS. OCC DRY NON-PRODUCTIVE COUGH. GENERALIZED EDEMA NOTED. SALINE LOCK INTACT IN LH AND REJ. OIL SALES AND SERVICE REP SHOWS SR. DISCUSSED PLAN OF CARE. DENIES NEEDS AT THIS TIME. CALL ARIAS IN REACH. SET PATIENT UP WITH DINNER TRAY.
[2020-11-09 19:30] LABS: HEMATOCRIT 27.3 % (37.0-47.0); HEMOGLOBIN 8.5 g/dl (12.0-16.0)
--- NOTE | 2020-11-09 21:00 | NUR ---
HS ACCU CHECK 215. PATIENT GIVEN SCHEDULED DOSE OF 70/30 INSULIN.
--- NOTE | 2020-11-09 21:15 | NUR ---
DR CELAYA INFORMED OF ELEVATED BP AND EPISODES OF WHEEZING. NEW ORDERS RECEIVED.
--- NOTE | 2020-11-09 22:00 | NUR ---
RESTING WITH EYES CLOSED. RESP NON-LABORED. VSS. BP COMING DOWN AFTER MEDS GIVEN EARLIER. SR ON MONITOR.
--- NOTE | 2020-11-09 23:30 | NUR ---
ASSISTED UP TO [facility] TO VOID. MOVES WELL WITH TWO ASSISTS.
[2020-11-10] VITALS (13 sets, daily range): BP systolic 136–171; BP diastolic 85–112
--- NOTE | 2020-11-10 | NUR ---
RESTING WITH EYES CLOSED. RESP NON-LABORED. O2 SAT 99% ON O2 2 L NC. NO AUDIBLE WHEEZING NOTED SINCE EARLY IN THE SHIFT. SR ON MONITOR.
--- NOTE | 2020-11-10 02:05 | NUR ---
SLEEPING SOUNDLY. RESP NON-LABORD. VSS. SR ON MONITOR.
--- NOTE | 2020-11-10 03:00 | NUR ---
PATIENT CALLED FOR NURSE. STATES FEELS BS IS LOW. PATIENT OTED TO BE DIAPHORETIC. ACCU CHECK SHOWS CCL BS. ATTEMPTED TO REACH LAB FOR STAT SERUM GLUCOSE.
--- NOTE | 2020-11-10 03:05 | NUR ---
KELLY GIVEN APPLE JUICE AND NUTRI GRAIN BAR. ASSISTED UP TO BSC TO VOID TEN BACK TO BED.
--- NOTE | 2020-11-10 03:12 | NUR ---
REACHED BRIMMER BLOCKER SHE IS ON HER WAY FOR LAB DRAW. PATIENT STATES FEELS BETTER. DRINKING ANOTHER APPLE JUICE.
--- NOTE | 2020-11-10 03:15 | NUR ---
TORCH OPERATOR HERE FOR BLOOD DRAW.
[2020-11-10 03:38] LABS: HEMATOCRIT 29.2 % (37.0-47.0); IMMATURE GRANULOCYTES 0.1 % (0.0-5.0); MEAN CELL VOLUME 102.5 fL CALC (80.0-100.0); MEAN CORPUSCULAR HGB 31.6 pG CALC (26.0-32.0); MEAN CORPUSCULAR HGB CONC 30.8 g/dL CAL (32.0-36.0); NEUT# 3.84 thou/uL (2.00-7.15); RED BLOOD COUNT 2.85 mill/uL (4.20-5.60); RED CELL DISTRI WIDTH 18.7 % (11.5-15.5)
[2020-11-10 04:01] LABS: CREATININE 4.2 mg/dL (0.5-1.0); POTASSIUM 3.5 mmol/l (3.5-5.1)
--- NOTE | 2020-11-10 04:15 | NUR ---
RECHECK BS BY ACCU CHECK SHOWS 48. PATIENT ASYMPTOMATIC OF LOW BS AT THIS TIME. 1 AMP D50 GIVEN IVP ORDERED FOR CONTINUED LOW BS. PATIENT WITH INTERMITTENT AUDIBLE WHEEZ USED ATROVENT INHALER ORDERED.
--- NOTE | 2020-11-10 04:55 | NUR ---
RECHECK BS BY ACCU CHECK 107.
--- NOTE | 2020-11-10 06:00 | NUR ---
RESTING WITH EYES CLOSED. RESP NON-LABORED. VSS. SR ON MONITOR.
--- NOTE | 2020-11-10 07:55 | NUR ---
PT SLEEPING IN BED. AWAKENED TO COMPLETE ASSESSMENT. A&O X3. NO DISTRESS NOTED. O2 VIA NC @2L IN PLACE. O2 CURRENTLY 95%. EXPIRATORY WHEEZING HEARD UPON AUSCULTATION. #[address] HEALTHY AND PATENT. #22 LH HEALTHY AND PATENT. CURRENTLY SR ON MONITOR RATE OF 98. PT WEAKENED FROM LT SIDE. PT REPORTS THIS IS DUE TO HER "PAST STROKE". VIKTORIYA AND LLE DRIFT DOWN TO BED. TRACE EDEMA NOTED TO BLE. ASSESSMENT COMPLETED. DISCUSSED POC. CALL LIGHT WITHIN REACH.
--- NOTE | 2020-11-10 09:50 | NUR ---
DR CELAYA AT BEDSIDE DISCUSSING POC
[2020-11-10] MEDS ORDERED: ADVAIR DISK1 INH (09:54)
--- NOTE | 2020-11-10 10:00 | NUR ---
PT ASSISTED TO THE BSC. CLEAR YELLOW URINE NOTED. NO OTHER NEEDS AT THIS TIME. ASSISTED PT BACK TO BED. CALL LIGHT LEFT WITHIN REACH.
--- NOTE | 2020-11-10 10:30 | NUR ---
ANGEL FROM RADIOLOGY AT BEDSIDE
--- NOTE | 2020-11-10 12:00 | NUR ---
PT EATING LUNCH. NO NEEDS AT THIS TIME. CALL LIGHT WITHIN REACH.
--- NOTE | 2020-11-10 14:00 | NUR ---
PT SLEEPING IN BED. NO DISTRESS NOTED. CALL LIGHT WITHIN REACH.
--- NOTE | 2020-11-10 16:00 | NUR ---
PT ASSISTED TO THE BSC. NO NEEDS AT THIS TIME. ASSISTED PT BACK INTO BED WITH THE ASSISTANCE OF Brittany BECKWITH RN. O2 VIA NC IN PLACE AT 2L. CALL LIGHT LEFT WITHIN REACH.
--- NOTE | 2020-11-10 20:00 | NUR ---
RESTING IN BED WITH EYES CLOSED, AWAKENS TO NAME. VSS. RESP NON-LABORED. O2 ON AT 2 L NC. O2 SAT 98% BREATH SOUNDS CLEAR. TRACE EDEMA TO BLE. SALINE LOCK INTACT TO LH AND REJ. INSIDE SALES ADVERTISING EXECUTIVE SHOWS SR. DISCUSSED PLAN OF CARE. DENIES NEEDS AT THIS TIME. CALL ARIAS IN REACH.
--- NOTE | 2020-11-10 21:45 | NUR ---
ASSISTED UP TO BED TO USE BSC. VOIDED CLEAR YELLOW URINE. VSS. RESP NON-LABORED. SR ON MONITOR.
--- NOTE | 2020-11-10 22:35 | NUR ---
INCONTINENT OF LARGE AMOUNT LIQUID BURGANDY STOOL AND CLOTS. SKIN CARE GIVEN AND PARTIAL BED CHANGE.
[2020-11-11] VITALS (13 sets, daily range): BP systolic 134–156; BP diastolic 78–108
--- NOTE | 2020-11-11 | NUR ---
RESTING QUIETLY IN BED. VSS. RESP NON-LABORED. SR ON MONITOR.
--- NOTE | 2020-11-11 02:00 | NUR ---
SLEEPING. RESP NON-LABORED. VSS. MONITOR SR.
--- NOTE | 2020-11-11 04:05 | NUR ---
NO CHANGES TO REPORT. SLEEPING SOUNDLY. RESP NON-LABORED. VSS. SR ON MONITOR.
--- NOTE | 2020-11-11 06:00 | NUR ---
CONDITION UNCHANGED. IN NO ACUTE DISTRESS. VSS. SR ON MONITOR.
[2020-11-11 07:42] LABS: HEMATOCRIT 26.9 % (37.0-47.0); HEMOGLOBIN 8.4 g/dl (12.0-16.0); MEAN CELL VOLUME 103.5 fL CALC (80.0-100.0); MEAN CORPUSCULAR HGB 32.3 pG CALC (26.0-32.0); MEAN CORPUSCULAR HGB CONC 31.2 g/dL CAL (32.0-36.0); RED BLOOD COUNT 2.6 mill/uL (4.20-5.60); RED CELL DISTRI WIDTH 17.9 % (11.5-15.5)
[2020-11-11 08:09] LABS: CREATININE 4.2 mg/dL (0.5-1.0)
--- NOTE | 2020-11-11 08:10 | NUR ---
DR DOMINGO AT BEDSIDE
--- NOTE | 2020-11-11 19:45 | NUR ---
PATIENT IS DROWSY, AWAKENS EASILY. ORIENTED X4, FOLLLOWS COMMANDS ANSWERS QUESTIONS APPROPRIATELY. 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 NURSE ASSESSMENT PERFORMED. ON 2 L.MIN NC, O2 SAT 98%, NO SOB NOTED, PATIENT DOES RPEORT SHE IS SOB, LUNG SOUNDS CLEAR ON POSTERIOR UPPER LUNGS, DIMINISHED ANTERIOR AND POSTERIOR LUNG BASES, SHE DOES HAVE AUDIBLE WHEEZES. SR ON TELEMETRY, HR 80'S. DENIES PAIN. IS OMEGA TO REPOSITION HERSELF WITH VERBAL CUEING. BILAT LEGS EDEMETOUS, GREATER ON LEFT THAN RIGHT. REJ IV AND L-HAND IV'S INTACT, FLUSH PROPERLY, SALINE LOCKED. POC DISCUSSED FOR TONIGHT DISCUSSED, PATIENT UNDERSTANDS AND AGREES. CALL LIGHT WITHIN REACH.
--- NOTE | 2020-11-11 21:53 | NUR ---
PATIENT ABLE TO SWALLOW BEDTIME MEDICATIONS, WAS EXPLAINED WHAT MEDICATIONS SHE IS TAKING, NO INSULIN GIVEN TONIGHT DUE TO DURING THE DAY HER BLOOD SUGAR WAS LOW, TONIGHT'S BLOOD SUGAR IS 104. ORANGE JUICE AND A BAR SNACK PROVIDED, PATIENT DRINKS JUICE. NO COMPLAINTS, PATIENT HAS AUDIBLE WHEEZING, SLIGHT SOB WITH EXERTION, VENTOLIN INHALER PROVIDED. PATIENT LAYS IN PADRON'S POSITION. REQUESTS FOR HER CELLPHONE, PROVIDED. CALL LIGHT WITHIN REACH.
--- NOTE | 2020-11-11 23:54 | NUR ---
PATIENT WAS ASSISTED FROM BSC TO BED, DOES REQUIRE ASSISTANCE TO BED SINCE SHE IS WEAK ON LEFT SIDE. LAYS IN HIGH PADRON'S. NO OTHER NEEDS OR COMPLAINTS AT THIS TIME. NO ACUTE DISTRESS SHOWN. CALL LIGHT WITHIN REACH.
[2020-11-12] VITALS (15 sets, daily range): BP systolic 136–169; BP diastolic 88–108
--- NOTE | 2020-11-12 02:38 | NUR ---
PATIENT SAFETY NET MAKER LIGHT, REQUESTS TO BE PULLED UP SHE REPORTS SHE HAS DIFFICULTY BREATHING WHEN SHE HAS SLID DOWN ON THE BED.
--- NOTE | 2020-11-12 04:55 | NUR ---
LAB IN ROOM TO DRAW BLOOD. PATIENT IS AWAKE. L-HAND IV REMOVED DUE TO LEAKING, REJ IV INTACT, FLUHES PROPERLY. PATIENT WAS ASKED IF SOB IS WORSE TOAY, PATIENT REPORTS IT IS WORSE, VENTOLIN INHALER PROVIDED, NO TACHYPNEA NOTED. PT REQUESTS A JUICE THIS AM, PROVIDED, CONTINUES TO LAY IN HIGH PADRON'S. WILL CONTINUE TO MONITOR. CALL LIGHT WITHIN REACH. SR ON TELEMETRY, BP 140'S SYSTOLIC, O2 SATS GREATER THAN 95% ON 2 L/MIN NC.
[2020-11-12 05:04] LABS: HEMOGLOBIN 8.8 g/dl (12.0-16.0); IMMATURE GRANULOCYTES 0.2 % (0.0-5.0); MEAN CELL VOLUME 102.8 fL CALC (80.0-100.0); MEAN CORPUSCULAR HGB 31.2 pG CALC (26.0-32.0); MEAN CORPUSCULAR HGB CONC 30.3 g/dL CAL (32.0-36.0); NEUT# 5.9 thou/uL (2.00-7.15); RED BLOOD COUNT 2.82 mill/uL (4.20-5.60)
[2020-11-12 05:23] LABS: CREATININE 4.6 mg/dL (0.5-1.0); POTASSIUM 4.3 mmol/l (3.5-5.1)
--- NOTE | 2020-11-12 06:21 | NUR ---
PATIENT GIVEN CLONIDINE PRN PO FOR ELEVATED BP.
--- NOTE | 2020-11-12 07:11 | NUR ---
Patient is screened for rehab interventions and no needs aere identified at this time
--- NOTE | 2020-11-12 07:15 | NUR ---
REPORT RECEIVED FROM DUANE CORLEY. PT RESTING IN BED WITH SOB ELEVATED; ASLEEP WITH EYES CLOSED WITH DEEP, EVEN, AND UNLABORED BREATHING WITH 2L OXYGEN VIA NC; SPO2 97%; OXYGEN TITRATED DOWN TO 1L AT THIS TIME. NO SIGNS OF DISTRESS. IV TO RIGHT NECK APPEARS HEALTHY. SINUS RHYTHM HEART RATE 95 ON AUTOMOTIVE SERVICE MANAGEMENT TEACHER. SAFETY MEASURES IN PLACE. CALL LIGHT WITHIN REACH.
--- NOTE | 2020-11-12 07:34 | NUR ---
PT NOW AWAKE AND ON ROOM AIR; SPO2 93%. REQUESTING SOMETHING TO DRINK; WATER AND APPLE JUICE PROVIDED. DROWSY AND ORIENTED X 3.
--- NOTE | 2020-11-12 08:27 | NUR ---
ASSISTED TO BSC X 1 PERSON ASSIST FOR VOID OF 400 ML. REPOSITIONED INTO BEDSIDE CHAIR FOR BREAKFAST; REQUIRES ASSISTANCE FOR SET UP. AM MEDICATIONS GIVEN AT THIS TIME DUE TO ELEVATED BLOOD PRESSURE.
--- NOTE | 2020-11-12 09:10 | NUR ---
DR. DOMINGO AT BEDSIDE TO DISCUSS POC. INCENTIVE SPIROMETER PROVIDED AND EDUCATED ON USE.
--- NOTE | 2020-11-12 10:15 | NUR ---
RESTING WITH EYES CLOSED IN RECLINER WITH BLE ELEVATED. GIVEN NEW MEDICATION, PROCARDIA. BP CURRENTLY 145/99 HR 84.
--- NOTE | 2020-11-12 10:44 | NUR ---
ORDER RECEIVED TO TRANSFER TO [facility] WITH TELEMETRY. PATIENT NOTIFIED.
--- NOTE | 2020-11-12 10:50 | NUR ---
PT TRANSPORTED TO MED/SURG ROOM 278 IN STABLE CONDITION VIA WHEELCHAIR ACCOMPANIED BY JESSICA WAITE;PT AMBULATED TO BEDSIDE WITH X1 ASSIST;PT A&O X3,ORIENTED TO ROOM AND CALL LIGHT SYSTEM;VS AND WT OBTAINED BY JESSICA JAMES;PT HYPERTENSIVE AT THIS TIME,WILL CONTINUE TO MONITOR BP;PT DENIES ANY CURRENT PAIN OR DISCOMFORTS,PAIN SCALE AND REPORTING EDUCATED;ASSESSMENT COMPLETED;RESPIRATIONS EVEN AND UNLABORED ON RA,CLEAR/DIMINISHED LUNG SOUNDS NOTED;ABDOMEN SOFT ON PALPATION AND ACTIVE IN ALL 4 QUADRANTS;WEAK PEDAL PULSES;HEALED SKIN GRAFT AREAS NOTED TO THIGH AND FEET,SKIN OTHERWISE INTACT;LEFT SIDED WEAKNESS R/T HX CVA;REJ #20 FLUSHED AND PATENT,SITE APPEARS HEALTHY;TELE MONITORING TO BE PLACED ON PT;ACCUCHECK 209;SEIZURE PRECAUTIONS IN PLACE;PT DENIES ANY ADDITIONAL NEEDS AND IS ERNCOURAGED TO CALL FOR ASSISTANCE IF NEEDED;FALL PRECAUTIONS IN PLACE WITH BED IN THE LOWEST POSITION AND CALL LIGHT IN REACH;WILL CONTINUE TO MONITOR
--- NOTE | 2020-11-12 10:55 | NUR ---
TRANSFERRED TO [facility] VIA WHEELCHAIR TO ROOM 278 IN STABLE CONDITION; REPORT GIVEN TO EDDIE MARTINEZ.
--- NOTE | 2020-11-12 10:55 | NUR ---
REPORT RECEIVED FROM ABHINAVRN
--- NOTE | 2020-11-12 12:00 | NUR ---
PT RESTING IN SEMI FOWLERS POSITION;RESPIRATIONS REMAIN EVEN AND UNLABORED ON RA;PT DENIES ANY CURRENT PAIN OR DISCOMFORTS;TELE MONITORING IN PLACE;IV SITE PATENT;PT ENCOURAGED TO CALL FOR ASSISTANCE IF NEEDED;CALL LIGHT IN REACH;WILL CONTINUE TO MONITOR
--- NOTE | 2020-11-12 13:49 | NUR ---
AT BEDSIDE DISCUSSING POC.
--- NOTE | 2020-11-12 15:40 | NUR ---
PT RESTING IN SEMI FOWLERS POSITION;RESPIRATIONS EVEN AND UNLABORED ON RA;PT DENIES ANY CURRENT PAIN OR DISCOMFORTS;TELE MONITORING IN PLACE;REJ PATENT;PT DENIES ANY ADDITIONAL NEEDS AT THIS TIME;ENCOURAGED TO CALL FOR ASSISTANCE IF NEEDED;FALL PRECAUTIONS IN PLACE WITH BED IN THE LOWEST POSITION AND CALL LIGHT IN REACH;WILL CONTINUE TO MONITOR
--- NOTE | 2020-11-12 20:00 | NUR ---
PATIENT RESTING IN BED AT THIS TIME-AWAKE ALERT AND ORIENTEDX3. SPEECH IS SLIGHTLY SLURRED AND PATIENT WITH LEFT HEMIPLEGIA-S/P CVA. BP IS 153/105 AT THIS TIME-CATAPRESS AND APRESOLINE GIVEN ORDERED. TELE MONITOR IN PLACE AND READING SR-93 IVCD. IV TO RIGHT NECK SITE INTACT AND FLUSHES FREELY WITH BLOOD RETURN. SAFETY PRECAUTIONS REINFORCED. CALL LIGHT IN REACH. WILL CONT TO MONITOR.
--- NOTE | 2020-11-12 21:00 | NUR ---
PATIENT GIVEN COMPLETE BED BATH AND LINEN CHANGE. ACCU-CHECK WAS 189-MEDICATED WITH 70/30 40UNITS SCHEDULED. PROVIDED WITH HS SNACK. TELE MONITOR IN PLACE. UNABLE TO OBTAIN LAB SPEC FROM SITE. FLUSHES FREELY BUT NOT ABLE TO GET ENOUGH BLOOD FOR LAB SPEC. LAB WAS NOTIFIED AND URIC ACID WAS RUN ON SPEC FROM EARLIER TODAY. BP RECHECK WAS 137/90. C/O SOB-O2 VIA NASAL CANNULA APPLIED AT 2LPM. CALL LIGHT IN REACH. WILL CONT TO MONITOR.
[2020-11-13] VITALS (7 sets, daily range): BP systolic 128–155; BP diastolic 82–98
--- NOTE | 2020-11-13 03:47 | NUR ---
PATIENT ASSISTED UP TO THE BSC TO VOID WHEN PATIENT C/O FEELING [id number] WAS DONE AND WAS 36. ASSISTED BACK TO THE BED AND D10 250CC HUNG FOR HYPOGLYCEMIA. PATIENT SKIN IS WARM AND DRY. DENIES ANY VISION PROBLEMS AT THIS TIME. STATES THAT SHE IS FEELING SHAKEY. PATIENT IS AWAKE ALERT AND ORIENTEDX3. PATIENT ABLE TO DRINK 2 OJ'S AND TOLERATED WELL. D10 CONT TO INFUSE. WILL CONT TO MONITOR.
[2020-11-13 04:00] LABS: HEMATOCRIT 30.7 % (37.0-47.0); HEMOGLOBIN 9.6 g/dl (12.0-16.0); MEAN CELL VOLUME 102.7 fL CALC (80.0-100.0); MEAN CORPUSCULAR HGB 32.1 pG CALC (26.0-32.0); MEAN CORPUSCULAR HGB CONC 31.3 g/dL CAL (32.0-36.0); RED BLOOD COUNT 2.99 mill/uL (4.20-5.60); RED CELL DISTRI WIDTH 16.8 % (11.5-15.5)
--- NOTE | 2020-11-13 04:10 | NUR ---
PATIENT RESTING IN BED-TAKING PEANUT BUTTER AND OSVALDO CRACKERS AT THIS TIME WITH GRAPE JUICE. D10 HAS FINISHED AND [id number]. PATIENT STATES THAT SHE IS FEELING BETTER. CALL LIGHT IN REACH. WILL CONT TO MONITOR.
[2020-11-13 04:15] LABS: ALBUMIN 3.5 g/dL (3.2-5.0); BUN 56 mg/dL (7-17); CARBON DIOXIDE 25 mmol/l (22-30); CHLORIDE 107 mmol/l (95-108); CREATININE 4.3 mg/dL (0.5-1.0); GFR 12 ML/MIN (>=60 (CALC)); GFR FOR AFR.AMER. 15 ML/MIN (>=60 (CALC)); POTASSIUM 3.9 mmol/l (3.5-5.1); SODIUM 140 mmol/l (137-146)
[2020-11-13 04:16] LABS: CREATININE 4.3 mg/dL (0.5-1.0); MAGNESIUM 2.3 mg/dL (1.6-2.3)
--- NOTE | 2020-11-13 06:42 | NUR ---
ACCU-CHECK IS 93 AT THIS TIME. WILL CONT TO MONITOR.
--- NOTE | 2020-11-13 07:27 | NUR ---
RESPONDED TO PATIENT ROOM AND FOUND PATIENT AND STAFF ON THE FLOOR WITH STAFF. STAFF MEMBER NILA LOPEZ STATES THAT SHE WAS ASSISTING PATIENT TO THE BSC WHEN THE PATIENT WAS LOWERED DOWN TO THE FLOOR FOR PATIENT SAFETY. PATIENT WAS NOT ABLE TO STAND AND BEAR WEIGHT. MAX ASSIST OF SEVERAL STAFF MEMBERS TO PLACE PATIENT BACK INTO BNED. PATIENT IS TEARFUL AND APOLGIZING FOR NOT BEING ABLE TO STAND. PATIENT S/P CVA WITH LEFT HEMIPLEGIA/WEAKNESS. DENIES ANY PAIN AT THIS TIME. VS TAKEN-155/98, HR-99, O2 SAT-95%. REOPORT GIVEN TO DAYSHIFT NURSE CALISTA MORGAN. WILL CONT TO MONITOR.
--- NOTE | 2020-11-13 07:30 | NUR ---
ASSESSMENT IS COMPLETED: IV SITE IS FREE FROM REDNESS OR EDEMA. HR IS REG,PULSES ARE STRONG ON RADIAL AND R FOOT, WEAK ON LEFT FOOT. ABD IS SOFT WITH ACTIV EBS, BREATH SOUNDS ARE CLEAR BILATERALLY. CONTINUE TO OSBERVE AND MONITOR.
--- NOTE | 2020-11-13 08:05 | NUR ---
UP TO VOID QS. ASSISTED X2 TO SIT UP IN CHAIR BY HER BED TO EAT BREAKFAST WITHOUT INCIDENCE.
--- NOTE | 2020-11-13 09:36 | NUR ---
BS RECHECKED AFTER BREAKFAST IS 184
--- NOTE | 2020-11-13 09:59 | NUR ---
PT REMAINS SITTING IN THE CHAIR. NO DISTRESS NOTED.
--- NOTE | 2020-11-13 10:29 | NUR ---
SPOKE WITH JOVANNY HOWARD ON THE PHONE WITH JOSE R BARK SPUDDER. THEN TRANSFERRED THE CALL TO THE PT.
--- NOTE | 2020-11-13 12:05 | NUR ---
PT IS SITTING IN THE CHAIR. NO DISTRESS NOTED. IV SITE IS FREE FROM REDNESS OR EDEMA.
--- NOTE | 2020-11-13 16:10 | NUR ---
PT IS STILL IN THE CHAIR. NO DISTRESS NTOED. IV SITE IS FREE FROM REDNESS OR EDEMA. FAMILY IN TO VISIT WITH PT.
--- NOTE | 2020-11-13 20:15 | NUR ---
PT IS SLEEPING, NO S/O DISTRESS NOTED. CALL LIGHT AT SIDE.
--- NOTE | 2020-11-13 22:00 | NUR ---
PT MEDICATED AND ASSESSED ORDERS PROVIDE.
--- NOTE | 2020-11-13 22:31 | NUR ---
PT C/O FEELING SOB, REPOSITIONED HIGHER IN BE SITTING UPRIGHT AND PROVIDED ALBUTEROL INHAILER, PT REPORTS FEELING BETTER. OXYGEN NC ON2L SAT LEVELS STABLE. PT ASKED FOR GRAPE JUICE OVER ICE/PROVIDED.
--- NOTE | 2020-11-13 23:59 | NUR ---
PT PROVIDED WARMPACK FOR HER BACK. STATES SHE FEELS LIKE SHE STRAINED IT WHEN SHE FELL EARLIER. PILLOWS PROVIDED ALSO FOR COMFORT.
[2020-11-14] VITALS: BP 149/94
--- NOTE | 2020-11-14 00:26 | NUR ---
PT SLEEPING, NO S/O DISTRESS NOTED.
--- NOTE | 2020-11-14 02:22 | NUR ---
Assisted pt up to bsc with 2 person assist. 500cc of clear yellow urine emptied at this time. Assisted pt back to bed. Denies any other needs. po fluids provided fresh at bedside and call light w/in reach. Oxygen nc on @2L.
[2020-11-14 04:00] VITALS: BP 129/87
[2020-11-14 05:42] LABS: HEMATOCRIT 27.1 % (37.0-47.0); HEMOGLOBIN 8.2 g/dl (12.0-16.0); MEAN CELL VOLUME 104.6 fL CALC (80.0-100.0); MEAN CORPUSCULAR HGB 31.7 pG CALC (26.0-32.0); MEAN CORPUSCULAR HGB CONC 30.3 g/dL CAL (32.0-36.0); RED BLOOD COUNT 2.59 mill/uL (4.20-5.60); RED CELL DISTRI WIDTH 16.4 % (11.5-15.5)
[2020-11-14 06:09] LABS: ALBUMIN 3.1 g/dL (3.2-5.0); CREATININE 4.5 mg/dL (0.5-1.0); MAGNESIUM 2.2 mg/dL (1.6-2.3); POTASSIUM 4.5 mmol/l (3.5-5.1)
[2020-11-14 07:40] VITALS: BP 137/91
--- NOTE | 2020-11-14 08:00 | NUR ---
PT RESTING IN THE BED AXOX3, NOTED LLE FLACID. PT STATES THE DISCOMFORT SHE HAD IN HER LOWER BACK YESTERDAY HAS IMPROVED, SHE HAS ONLY SLIGHT DISCOMFORT, SKIN IN TACT. O2 IN PLACE NO RESP DISTRESS NOTED AT THIS TIME. REPOSITIOEND FOR COMOFRT, SIDE RAILS UP CALL LIGHT INREACH BED LOCKED IN LOW POSITION, ALL SAFTY MEASURES IN PLACE WILL CONTINUE TO MONIOTR THE PATIENT.
--- NOTE | 2020-11-14 09:00 | NUR ---
OUT OF THE BED TO THE WITH ASST OF 2. PT GIVEN SHOWER. BACK TO THE BEDSIDE CHAIR. CALL LIGHT IN REACH, O2 IN PLACE. NO DISTRESS NOTED AT THIS TIME.
--- NOTE | 2020-11-14 10:00 | NUR ---
PT RESTING COMFORTABLE IN THE BEDSIDE CHAIR, O2 IN PLACE, NO RESP DISTRESS NOTED AT THIS TIME. CALL LIGHT IN REACH, WILL CONTINUE TO MONIOTR THE PATIENT.
[2020-11-14 10:49] VITALS: BP 133/79
--- NOTE | 2020-11-14 12:31 | NUR ---
PT REQUEST HER BS TO BE TAKEN 31 DEXTOSE GIVEN PER ORDER, REPORTED TO THE PROVIDER. PT AXO, WILL CONTINUE TO MONIOTR.
--- NOTE | 2020-11-14 13:42 | NUR ---
1200 ABT LATE DUE TO LACK OF IV ACCESS.
--- NOTE | 2020-11-14 14:00 | NUR ---
PT RESTING IN THE BED, NO DISTRESS NOTED AT THIS TIME. WILL CONTINUE TO MONIOTR THE PATIENT.
--- NOTE | 2020-11-14 14:14 | NUR ---
BS 130 NO DISTRESS NOTED AT THIS TIME.
[2020-11-14 14:30] VITALS: BP 115/70
--- NOTE | 2020-11-14 16:35 | NUR ---
UP TO VOID TO THE BEDSIDE COMMODE THEN BACK TO BED. NO C/O OF PAIN OR SOB NOTED AT THIS TIE.
--- NOTE | 2020-11-14 19:20 | NUR ---
REPORT RECEIVED FROM DAY NURSE. PT IS UPRIGHT IN THE BED EATING HER DINNER. DENIES ANY NEEDS AT THIS TIME. POC DISCUSSED WITH THE PT AT THIS TIME. I INFORMED HER THAT WE WOULD CHECK HER BLOOD SUGAR VIA ACCU-CHECK Q4 WITH V/S ASSESSMENT DUE TO DROPPING SO LOW THE LAST TWO MORNINGS. SHE AGREED VERBALLY WITH THIS.
[2020-11-14 19:24] VITALS: BP 134/87
--- NOTE | 2020-11-14 20:39 | NUR ---
PT MEDICATED ORDERS PROVIDE. NO S/O DISTRESS NOTED. PT ASSESSMENT COMPLETED ALSO AT THIS TIME. PT DID EAT WELL AND IS SAVING PART OF HER FOOD THAT HER MOTHER BROUGHT HER TO EAT MORE LATER. I DISCUSSED HER STOOL OUTPUT, DENIED FEELING CONSTIPATED, BUT DOES REPORT HAVING NOT GONE FOR 4 DAYS. DENEID NEED FOR SUPPOSITORY STATING SHE DOESN'T FEEL DISCOMFORT OR CONSTIPATED. MIRILAX GIVEN AND JIMBO-COLACE AT THIS TIME. INSTRUCTED HER TO CALL ANY NEEDS ARISE. CALL LIGHT AT SIDE.
[2020-11-15] VITALS (8 sets, daily range): BP systolic 120–180; BP diastolic 77–119
--- NOTE | 2020-11-15 00:52 | NUR ---
Pt is sleeping, no s/o distress noted. lights and tv are on low.
--- NOTE | 2020-11-15 03:34 | NUR ---
PT SLEEPING AT THIS TIME. NO S/O DSITRESS NOTED.
[2020-11-15 06:38] LABS: HEMATOCRIT 27.9 % (37.0-47.0); HEMOGLOBIN 8.6 g/dl (12.0-16.0); MEAN CELL VOLUME 104.9 fL CALC (80.0-100.0); MEAN CORPUSCULAR HGB 32.3 pG CALC (26.0-32.0); MEAN CORPUSCULAR HGB CONC 30.8 g/dL CAL (32.0-36.0); RED BLOOD COUNT 2.66 mill/uL (4.20-5.60)
[2020-11-15 07:05] LABS: MAGNESIUM 2.2 mg/dL (1.6-2.3); POTASSIUM 4.4 mmol/l (3.5-5.1)
--- NOTE | 2020-11-15 08:00 | NUR ---
SHIFT CHANGE REPORT, PT AWAKE ALERT AND ORIENTED SITTING UP IN BED, BP ELEVATED AT THIS TIME AND CONDITION ADDRESSED, O2 @ 2L VIA NC IN PLACE, NO C/O DISCOMFORT AT THIS TIME, CALL ARIAS IN REACH AND BED LOCKED IN LOWEST POSITION.
--- NOTE | 2020-11-15 09:30 | NUR ---
VENOFER IV BEING HUNG, PT STARTED TO CRY OUT LOUDLY STATING ITS BURNING HER, ALSO 0.9 NS BURNING WHEN VENOVER HALTED, STATING SHE WSANTS TO GO HOME AND IS BEING STUCK TOO MANY TIMES, NURSE OFFERED TO TRY PLACING IV CATHETER IN ARM INSTEAD OF NECK WHERE IT CORRENTLY IS BUT SHE BLATANTLY AND ADAMANTLY REFUSED REPEATING SHE JUST WANTS TO GO HOME. NUSE DISCUSSED REASON FOR TREATMENTS WITH PT BUT HER DEMEANOR WAS JUST FLAT AND SHE WAS STILL SOBBING, NURSE COMFORTED PT WITH VERBAL AND TACTILE THERAPY AND LEFT ROOM, WILL CONTINUE TO MONITOR.
--- NOTE | 2020-11-15 12:07 | NUR ---
BEING TRANSPORTED OFF UNIT BY STAFF VIA W/C AT THIS TIME FOR CT PROCEDURE.
--- NOTE | 2020-11-15 12:50 | NUR ---
RETURNED TO ROOM FROM CT, ASSISTED TO BSC WITH MAX ASSIST OF 2 STAFF THEN BACK TO BED, CALL ARIAS IN REACH BED LOCKED IN LOWEST POSITION, SET UP FOR MEAL.
--- NOTE | 2020-11-15 13:28 | NUR ---
IV ABT STARTED NFUSING, PT STARTED CRYING AND BEGGING TO STOP THE INFUSION IT HURTS TOO MUCH AND SHE CANT TOLERATE IT, NOTIFIED, UNABLE TO PLACE PICC LINE PT ON PLAVIX AND STAFF NOT AVAILABLE FOR THIS PROCEDURE TILL WEDNESDAY, ADVISED TO PLACE PERIPHERAL IV WHICH PT HAD REFUSED EARLIER, NURSE WILL EXPLAIN IMPORTANCE AND NECESSITY OF TREATMENTS AGAIN AND ENCOURAGE PT TO HAVE CATHETER PLACED.
--- NOTE | 2020-11-15 17:18 | NUR ---
NOTIFIED OF PT'S CONDITION AND REPLIED TO HOLD ALL IV MEDS FOR NOW.
--- NOTE | 2020-11-16 | NUR ---
PT LAYING QUIETLY IN BED WITHOUT S/S OF DISCOMFORT. PT REQUESTED HER PURSE TO GET SOME CANDY OUT SHE REALIZES THAT HER BS DROPS DURING THE NIGHT. NURSE AGREED WITH HER AND WILL CONTINUE TO ASSESS HER FOR S/S OF HYPOGLYCEMIA.
[2020-11-16 00:21] VITALS: BP 142/90
[2020-11-16 03:54] VITALS: BP 131/84
--- NOTE | 2020-11-16 04:00 | NUR ---
PT SLEEPING WITHOUT S/S OF DISCOMFORT. CALL LIGHT AND BELONGINGS WITHIN REACH. WILL CONTINUE TO MONITOR.
--- NOTE | 2020-11-16 06:00 | NUR ---
PT RESTING IN BED SLEEPING ON AND OFF. NO S/S OF HYPOGLYCEMIA AT OVERNIGHT. CALL LIGHT AND BELONGINGS WITHIN REACH.
--- NOTE | 2020-11-16 07:10 | NUR ---
VANESSA RECEIVED FROM DUANE PINO
--- NOTE | 2020-11-16 08:26 | NUR ---
LAB AT BEDSIDE
--- NOTE | 2020-11-16 08:30 | NUR ---
PT RESTING IN SEMI FOWLERS POSITION,A&O X3;VS OBTAINED AND ASSESSMENT COMPLETED;BP ELEVATED AT 189/118 HR 103, ALL MORNING MEDICATIONS TO BE ADMINISTERED AT THIS;PT DENIES ANY CURRENT PAIN OR DISCOMFORTS,PAIN SCALE AND REPORTING EDUCATED;RESPIRATIONS EVEN AND UNLABORED ON O2 @ 2L VIA NC,CLEAR LUNG SOUNDS;ABDOMEN SOFT ON PALPATION AND ACTIVE IN ALL 4 QUADRANTS;WEAK PEDAL PULSES,SKIN INTACT;TELE MONITORING IN PLACE;LEFT SIDED WEAKNESS NOTED R/T HX OF CVA;#22G TO LEFT HAND INFUSING NS @ 50ML/HR,SITE APPEARS HEALTHY;ACCUCHECK 64, MORNING INSULIN HELD AND GEO ANRP NOTIFIED;SEIZURE PRECAUTIONS IN PLACE;PT DENIES ANY ADDITIONAL NEEDS AT THIS TIME AND IS ENCOURAGED TO CALL FOR ASSISTANCE IF NEEDED;FALL PRECAUTIONS IN PLACE WITH BED IN THE LOWEST POSITION AND CALL LIGHT IN REACH;WILL CONTINUE TO MONITOR
[2020-11-16 08:32] VITALS: BP 189/118
[2020-11-16 09:22] LABS: ALBUMIN 3.4 g/dL (3.2-5.0); CREATININE 4.7 mg/dL (0.5-1.0)
[2020-11-16 09:49] VITALS: BP 116/74
--- NOTE | 2020-11-16 09:50 | NUR ---
BP RE-CHECK 116/74 HR 94
[2020-11-16] MEDS ORDERED: NIFEDIPINE ER60 MG PO (11:08)
[2020-11-16] MEDS ORDERED: LASIX 20 MG TAB20 MG PO (11:08)
[2020-11-16 11:09] VITALS: BP 111/68
--- NOTE | 2020-11-16 11:10 | NUR ---
AT BEDSIDE DISCUSSING POC.
--- NOTE | 2020-11-16 11:35 | NUR ---
PT RESTING IN SEMI FOWLERS POSITION;RESPIRATIONS EVEN AND UNLABORED ON RA, O2 WAS REMOVED PER MD ORDERS.O2 SATS @ 96% ON RA;PT DENIES ANY CURRENT PAIN OR DISCOMFORTS;TELE MONITORING IN PLACE;IV SITE PATENT INFUSING NS WITH EASE PER ORDER;ACCUCHECK 132;PT ENCOURAGED TO CALL FOR ASSSISTANCE IF NEEDED;CALL LIGHT IN REACH;WILL CONTINUE TO MONITOR
--- NOTE | 2020-11-16 12:50 | NUR ---
ALL DISCHARGE INSTRUCTIONS PROVIDED AT THIS TIME;PT INSTRUCTED TO STOP TAKING MAXZIDE. TAKE LASIX EVERY OTHER DAY, TAKE THE PROCARDIA, CLONIDINE, & APRESOLINE DIRECTED. MONITOR YOUR BLOOD PRESSURE. MONITOR YOUT BLOOD SUGAR CLOSELY. PHYSICAL THERAPY AND HOME HEALTH TO FOLLOW. FOLLOW UP WITH IN ONE WEEK, HAVE REPEAT BLOOD WORK BEFORE APPT.PT VERBALIZES UNDERSTANDING AND DENIES ANY ADDITIONAL QUESTIONS OR NEEDS;RX'S SENT TO [facility];VOICEMAIL LEFT FOR PT MOTHER FOR TRANSPORTATION HOME,AWAITING CALL BACK;WHEELCHAIR TO BE PROVIDED FOR D/C HOME;WILL CONTINUE TO MONITOR
--- NOTE | 2020-11-16 14:00 | NUR ---
ALL DISCHARGE INSTRUCTIONS PROVIDED TO PT MOTHER AT THIS TIME;ALL BELONGINGS RETURNED FROM [facility] TO PT INCLUDING WALLET AND $820.00;IV SITE REMOVED WITH CATHETER INTACT AND TELE MONITORING D/C.PT ASSISTED INTO WHEELCHAIR WITH X2 PERSON ASSIST.
--- NOTE | 2020-11-16 14:15 | NUR ---
Discharge instructions given. Patient verbalizes understanding of same. Discharged in stable condition via Wheelchair to Home with family. All belongings sent with pt. PT TRANSPORTED TO [facility] IN STABLE CONDITION VIA WHEELCHAIR ACCOMPANIED BY JESSICA TOMAS AND [facility].ALL BELONINGS LEFT WITH PT INCLUDING MONEY FROM THE [facility].MOTHER TO TRANSPORT PT HOME.
--- NOTE | 2020-11-20 10:00 | NUR ---
Pneumonia post discharge follow up call completed today, 11/20/20. Pt. states she is doing better. No fever, chills, or SOB since discharge. Pt. obtained discharge medication and has had no issues with medication. Follow up appt with PCP is scheduled for 12/12/20. Pt. states she has not had visit from Home Health agency (not [facility]) but she has a number she can call to check on their plan for visit. No other questions or concerns voiced by patient at this time.
== END 2020-11-16 14:15 | disposition home health service (06) | DRG 305 ==
LOC: ED 22:04 → ED-I 11-09 00:40 → ED 11-09 01:11 → ICU 11-09 01:12 → MS2 11-12 10:56
PROVIDERS: Family Medicine; Internal Medicine; Internal Medicine Nephrology; Nurse Practitioner; ADMIT Internal Medicine; ATTEND Internal Medicine
PROC: 30233N1 Transfusion of Nonautologous Red Blood Cells into Peripheral Vein, Percutaneous Approach (ICD-10-PCS; principal; 2020-11-09)
DX: I16.0 Hypertensive urgency (principal); N17.9 Acute kidney failure, unspecified; N18.4 Chronic kidney disease, stage 4 (severe); J81.1 Chronic pulmonary edema; I69.954 Hemiplegia and hemiparesis following unspecified cerebrovascular disease affecting left non-dominant side; D63.1 Anemia in chronic kidney disease; E11.22 Type 2 diabetes mellitus with diabetic chronic kidney disease; N26.9 Renal sclerosis, unspecified; I10 Essential (primary) hypertension; E78.5 Hyperlipidemia, unspecified; F41.9 Anxiety disorder, unspecified; F32.9 Major depressive disorder, single episode, unspecified; E11.649 Type 2 diabetes mellitus with hypoglycemia without coma; G40.909 Epilepsy, unspecified, not intractable, without status epilepticus; E86.9 Volume depletion, unspecified; M54.5 Low back pain; M10.9 Gout, unspecified; F17.200 Nicotine dependence, unspecified, uncomplicated; W19.XXXA Unspecified fall, initial encounter; Y92.239 Unspecified place in hospital as the place of occurrence of the external cause; Z79.4 Long term (current) use of insulin; Z91.19 Patient's noncompliance with other medical treatment and regimen; Z79.02 Long term (current) use of antithrombotics/antiplatelets; Z79.82 Long term (current) use of aspirin; Z20.822 Contact with and (suspected) exposure to COVID-19
CPT/HCPCS: A9540; J1756; P9016; Q5106 EC

== ENCOUNTER 2021-04-25 19:30 | Emergency (ER) | payer OTHER ==
[~2021-04-25] VITALS: Ht 160 cm; Wt 66.0 kg
[~2021-04-25 19:30] MED LIST changes: +ADVAIR DISK1 INH; +ALLOPURINOL100 MG PO; +COLCHICINE0.6 M2 PO; +HYDRALAZINE HC100 MG PO; +KEPPRA500 M2 PO; +LASIX 20 MG TAB20 MG PO; +NIFEDIPINE ER60 MG PO; +PROVENTIL HFA IN
[2021-04-25 21:19] LABS: HEMATOCRIT 29.6 % (37.0-47.0); HEMOGLOBIN 9.1 g/dl (12.0-16.0); IMMATURE GRANULOCYTES 0.2 % (0.0-5.0); MEAN CELL VOLUME 109.2 fL CALC (80.0-100.0); MEAN CORPUSCULAR HGB 33.6 pG CALC (26.0-32.0); MEAN CORPUSCULAR HGB CONC 30.7 g/dL CAL (32.0-36.0); NEUT# 5.67 thou/uL (2.00-7.15); RED BLOOD COUNT 2.71 mill/uL (4.20-5.60); RED CELL DISTRI WIDTH 14.1 % (11.5-15.5)
[2021-04-25 21:35] LABS: ALBUMIN 3.8 g/dL (3.2-5.0); BILIRUBIN, TOTAL 0.7 mg/dL (0.0-1.4); CREATININE 2.5 mg/dL (0.5-1.0); POTASSIUM 4.8 mmol/l (3.5-5.1)
[2021-04-25] MEDS ORDERED: VISTARIL 50MG C50 MG PO (22:44)
[2021-04-25 22:54] VITALS: BP 194/126
== END 2021-04-25 23:01 | disposition home or self-care (01) ==
LOC: ED 19:30
PROVIDERS: Family Medicine
DX: L29.9 Pruritus, unspecified (principal); I12.0 Hypertensive chronic kidney disease with stage 5 chronic kidney disease or end stage renal disease; E11.22 Type 2 diabetes mellitus with diabetic chronic kidney disease; N18.6 End stage renal disease; G40.909 Epilepsy, unspecified, not intractable, without status epilepticus; F17.200 Nicotine dependence, unspecified, uncomplicated; Z79.4 Long term (current) use of insulin; Z86.73 Personal history of transient ischemic attack (TIA), and cerebral infarction without residual deficits; Z99.2 Dependence on renal dialysis

== ENCOUNTER 2021-04-29 23:14 | Emergency (ER) | payer OTHER ==
[~2021-04-29] VITALS: Ht 160 cm; Wt 65.0 kg
[~2021-04-29 23:14] MED LIST changes: +VISTARIL 50MG C50 MG PO
[2021-04-29 23:47] LABS: HEMOGLOBIN 8.4 g/dl (12.0-16.0); IMMATURE GRANULOCYTES 0.2 % (0.0-5.0); MEAN CELL VOLUME 108.4 fL CALC (80.0-100.0); MEAN CORPUSCULAR HGB 33.7 pG CALC (26.0-32.0); MEAN CORPUSCULAR HGB CONC 31.1 g/dL CAL (32.0-36.0); NEUT# 8.55 thou/uL (2.00-7.15); RED BLOOD COUNT 2.49 mill/uL (4.20-5.60); RED CELL DISTRI WIDTH 14.1 % (11.5-15.5)
[2021-04-30 00:16] LABS: TOTAL PROTEIN 8.1 g/dL (6.3-8.2)
[2021-04-30 00:24] LABS: CREATININE 4.8 mg/dL (0.5-1.0)
[2021-04-30 00:25] LABS: BILIRUBIN, TOTAL 1.2 mg/dL (0.0-1.4)
[2021-04-30 01:00] VITALS: BP 180/111
[2021-04-30] MEDS ORDERED: TRANDATE300 MG PO (18:17)
== END 2021-04-30 01:20 | disposition home or self-care (01) ==
LOC: ED 23:14
DX: I13.2 Hypertensive heart and chronic kidney disease with heart failure and with stage 5 chronic kidney disease, or end stage renal disease (principal); I50.9 Heart failure, unspecified; E11.22 Type 2 diabetes mellitus with diabetic chronic kidney disease; N18.6 End stage renal disease; E11.65 Type 2 diabetes mellitus with hyperglycemia; J45.909 Unspecified asthma, uncomplicated; G40.909 Epilepsy, unspecified, not intractable, without status epilepticus; F17.200 Nicotine dependence, unspecified, uncomplicated; Z86.73 Personal history of transient ischemic attack (TIA), and cerebral infarction without residual deficits; Z79.4 Long term (current) use of insulin; Z99.2 Dependence on renal dialysis

== ENCOUNTER 2021-04-30 17:18 | Emergency (ER) | payer OTHER ==
[~2021-04-30] VITALS: Ht 160 cm; Wt 64.5 kg
[2021-04-30] MEDS ORDERED: TRANDATE300 MG PO (18:17)
[2021-04-30 18:54] LABS: HEMATOCRIT 27.8 % (37.0-47.0); HEMOGLOBIN 8.8 g/dl (12.0-16.0); IMMATURE GRANULOCYTES 0.4 % (0.0-5.0); MEAN CELL VOLUME 107.3 fL CALC (80.0-100.0); MEAN CORPUSCULAR HGB CONC 31.7 g/dL CAL (32.0-36.0); NEUT# 9.3 thou/uL (2.00-7.15); RED BLOOD COUNT 2.59 mill/uL (4.20-5.60); RED CELL DISTRI WIDTH 13.8 % (11.5-15.5)
[2021-04-30 19:10] LABS: TOTAL PROTEIN 8.6 g/dL (6.3-8.2)
[2021-04-30 19:16] LABS: CREATININE 3.1 mg/dL (0.5-1.0); POTASSIUM 3.9 mmol/l (3.5-5.1)
[2021-04-30 21:49] VITALS: BP 221/113
== END 2021-04-30 21:54 | disposition short-term general hospital (02) ==
LOC: ED 17:18
PROVIDERS: Family Medicine
DX: I16.1 Hypertensive emergency (principal); I12.0 Hypertensive chronic kidney disease with stage 5 chronic kidney disease or end stage renal disease; E11.22 Type 2 diabetes mellitus with diabetic chronic kidney disease; N18.6 End stage renal disease; I69.30 Unspecified sequelae of cerebral infarction; G40.909 Epilepsy, unspecified, not intractable, without status epilepticus; F17.200 Nicotine dependence, unspecified, uncomplicated; Z99.2 Dependence on renal dialysis; Z79.4 Long term (current) use of insulin; Z20.822 Contact with and (suspected) exposure to COVID-19
CPT/HCPCS: J2060